=== PATIENT | female | born 1965 ===

== ENCOUNTER 2020-06-16 10:42 | Outpatient (REF) | payer OTHER, SELFPAY ==
--- NOTE | 2020-06-16 | MM_ITS ---
EXAMINATION: MM SCREENING DIGITAL BREAST TOMOSYNTHESIS, BILATERAL CLINICAL INFORMATION: Screening. Asymptomatic. Family history breast cancer, aunt. No prior breast surgery. The lifetime risk of breast cancer based on the Tyrer-Cuzick Model is 6%. COMPARISON: Outside mammography: 05/08/2019, 05/04/2018, 05/03/2017 ([place]) TECHNIQUE: Digital breast tomosynthesis is performed in both the craniocaudal and mediolateral oblique views along with computer-aided detection (CAD). Synthesized 2D images are generated from the tomosynthesis. FINDINGS: The breasts are heterogeneously dense, which may obscure small masses (ACR BI-RADS breast composition Category c). Breast tissue composition borders on average fibroglandular. There is no interval mass or architectural abnormality or developing density. Scattered punctate calcifications and vascular calcifications are again seen. The axilla and skin contours are unremarkable. No significant changes from prior outside exam. MM/MM tomosynthesis screening BI IMPRESSION: No significant changes from prior outside study. ASSESSMENT: BI-RADS 2: Benign RECOMMENDATION: Routine annual mammography screening. This patient's information was entered into a reminder system with a target due date for their next mammogram.
== END 2020-06-16 10:43 | disposition home or self-care (01) ==
LOC: HO.MAMMO 10:42
PROVIDERS: PCP Family Medicine; Visit Provider Family Medicine
DX: Z12.31 Encounter for screening mammogram for malignant neoplasm of breast (principal)
CPT/HCPCS: 77063; 77067

== ENCOUNTER → 2020-06-30 13:08 | Outpatient (BNVA) | payer OTHER, SELFPAY | PROVIDERS: PCP Family Medicine; Referring Provider Family Medicine; Visit Provider Nurse Practitioner | DX: Z76.89 Persons encountering health services in other specified circumstances (principal) ==

== ENCOUNTER 2020-07-08 | Outpatient (REF) | payer OTHER, SELFPAY ==
[2020-07-09 12:34] LABS: Creatinine Urine 192.48 mg/dL; Microalbum/Creatinine Ratio Ur 6.7 ug/mg cr
== END 2020-07-08 00:01 | disposition home or self-care (01) ==
LOC: HO.LNP
PROVIDERS: Visit Provider Family Medicine
DX: I10 Essential (primary) hypertension (principal); E11.9 Type 2 diabetes mellitus without complications; Z23 Encounter for immunization
CPT/HCPCS: 82043

== ENCOUNTER 2020-08-14 10:08 | Outpatient (REF) | payer OTHER, SELFPAY ==
[2020-08-14 10:45] LABS: MANUAL DIFF FLAG NO
[2020-08-14 10:49] LABS: Basophils Percent Auto 0.6 % (0-2); Eosinophils Percent Auto 0.4 % (0-4); Hemoglobin 12.3 g/dl (12.0-16.0); Imm Gran Abs Auto 0.02 X10*3/uL (0.00-0.03); Imm Gran Pct Auto 0.3 % (0.0-0.4); Lymphocytes Absolute Auto 2.6 X10*3/uL (1.2-4.9); Lymphocytes Percent Auto 37.1 % (20-40); Mean Corpuscular HGB Conc 33.2 g/dl (31.0-35.0); Mean Corpuscular Hemoglobin 31.1 pg (27.0-33.0); Mean Corpuscular Volume 93.7 fL (80-98); Mean Platelet Volume 11.1 fL (9.4-12.3); Monocytes Absolute Auto 0.5 X10*3/uL (0.1-1.2); Monocytes Percent Auto 7.7 % (2-11); Neutrophils Absolute Auto 3.8 X10*3/uL (2.0-8.3); Neutrophils Percent Auto 53.9 % (45-73); Platelet Count 316 X10*3/uL (160-400); Red Blood Count 3.95 X10*6/uL (4.20-5.50); Red Cell Distribution Width 12.2 % (11.0-16.0)
[2020-08-14 11:16] LABS: Alanine Aminotransferase 42 U/L (0-31); Albumin Level 4.2 g/dL (3.5-5.0); Alkaline Phosphatase 114 U/L (39-117); Anion Gap 16 (12-20); Aspartate Amino Transferase 31 U/L (5-31); Bilirubin Total 0.3 mg/dL (0.0-1.0); Blood Urea Nitrogen 17 mg/dL (9-16); Calcium 8.9 mg/dL (8.4-10.2); Carbon Dioxide 24 mmol/L (22-29); Chloride 103 mmol/L (96-108); Estimated Glomerular Filt Rate > 60; Glucose Random 209 mg/dL (60-115); Potassium 4.6 mmol/l (3.3-5.1); Sodium 138 mmol/L (135-145); Total Protein 7.8 g/dL (6.5-8.0)
[2020-08-15 11:47] LABS: Alpha Fetoprotein 1.6 ng/mL
== END 2020-08-14 10:09 | disposition home or self-care (01) ==
LOC: HO.LAB 10:08
PROVIDERS: PCP Family Medicine; Visit Provider Nurse Practitioner
DX: K75.81 Nonalcoholic steatohepatitis (NASH) (principal); R10.13 Epigastric pain
CPT/HCPCS: 36415; 80053; 82105; 85025

== ENCOUNTER 2020-09-10 10:48 | Outpatient (REF) | payer OTHER, SELFPAY ==
--- NOTE | ~2020-09-10 | US_ITS ---
EXAMINATION: US ABDOMEN LIMITED CLINICAL INFORMATION: MENENDEZ. COMPARISON: Ultrasound abdomen 07/17/2019 and 12/05/2018. TECHNIQUE: Real-time imaging of the right upper quadrant abdominal viscera. FINDINGS: PANCREAS: Normal. LIVER: Liver echotexture is increased probably representing fatty infiltration. The liver is normal in size. The liver contour is normal. No focal hepatic lesion. There is no intrahepatic biliary duct dilatation seen. GALLBLADDER: The gallbladder is contracted. The patient is nonfasting. No gallstones are seen. COMMON BILE DUCT: Normal in caliber measuring 0.4 cm in diameter. RIGHT KIDNEY: Normal. No hydronephrosis. No renal calculi or focal parenchymal lesions. The kidney measures 11.4 cm in maximum dimension. FREE FLUID: None. US/US abdomen limited IMPRESSION: Echogenic liver probably representing fatty infiltration.
== END 2020-09-10 10:49 | disposition home or self-care (01) ==
LOC: HO.HMGCX 10:48
PROVIDERS: Visit Provider Nurse Practitioner
DX: K75.81 Nonalcoholic steatohepatitis (NASH) (principal)
CPT/HCPCS: 76705

== ENCOUNTER → 2020-09-17 14:12 | Outpatient (BNVA) | payer OTHER, SELFPAY | PROVIDERS: PCP Internal Medicine; Visit Provider Nurse Practitioner ==

== ENCOUNTER → 2020-09-19 13:27 | Outpatient (BNVA) | payer OTHER, SELFPAY | PROVIDERS: PCP Family Medicine; Visit Provider Nurse Practitioner Gerontology | DX: E11.65 Type 2 diabetes mellitus with hyperglycemia (principal) | CPT/HCPCS: 82947; 99212 ==

== ENCOUNTER 2020-11-20 10:05 | Emergency (ER) | payer OTHER, SELFPAY ==
[2020-11-20 11:18] VITALS: BP 143/98; PULSE 91; RESP 18; TEMP 36.9; O2SAT 98; BMI 26.2
--- NOTE | 2020-11-20 11:46 | ED_ITS ---
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 Patient states 5 day history right lower back pain lumbar spine radiating down right leg. Pain increases with ROM and ambulation. Pain is 8/10 and achy. Patient state she has long history of back pain and also a prior history of kidney stones. Patient also has history diabetes and is also on gabapentin for chronic pain. <Enrique Esquivel - Last Filed: 11/20/20 14:40> Related Data Home medications: Previous Rx's Medication Instructions Recorded alcohol swabs 100 pad TOPICAL TID #100 cap 05/07/20 omeprazole 20 mg capsule,delayed 20 mg PO BID 30 Days #60 cap 06/30/20 release metformin 500 mg tablet,extended 500 mg PO BID #180 tab 10/14/20 release 24 hr blood-glucose meter #1 ea 10/15/20 topiramate 25 mg tablet 25 mg PO BID #180 tab 10/21/20 nabumetone 500 mg tablet 500 mg PO BID PRN #60 tab 12/04/20 blood sugar diagnostic 100 strip MISCELLANEOUS TID #100 12/05/20 strip cetirizine 10 mg tablet 10 mg PO DAILY #30 tab 12/05/20 clotrimazole 1 % topical cream 1 appl TOPICAL QAM AND QHS 10 Days 12/05/20 #30 g gabapentin 100 mg capsule 100 mg PO TID #90 cap 12/05/20 lancets 28 gauge #100 ea 12/05/20 sitagliptin 100 mg tablet 100 mg PO DAILY #90 tab 12/05/20 <Enrique Martínez Last Filed: 11/20/20 14:40> Allergies/adverse reactions: Allergies Allergy/AdvReac Type Severity Reaction Status Date / Time No Known Allergies Allergy Verified 12/04/20 13:16 <Enrique Martínez Last Filed: 11/20/20 14:40> Review of Systems Review of Systems: Constitutional : No Weight loss, No Fever, No Chills, No Night Sweats, No Fatigue, No Malaise ENT/Mouth : No Hearing loss, No Ear Pain, No Nasal Congestion, No Sinus Pain, No Hoarseness, No sore throat, No Rhinorrhea, No Swallowing Difficulty Eyes: No Eye Pain, No Swelling, No Redness, No Foreign Body, No Discharge, No Vision Changes Cardiovascular : No Chest Pain, No SOB, No Dyspnea on Exertion, No Orthopnea, No Edema, No Palpitations Respiratory : No Cough, No Sputum, No Wheezing, No Smoke Exposure, No Dyspnea Gastrointestinal : No Nausea, No Vomiting, No Diarrhea, No Constipation, No abdominal Pain, No Hematochezia, No Melena Genitourinary : no irregular bleeding, No Dysuria, No Urinary Frequency, No Hematuria, No Urinary Incontinence, No Urgency, No Flank Pain, No Urinary Flow Changes, No Hesitancy Musculoskeletal : Positive right-sided lumbar back pain radiating down the right leg. Neuro : No Weakness, No Numbness, No Paresthesias, No Loss of Consciousness, No Dizziness, No Headache Psych : No Anxiety/Panic, No Depression, No SI/HI/AH/VH, No Social Issues, Heme/Lymph: No Bruising, No Bleeding,No Lymphadenopathy Endocrine : No Polyuria, No Polydipsia, No Temperature Intolerance <Enrique Esquivel - Last Filed: 11/20/20 14:40> [facility] Past Medical History Attestation statement: The following information was validated with the patient. <Enrique Esquivel - Last Filed: 11/20/20 14:40> Medical History: Medical History (Updated 12/04/20 @ 13:32 by Jocelyne Bravo MD) Diabetes Diabetes mellitus due to underlying condition, uncontrolled, with hyperglycemia, without long-term current use of insulin HTN (hypertension) Menopause MENENDEZ (nonalcoholic steatohepatitis) Sepsis due to urinary tract infection Type 2 diabetes mellitus with hyperglycemia <Enrique Esquivel - Last Filed: 11/20/20 14:40> Surgical History: Surgical History History of carpal tunnel surgery (~05/2020) History of esophagogastroduodenoscopy Hx of colonoscopy <Enrique Esquivel - Last Filed: 11/20/20 14:40> Family History Family History: Family History Father Stomach cancer Mother No problems noted. Brother No problems noted. Maternal Grandmother Diabetes Brother Diabetes Sister Diabetes <Enrique Esquivel - Last Filed: 11/20/20 14:40> Social History Social History: Social History Household Members: Significant Other and Family Alcohol intake: current Alcohol intake frequency: does not drink Smoking Status: Never smoker <Enrique Esquivel - Last Filed: 11/20/20 14:40> Physical Exam Vital Signs: Vital Signs: Last Vital Signs Temp 98.9 F 11/20/20 14:35 Pulse 85 11/20/20 14:35 Resp 14 11/20/20 14:35 BP 112/69 11/20/20 14:35 Pulse Ox 98 11/20/20 14:35 Body Mass Index 26.2 vital signs have been reviewed as normal and appeared to be correct. Blood pressure normal. Heart rate normal. Respiration rate normal. Temperature normal. Oxygen saturation normal. <Enrique Esquivel - Last Filed: 11/20/20 14:40> Vital Signs: Last Vital Signs Temp 98.9 F 11/20/20 14:35 Pulse 85 11/20/20 14:35 Resp 14 11/20/20 14:35 BP 112/69 11/20/20 14:35 Pulse Ox 98 11/20/20 14:35 Body Mass Index 26.2 <Vlad Gutierrez MD - Last Filed: 12/06/20 01:22> Appearance: Alert. Oriented X3. No acute distress. Head: Normal external exam. Normocephalic. Atraumatic. No Haddad signs noted. No raccoon eyes noted Eyes: PERRLA. EOMI. Conjunctiva and sclera normal. Eyelids normal. ENT: EAC normal. TM's Normal. Pharynx normal. Uvula midline. Moist mucous membranes. No trismus noted. No drooling noted. No muffled voice noted. Neck: Normal inspection. Neck supple. FROM. No adenopathy. Thyroid Normal. No meningeal signs. No neck mass noted. CVS: Normal heart rate and rhythm. Heart sound normal. No murmurs noted. Pulses normal throughout. Respiratory: No respiratory distress. Painless inspiration. Breath sounds normal. No wheezes/rales/rhonchi noted. Chest nontender. No accessory muscle usage noted or decreased air movement noted. Abdomen: Soft and nontender. Bowel sounds normal in all 4 quadrants. No distention noted. No organomegaly noted. No visible injury noted. No pulsatile mass palpated Back: Positive paraspinal muscle tenderness of the lumbar spine on the right side no midline tenderness Skin: Skin warm and dry. Normal skin color. Normal skin turgor. No rashes/lesions/lacerations noted. Extremities: Positive straight leg raise on the right no dependent edema noted right calf nontender. Positive pulses sensation intact Neuro: Oriented X 3. No motor deficit. No sensory deficit. Reflexes normal. <Enrique Esquivel - Last Filed: 11/20/20 14:40> Course Course Course Narrative: Case discussed with Dr. Gutierrez plan to get a UA at this time. Pain likely secondary to musculoskeletal pain with a positive straight leg raise 1:27 p.m. minimal relief with a 5 mg Valium given will give patient 5 mg Percocet at this time. <Enrique Esquivel - Last Filed: 11/20/20 14:40> I have discussed the case and management with the BILLIE <Vlad Gutierrez MD - Last Filed: 12/06/20 01:22> Medical Decision Making MDM Narrative Medical decision making narrative: Symptoms seem consistent with a right leg sciatica with a positive straight leg raise will check UA for blood. <Enrique Esquivel - Last Filed: 11/20/20 14:40> Differential Diagnosis Differential Diagnosis: Lumbar strain, right leg sciatica, renal calculi, UTI <Enrique Esquivel - Last Filed: 11/20/20 14:40> Lab Data Labs: Lab Results 11/20/20 Range/Units 12:20 Urine Color YELLOW Urine Appearance CLEAR Urine pH 7.0 (5.0-8.0) Ur Specific [place] 1.020 (1.005-1.025) Urine Protein NEG (NEG-TRACE) MG/DL Urine Glucose (UA) 100 H (NEG) MG/DL Urine Ketones NEG (NEG) MG/DL Urine Blood TRACE (NEG) Urine Nitrite NEG (NEG) Ur Leukocyte Esterase NEG (NEG) Urine RBC 1-4 (0) /HPF Urine WBC 0 (0-4) /HPF Ur Squamous Epith Cells TRACE /LPF Urine Bacteria NONE /LPF <Enrique Esquivel - Last Filed: 11/20/20 14:40> Lab Results 11/20/20 Range/Units 12:20 Urine Color YELLOW Urine Appearance CLEAR Urine pH 7.0 (5.0-8.0) Ur Specific [place] 1.020 (1.005-1.025) Urine Protein NEG (NEG-TRACE) MG/DL Urine Glucose (UA) 100 H (NEG) MG/DL Urine Ketones NEG (NEG) MG/DL Urine Blood TRACE (NEG) Urine Nitrite NEG (NEG) Ur Leukocyte Esterase NEG (NEG) Urine RBC 1-4 (0) /HPF Urine WBC 0 (0-4) /HPF Ur Squamous Epith Cells TRACE /LPF Urine Bacteria NONE /LPF <Vlad Gutierrez MD - Last Filed: 12/06/20 01:22> Discharge Plan Discharge Clinical Impression: Sciatic leg pain <Enrique Esquivel - Last Filed: 11/20/20 14:40> Patient Disposition: Home, Self-Care <Enrique Martínez Last Filed: 11/20/20 14:40> Instructions: Sciatica (ED), Lower Back Exercises (ED) <Enrique Martínez Last Filed: 11/20/20 14:40> Prescriptions: No Action alcohol swabs [Alcohol Prep Pads] Pads, Medicated 100 pad topical TID Qty: 100 RF: 0 metformin 500 mg tablet extended release 24 hr 500 mg PO BID Qty: 180 RF: 2 (DME) blood-glucose meter [FreeStyle Lite Meter] Kit See Rx Instructions .ROUTE .MEDSUPPLY Qty: 1 RF: 0 topiramate 25 mg tablet 25 mg PO BID Qty: 180 RF: 1 sitagliptin [Januvia] 100 mg tablet 100 mg PO DAILY Qty: 90 RF: 0 (DME) lancets 28 gauge misc See Rx Instructions lancet topical TID Qty: 100 RF: 5 FreeStyle Lite Strips Strip 100 strip miscellaneous TID Qty: 100 RF: 5 clotrimazole 1 % cream 1 appl topical QAM AND QHS 10 Days Qty: 30 RF: 0 gabapentin 100 mg capsule 100 mg PO TID Qty: 90 RF: 0 cetirizine 10 mg tablet 10 mg PO DAILY Qty: 30 RF: 3 nabumetone 500 mg tablet 500 mg PO BID PRN (Reason: pain (scale score 4-6)) Qty: 60 RF: 0 omeprazole 20 mg capsule,delayed release(DR/EC) 20 mg PO BID 30 Days Qty: 60 RF: 3 <Enrique Esquivel - Last Filed: 11/20/20 14:40> Referrals: Jocelyne Bravo MD [Primary Care Provider] - 2 days <Enrique Esquivel - Last Filed: 11/20/20 14:40> Interventions: ED Discharge Assessment Last Done: 11/20/20 14:37 <Enrique Esquivel - Last Filed: 11/20/20 14:40> Discharge Date/Time: 11/20/20 14:37 <Enrique Esquivel - Last Filed: 11/20/20 14:40> Print Language: Korean <Enrique Esquivel - Last Filed: 11/20/20 14:40>
[2020-11-20 12:30] LABS: Glucose Urine UA 100 MG/DL (NEG); Leukocyte Esterase Urine NEG (NEG); Nitrite Urine NEG (NEG); Urine Blood TRACE (NEG); Urine Ketones NEG (NEG); Urine Protein NEG (NEG-TRACE)
[2020-11-20 12:31] LABS: Appearance Urine CLEAR; Color Urine YELLOW
[2020-11-20 12:49] LABS: Squamous Epithelial Cell Urine TRACE /LPF; WBC Urine 0 /HPF (0-4)
[2020-11-20] MEDS: diazePAM 5 MG TABLET PO (12:54)
[2020-11-20] MEDS: oxyCODONE HCl Immed Release 5 MG TABLET PO (14:00)
[2020-11-20 14:35] VITALS: BP 112/69; PULSE 85; RESP 14; TEMP 37.2; O2SAT 98
== END 2020-11-20 14:37 | disposition home or self-care (01) ==
PROVIDERS: Physician Assistant; Emergency Provider Emergency Medicine; PCP Internal Medicine
DX: M54.41 Lumbago with sciatica, right side (principal); M25.551 Pain in right hip; Z79.899 Other long term (current) drug therapy
CPT/HCPCS: 81001; 99284

== ENCOUNTER → 2020-12-19 14:32 | Outpatient (BNVA) | payer OTHER, SELFPAY | PROVIDERS: PCP Internal Medicine; Visit Provider Nurse Practitioner Gerontology | DX: E11.65 Type 2 diabetes mellitus with hyperglycemia (principal); R20.0 Anesthesia of skin; R35.0 Frequency of micturition; R35.1 Nocturia; R63.1 Polydipsia; Z79.4 Long term (current) use of insulin; Z79.899 Other long term (current) drug therapy | CPT/HCPCS: 82947; 99212 ==

== ENCOUNTER → 2021-01-01 16:04 | Outpatient (BNVA) | payer OTHER, SELFPAY | PROVIDERS: PCP Internal Medicine; Visit Provider Anesthesiology | DX: M51.36 Other intervertebral disc degeneration, lumbar region (principal); M54.16 Radiculopathy, lumbar region | CPT/HCPCS: 99202 ==

== ENCOUNTER 2021-02-09 17:55 | Outpatient (REF) | payer OTHER, SELFPAY ==
--- NOTE | ~2021-02-09 | MR_ITS ---
EXAMINATION: MR LUMBAR SPINE WITHOUT CONTRAST CLINICAL INFORMATION: 55-year-old with radiculopathy, lumbar region. Patient states low back pain and right leg pain and numbness. COMPARISON: None TECHNIQUE: MRI of the lumbar spine was obtained using routine sequences without contrast. FINDINGS: Coronal Alignment: Mild upper lumbar levocurvature noted. Sagittal Alignment: Normal. Lumbosacral Junction: Normal. Vertebral Bodies: Normal height. Disc Space Heights: Moderate disc space height loss at L5-S1 is noted with associated disc desiccation. Remaining lumbar intervertebral disc space heights are well maintained, with moderate disc desiccation at L4-L5 and L3-L4. Bone Marrow: No significant marrow-replacing process or bone marrow edema. Conus Medullaris: Terminates at T12-L1.. Morphology and signal is normal. Intradural Nerve Roots: Within normal limits. L5-S1: Anterolateral spondylosis asymmetric to the left and diffuse disc bulging is noted slightly asymmetric to the right, with a small right subarticular extruded disc herniation with slight cephalad migration, with mild flattening of the dural sac and minimal narrowing of the right subarticular zone. Mild facet arthrosis is noted bilaterally with [id number] right-sided and moderate left-sided neural foraminal stenosis without definite neural impingement. L4-L5: Mild diffuse disc bulging is noted with a small central annular fissure and slight flattening of the ventral dural sac with minor anterolateral spondylosis. There is [id number] bilateral facet arthropathy with mild ligament of flavum thickening, without significant spinal canal stenosis. No significant neural foraminal stenosis. L3-L4: Mild diffuse disc bulging is noted with a right lateral foraminal annular fissure and slight flattening of the dural sac with minor spondylosis. There is zdrk-sc-[id number] facet arthrosis without significant canal stenosis. There is mild right-sided neural foraminal narrowing without neural impingement. L2-L3: Small right-sided foraminal/extra foraminal disc protrusion noted without neural impingement. Minor spondylosis. No significant facet arthropathy, canal or neuroforaminal stenosis. L1-L2: No disc bulge or herniation and no significant facet arthropathy, canal or neuroforaminal stenosis. Paraspinal/Retroperitoneal: The paravertebral soft tissues appear grossly unremarkable. MR/MR lumbar spine wo con IMPRESSION: 1. Discogenic degenerative changes primarily at L5-S1 with spondylosis, disc bulging and mild facet arthrosis at this level with a superimposed small right subarticular extruded disc herniation with slight cephalad migration with mild narrowing of the right subarticular zone and ehxh-ne-ezkoabwo foraminal narrowing, left more than right. 2. Mild disc bulging and ipxs-hg-gcwfbnag facet arthropathy at L4-5 without significant spinal canal or neuroforaminal narrowing. 3. Disc bulging and right lateral annular fissuring at L3-4 with facet arthropathy and mild right-sided neural foraminal narrowing without neural impingement.
== END 2021-02-09 17:56 | disposition home or self-care (01) ==
LOC: HO.MRI 17:55
PROVIDERS: PCP Internal Medicine; Visit Provider Anesthesiology
DX: M54.16 Radiculopathy, lumbar region (principal); M51.36 Other intervertebral disc degeneration, lumbar region
CPT/HCPCS: 72148

== ENCOUNTER 2021-02-12 09:00 | Outpatient (RCR) | payer OTHER, SELFPAY ==
--- NOTE | 2020-12-17 11:36 | MHC.PT.EP ---
[facility] [place] Office [place] Office [place] Office [address] Cami Wen [address] [phone] F: [phone] F: [phone] F: [phone] F: [phone] Physical Therapy Plan of Care Date of Evaluation: Date of Surgery: Diagnosis: LUMBAR REGION RADICULOPATHY Assessment: 55 YO FEMALE REF TO PT W RIGHT LBP/ RADICULOPATHY EXACERBATED 11/15/20 - SHE WENT TO THE ER DUE TO SXS,DX W SCIATICA, Pt HAS A H/O LBP. OBJECTIVE FINDINGS: DECR HIP AND HS FLEXIB, DECR POSTURAL AWARENESS AND POOR BODY MECH,(-) SENSORIMOTOR DEFICITS , (+) PELVIC ASYM, LIMITED TRUNK EXT, AND GENERAL PROX LEs/ CORE WEAKNESS. 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 Frequency and Duration: The patient will be seen 2x WEEK x 5 WKS Short Term Goals: Pt'S LBP DECR TO 09/03 AND Rt LE RADIC SXS REDUCED BY 75% IN 2 WKS Pt INDEP W SELF POSTURAL CORRECTION IN 2 WKPt DEMON WFL HIP/ HS FLEXIB AND WFL PELVIC SYMM IN 3 WKS Agricultural Education Instructor Goals: Pt INDEP W HEP AND SELF-SX MGMT TECHN IN 5 WKS Pt RESUME REG ADLs/ ACTIVITIES EVIDENT W IMPROVED OSWESTRY BY AT LEAST 5 POINTS ( 31/45 AT EVAL) IN 5 WKS Treatment Plan: Modalities to reduce pain, spasms and effusion. Manual therapy to restore motion and function. Therapeutic exercise to improve strength and flexibility. Neuromuscular re-education for posture and balance. Therapeutic activities to return to functional activities of daily living. Electronically signed by: Vikki Syed,PT Please sign and return to therapist. Thank you for your referral.
--- NOTE | 2021-02-12 14:42 | MHC.PT.DC ---
[facility] [place] Office [place] Office [place] Office [address] Cami Wen [address] [phone] F: [phone] F: [phone] F: [phone] F: [phone] Physical Therapy Discharge Report Diagnosis: LUMBAR REGION RADICULOPATHY Date of Surgery: Date of Evaluation: 12/17/20 Date of Discharge: 02/12/21 Treatments to Date: 8 Cancellations to Date: 2 No Shows to Date: 2 Discharge Status: Patient Elected to Stop Recommend MD Follow-up Visit Non-compliance Discharge Summary: Pt I with HEP. Pt states she feels some sx relief after PT, however, she notes intermittent radicular sxs into her toes - recommend MD f/u if sxs persist despite HEP and self-postural correction. Pt had diffic attending sched PT appts, she has a thorough HEP for progression. Electronically signed by: Vikki Syed,PT Please sign and return to therapist. Thank you for your referral.
== END 2021-02-12 14:44 | disposition home or self-care (01) ==
LOC: HO.PTCHIC 09:00
PROVIDERS: PCP Internal Medicine; Visit Provider Hospitalist
DX: M54.16 Radiculopathy, lumbar region (principal)
CPT/HCPCS: 97110; 97140; 97161

== ENCOUNTER 2021-03-09 10:03 | Outpatient (REF) | payer OTHER, SELFPAY ==
[2021-03-09 13:46] LABS: Creatinine Urine 251.33 mg/dL; Microalbum/Creatinine Ratio Ur 7.9 ug/mg cr
[2021-03-09 13:49] LABS: Alanine Aminotransferase 25 U/L (0-31); Albumin Level 4.2 g/dL (3.5-5.0); Alkaline Phosphatase 89 U/L (39-117); Anion Gap 15 (12-20); Aspartate Amino Transferase 23 U/L (5-31); Bilirubin Total 0.3 mg/dL (0.0-1.0); Blood Urea Nitrogen 13 mg/dL (9-16); Calcium 9.3 mg/dL (8.4-10.2); Carbon Dioxide 22 mmol/L (22-29); Chloride 109 mmol/L (96-108); Cholesterol 227 mg/dL; Estimated Glomerular Filt Rate > 60; Glucose Fasting 158 mg/dL (60-99); HDL Cholesterol 43 mg/dL; LDL Cholesterol Calculated 139 mg/dl; Potassium 4.1 mmol/L (3.3-5.1); Sodium 142 mmol/L (135-145); Total Protein 7.4 g/dL (6.5-8.0); Triglycerides 229 mg/dL
[2021-03-09 14:10] LABS: Vitamin D 25-OH Total 21.8 ng/mL (>30)
[2021-03-11 02:52] LABS: LDL Cholesterol Direct 153 mg/dL (<100)
== END 2021-03-09 10:04 | disposition home or self-care (01) ==
LOC: HO.LAB 10:03
PROVIDERS: Nurse Practitioner Gerontology; PCP Internal Medicine; Visit Provider Internal Medicine
DX: E11.65 Type 2 diabetes mellitus with hyperglycemia (principal); Z78.0 Asymptomatic menopausal state
CPT/HCPCS: 36415; 80053; 80061; 82043; 82306; 83721

== ENCOUNTER → 2021-03-10 13:01 | Outpatient (BNVA) | payer OTHER, SELFPAY | PROVIDERS: PCP Internal Medicine; Visit Provider Nurse Practitioner ==

== ENCOUNTER 2021-04-09 09:55 | Outpatient (REF) | payer OTHER, SELFPAY ==
--- NOTE | ~2021-04-09 | US_ITS ---
EXAMINATION: US ABDOMEN LIMITED CLINICAL INFORMATION: Nonalcoholic steatohepatitis. COMPARISON: Limited abdominal ultrasound 09/10/2020. Ultrasound abdomen 07/17/2019. TECHNIQUE: Real-time imaging of the right upper quadrant abdominal viscera. FINDINGS: PANCREAS: Normal. LIVER: Liver echotexture is increased probably representing fatty infiltration. This is similar to previous exam. The liver is normal in size. The liver contour is normal. No focal hepatic lesion. There is no intrahepatic biliary duct dilatation seen. GALLBLADDER: Normal. The gallbladder is physiologically distended without evidence of stones, sludge, polyps, wall thickening or pericholecystic fluid. COMMON BILE DUCT: Normal in caliber measuring 0.3 cm in diameter. RIGHT KIDNEY: Normal. No hydronephrosis. No renal calculi or focal parenchymal lesions. The kidney measures 12.0 cm in maximum dimension. FREE FLUID: None. US/US abdomen limited IMPRESSION: Echogenic liver probably representing fatty infiltration.
[2021-04-09 11:15] LABS: MANUAL DIFF FLAG NO
[2021-04-09 11:41] LABS: Basophils Percent Auto 0.3 % (0-2); Eosinophils Percent Auto 0.6 % (0-4); Hematocrit 35.7 % (37-47); Hemoglobin 11.4 g/dl (12.0-16.0); Imm Gran Abs Auto 0.03 X10*3/uL (0.00-0.03); Imm Gran Pct Auto 0.4 % (0.0-0.4); Lymphocytes Absolute Auto 2.5 X10*3/uL (1.2-4.9); Lymphocytes Percent Auto 36.4 % (20-40); Mean Corpuscular HGB Conc 31.9 g/dl (31.0-35.0); Mean Corpuscular Hemoglobin 30.5 pg (27.0-33.0); Mean Corpuscular Volume 95.5 fL (80-98); Mean Platelet Volume 10.9 fL (9.4-12.3); Monocytes Absolute Auto 0.6 X10*3/uL (0.1-1.2); Monocytes Percent Auto 8.2 % (2-11); Neutrophils Absolute Auto 3.7 X10*3/uL (2.0-8.3); Neutrophils Percent Auto 54.1 % (45-73); Platelet Count 259 X10*3/uL (160-400); Red Blood Count 3.74 X10*6/uL (4.20-5.50); Red Cell Distribution Width 12.9 % (11.0-16.0); White Blood Count 6.9 X10*3/uL (4.8-10.8)
[2021-04-09 11:46] LABS: Amylase 82 U/L (28-100); Appearance Urine CLEAR; Blood Urea Nitrogen 14 mg/dL (9-16); Color Urine YELLOW; Estimated Glomerular Filt Rate > 60; Glucose Urine UA NEG (NEG); Lactate Dehydrogenase 175 U/L (122-220); Leukocyte Esterase Urine NEG (NEG); Lipase 34 U/L (8-78); Nitrite Urine NEG (NEG); PH 5.5 (5.0-8.0); Specific Gravity - Urine >= 1.030 (1.005-1.025); UACC Culture Trigger NO; Urine Blood TRACE (NEG); Urine Ketones NEG (NEG); Urine Protein NEG (NEG-TRACE)
[2021-04-09 12:00] LABS: Mucus Urine 2+ /LPF; RBC Urine 0-2 /HPF (0); Squamous Epithelial Cell Urine TRACE /LPF; WBC Urine 0-2 /HPF (0-4)
[2021-04-09 12:13] LABS: Ferritin 244 ng/mL (10-250)
[2021-04-13 13:51] LABS: Alpha Fetoprotein 1.6 ng/mL
== END 2021-04-09 09:56 | disposition home or self-care (01) ==
LOC: HO.HMGCX 09:55
PROVIDERS: PCP Internal Medicine; Visit Provider Nurse Practitioner
DX: K75.81 Nonalcoholic steatohepatitis (NASH) (principal); R10.10 Upper abdominal pain, unspecified; R11.0 Nausea
CPT/HCPCS: 36415; 76705; 81001; 82105; 82150; 82565; 82728; 83615; 83690; 84520; 85025

== ENCOUNTER → 2021-04-28 08:26 | Outpatient (BNVA) | payer OTHER, SELFPAY | PROVIDERS: PCP Internal Medicine; Visit Provider Nurse Practitioner Gerontology | DX: E11.65 Type 2 diabetes mellitus with hyperglycemia (principal); E11.40 Type 2 diabetes mellitus with diabetic neuropathy, unspecified; E78.5 Hyperlipidemia, unspecified | CPT/HCPCS: 82947; 83036; 99212 ==

== ENCOUNTER 2021-07-01 13:17 | Outpatient (REF) | payer OTHER, SELFPAY ==
[2021-07-01 14:27] LABS: Appearance Urine CLEAR; Color Urine YELLOW; Glucose Urine UA NEG (NEG); Leukocyte Esterase Urine NEG (NEG); Nitrite Urine NEG (NEG); Specific Gravity - Urine 1.015 (1.005-1.025); Urine Blood NEG (NEG); Urine Ketones NEG (NEG); Urine Protein NEG (NEG-TRACE)
[2021-07-01 14:31] LABS: Alanine Aminotransferase 14 U/L (0-31); Albumin Level 4.3 g/dL (3.5-5.0); Alkaline Phosphatase 94 U/L (39-117); Anion Gap 12 (12-20); Aspartate Amino Transferase 20 U/L (5-31); Bilirubin Total 0.5 mg/dL (0.0-1.0); Blood Urea Nitrogen 18 mg/dL (9-16); Carbon Dioxide 26 mmol/L (22-29); Chloride 108 mmol/L (96-108); Cholesterol 152 mg/dL; Estimated Glomerular Filt Rate > 60; Glucose Random 93 mg/dL (60-115); HDL Cholesterol 47 mg/dL; LDL Cholesterol Calculated 84 mg/dl; Potassium 4.1 mmol/L (3.3-5.1); Sodium 142 mmol/L (135-145); Total Protein 7.6 g/dL (6.5-8.0); Triglycerides 108 mg/dL
== END 2021-07-01 13:18 | disposition home or self-care (01) ==
LOC: HO.LAB 13:17
PROVIDERS: Nurse Practitioner; PCP Internal Medicine; Visit Provider Nurse Practitioner Gerontology
DX: E11.65 Type 2 diabetes mellitus with hyperglycemia (principal); R11.0 Nausea; R10.10 Upper abdominal pain, unspecified
CPT/HCPCS: 36415; 80053; 80061; 81003

== ENCOUNTER 2021-07-31 09:02 | Outpatient (REF) | payer OTHER, SELFPAY ==
--- NOTE | ~2021-07-31 | CT_ITS ---
EXAMINATION: CT ABDOMEN WITH CONTRAST CLINICAL INFORMATION: Upper abdominal pain COMPARISON: Previous abdominal ultrasound most recent March 2021 TECHNIQUE: Contiguous axial thin section helical images of the abdomen were performed following the administration of oral contrast and 85 mL of Omnipaque 350 intravenous contrast. The data set was reformatted in the coronal and sagittal planes and reviewed on an independent workstation. This CT examination was performed using dose optimization techniques as appropriate, variously including the following: *Automated exposure control *Adjustment of mA and/or kV according to patient size (this includes techniques or standardized protocols for targeted exams where dose is matched to indication/reason for exam; i.e. extremities or head) *Use of iterative reconstruction technique DLP: 139 mGy-cm FINDINGS: LUNG BASES: Unremarkable LIVER, GALLBLADDER, AND BILIARY TREE: The liver is low in attenuation suggestive of fatty infiltration. The liver is otherwise unremarkable. The gallbladder is unremarkable. There is no biliary duct dilatation. PANCREAS: Unremarkable SPLEEN: Unremarkable ADRENAL GLANDS AND KIDNEYS: Unremarkable BOWEL LOOPS: Unremarkable. The appendix is unremarkable. LYMPH NODES: Normal. VASCULAR: Unremarkable. BONES: There are degenerative changes of the spine. CT/CT abdomen w con IMPRESSION: Fatty liver otherwise unremarkable exam. Fleischner guidelines were followed.
[2021-07-31] MEDS: iohexoL 350 MG/ML 100 ML INFUS..BTL IV (11:27)
[2021-07-31] MEDS: Barium Sulfate Oral (Berry) 450 ML ORAL.SUSP PO (11:28)
== END 2021-07-31 09:03 | disposition home or self-care (01) ==
LOC: HO.CT 09:02
PROVIDERS: PCP Internal Medicine; Visit Provider Nurse Practitioner
DX: R10.10 Upper abdominal pain, unspecified (principal); R11.0 Nausea; K75.81 Nonalcoholic steatohepatitis (NASH)
CPT/HCPCS: 74160; Q9967

== ENCOUNTER 2021-08-12 09:58 | Outpatient (REF) | payer OTHER, SELFPAY ==
[2021-08-12 15:50] LABS: CT PCR NOT DETECTED (Not Detect.); NG PCR NOT DETECTED (Not Detect.)
[2021-08-13 12:13] LABS: BV Int Neg Control Negative (Negative); BV Int Pos Control Positive (Positive)
[2021-08-14 13:37] LABS: HPV mRNA E6/E7 rflx Not Detected (Not Detected)
== END 2021-08-12 09:59 | disposition home or self-care (01) ==
LOC: HO.LAB 09:58
PROVIDERS: PCP Internal Medicine; Visit Provider Advanced Practice Midwife
DX: Z01.411 Encounter for gynecological examination (general) (routine) with abnormal findings (principal); Z11.51 Encounter for screening for human papillomavirus (HPV); R10.2 Pelvic and perineal pain; R35.0 Frequency of micturition; Z20.2 Contact with and (suspected) exposure to infections with a predominantly sexual mode of transmission; Z86.018 Personal history of other benign neoplasm
CPT/HCPCS: 81003; 87480; 87491; 87510; 87591; 87624; 87660; 88142

== ENCOUNTER 2021-08-21 07:45 | Outpatient (REF) | payer OTHER, SELFPAY ==
--- NOTE | ~2021-08-21 | MM_ITS ---
EXAMINATION: MM DIAGNOSTIC DIGITAL BREAST TOMOSYNTHESIS, BILATERAL US BREAST TARGETED, RIGHT CLINICAL INFORMATION: Right breast lump felt by physician. The lifetime risk of breast cancer based on the Tyrer-Cuzick Model is 6.1%. COMPARISON: Mammography: 06/16/2020 and studies dating back to 05/03/2017 TECHNIQUE: Digital breast tomosynthesis is performed in both the craniocaudal and mediolateral oblique views along with computer-aided detection (CAD). Synthesized 2-D images are generated from the tomosynthesis. Targeted right breast ultrasound. FINDINGS: There are scattered areas of fibroglandular density (ACR BI-RADS breast composition Category b). There are no significant masses, abnormal calcifications, or other abnormalities. There is multiplicity and bilaterality of calcifications. Targeted right breast ultrasound was performed. No abnormal cystic or solid mass identified. No region of abnormal distal sound shadowing. No edematous change within the parenchyma. Results are discussed with the patient at time of visit. MM/MM tomosynthesis diagnostic BI IMPRESSION: There are no significant changes from prior study. No mammographic or ultrasound abnormality of the right breast identified. ASSESSMENT: BI-RADS 1: Negative. RECOMMENDATION: Routine annual mammography screening. This patient's information was entered into a reminder system with a target due date for their next mammogram.
--- NOTE | ~2021-08-21 | US_ITS ---
EXAMINATION: US DIAGNOSTIC ULTRASOUND BREAST, RIGHT CLINICAL INFORMATION: Palpable mass felt by patient's doctor 10 to 11:00 position.. COMPARISON: Mammography dating back to May 03, 2017. TECHNIQUE: Ultrasound of the breast is performed with real-time whiting scale imaging and color Doppler. FINDINGS: There is no focal suspicious finding. There is no solid mass, architectural abnormality, duct ectasia, or edema in the soft tissue planes. Results are discussed with the patient at time of visit. US/US breast RT limited IMPRESSION: No ultrasound abnormality in region of palpable abnormality right breast. ASSESSMENT: BI-RADS 1: Negative RECOMMENDATION: Routine annual mammography screening. This patient's information was entered into a reminder system with a target due date for their next mammogram.
== END 2021-08-21 07:46 | disposition home or self-care (01) ==
LOC: HO.MAMMO 07:45
PROVIDERS: PCP Internal Medicine; Visit Provider Advanced Practice Midwife
DX: N63.15 Unspecified lump in the right breast, overlapping quadrants (principal)
CPT/HCPCS: 76642; 77062; 77066

== ENCOUNTER → 2021-08-26 11:15 | Outpatient (BNVA) | payer OTHER, SELFPAY | PROVIDERS: PCP Internal Medicine; Visit Provider Nurse Practitioner Gerontology | DX: E11.40 Type 2 diabetes mellitus with diabetic neuropathy, unspecified (principal); E78.5 Hyperlipidemia, unspecified; Z79.84 Long term (current) use of oral hypoglycemic drugs | CPT/HCPCS: 82947; 83036; 99212 ==

== ENCOUNTER 2021-09-02 12:43 | Outpatient (REF) | payer OTHER, SELFPAY ==
--- NOTE | ~2021-09-02 | US_ITS ---
EXAMINATION: US PELVIS CLINICAL INFORMATION: Pelvic and perineal pain COMPARISON: None TECHNIQUE: Ultrasound of the pelvis is performed using both transabdominal and transvaginal transducers along with Doppler. Transvaginal imaging is performed due to inadequate visualization transabdominally. FINDINGS: Uterus: The uterus is retroverted, retroflexed and measures 5.3 cm in length, 2.1 mL in AP and 4.0 CM in transverse dimension. The double wall endometrial thickness is 0.2 cm. The uterus is smooth in contour and has heterogeneous echotexture. No visible fibroid. Adnexa: Both ovaries are visualized. There is normal color flow to the adnexa. There is no ovarian torsion. There is no pelvic ascites or fluid collection. Right ovary measures 10.1 x 0.7 x 0.6 cm and volume 0.22 mL. Previously it measured 1.8 x 0.9 x 1.2 cm. Left ovary measures 1.6 x 0 0.6, 0.6 cm and volume 0.3 mL There is no free fluid in the cul-de-sac. US/US pelvic and transvaginal IMPRESSION: Retroverted and retroflexed uterus with a heterogeneous echotexture. No focal lesions. The ovaries are unremarkable.
== END 2021-09-02 12:44 | disposition home or self-care (01) ==
LOC: HO.US 12:43
PROVIDERS: Visit Provider Advanced Practice Midwife
DX: R10.2 Pelvic and perineal pain (principal)
CPT/HCPCS: 76830; 76856

== ENCOUNTER → 2021-09-16 11:32 | Outpatient (BNVA) | payer OTHER, SELFPAY | PROVIDERS: PCP Internal Medicine; Visit Provider Advanced Practice Midwife ==

== ENCOUNTER → 2021-10-30 12:53 | Outpatient (BNVA) | payer OTHER, SELFPAY | PROVIDERS: PCP Internal Medicine; Referring Provider Internal Medicine; Visit Provider Nurse Practitioner | DX: R11.2 Nausea with vomiting, unspecified (principal); A08.4 Viral intestinal infection, unspecified | CPT/HCPCS: 99212 ==

== ENCOUNTER 2021-12-15 11:22 | Outpatient (REF) | payer OTHER, SELFPAY ==
--- NOTE | ~2021-12-15 | US_ITS ---
EXAMINATION: US ABDOMEN COMPLETE CLINICAL INFORMATION: Right upper quadrant pain.. COMPARISON: None TECHNIQUE: Real-time imaging of the abdominal viscera. FINDINGS: PANCREAS: Normal. ABDOMINAL AORTA: The proximal, mid, and distal segments are normal in caliber. INFERIOR VENA CAVA: Visualized portions are normal. LIVER: The liver is normal in size. The liver contour is normal. Parenchymal echogenicity is increased. No focal hepatic lesion. There is no intrahepatic biliary duct dilatation seen. GALLBLADDER: Normal. The gallbladder is physiologically distended without evidence of stones, sludge, polyps, wall thickening or pericholecystic fluid. COMMON BILE DUCT: Normal in caliber measuring 0.40 cm in diameter. RIGHT KIDNEY: No hydronephrosis. No renal calculi or focal parenchymal lesions. The kidney measures 12.5 cm in maximum dimension. There is echogenic stone lower pole measuring 0.3 x 0.2 x 0.3 cm. LEFT KIDNEY: Punctate foci seen within the kidney cortex no echogenic shadowing seen. No hydronephrosis. No renal calculi or focal parenchymal lesions. The kidney measures 10.8 cm in maximum dimension. SPLEEN: Normal. The spleen measures 10.4 cm in maximum dimension. FREE FLUID: None. US/US abdomen complete IMPRESSION: Mild hepatic steatosis. No focal lesion. Nonobstructive echogenic stone lower pole right kidney
== END 2021-12-15 11:23 | disposition home or self-care (01) ==
LOC: HO.HMGCX 11:22
PROVIDERS: Visit Provider Internal Medicine
DX: R10.11 Right upper quadrant pain (principal)
CPT/HCPCS: 76700

== ENCOUNTER → 2022-03-10 10:40 | Outpatient (BNVA) | payer OTHER, SELFPAY | PROVIDERS: PCP Internal Medicine; Visit Provider Nurse Practitioner | DX: A08.4 Viral intestinal infection, unspecified (principal); K58.2 Mixed irritable bowel syndrome | CPT/HCPCS: 99212 ==

== ENCOUNTER 2022-05-06 10:47 | Day surgery (SDC) | payer OTHER, SELFPAY ==
--- NOTE | 2022-05-05 08:45 | HO.ANESPROP2 ---
Documented by User: Amparo Alonzo NP 05/05/22 08:46 HPI - Anesthesia Eval Consult details Narrative: 56yo F for Upper Endoscopy PMFSH Active Problems Active Problems: All Active Problems (Updated 01/29/22 @ 14:54 by Jocelyne Bravo MD) Right upper quadrant abdominal pain (Acute) Viral gastroenteritis (Acute) Nausea and vomiting (Acute) Breast mass, right (Acute) History of uterine fibroid (Acute) Irritable bowel syndrome with mixed bowel habits (Acute) Type 2 diabetes mellitus with diabetic neuropathy, unspecified (Acute) Hyperlipidemia LDL goal <100 (Acute) Cellulitis of eyelid (Acute) Nausea (Acute) Upper abdominal pain (Acute) Radiculopathy, lumbar region (Acute) Disc degeneration, lumbar (Acute) Menopause (Acute) Diabetes mellitus due to underlying condition, uncontrolled, with hyperglycemia, without long-term current use of insulin (Acute) Lumbar radiculopathy, acute (Acute) MENENEDZ (nonalcoholic steatohepatitis) (Acute) Numbness of left foot (Acute) Diabetes type 2, controlled (Acute) Sacroiliac joint pain (Acute) Dysuria (Acute) Epigastric pain (Acute) GERD (gastroesophageal reflux disease) (Acute) Past Medical History Medical History Diabetes Diabetes mellitus due to underlying condition, uncontrolled, with hyperglycemia, without long-term current use of insulin Disc degeneration, lumbar History of uterine fibroid HTN (hypertension) Hyperlipidemia LDL goal <100 Irritable bowel syndrome with mixed bowel habits Menopause MENENDEZ (nonalcoholic steatohepatitis) Radiculopathy, lumbar region Right upper quadrant abdominal pain Sepsis due to urinary tract infection Type 2 diabetes mellitus with diabetic neuropathy, unspecified Type 2 diabetes mellitus with hyperglycemia Family History Family History Father Stomach cancer Mother No problems noted. Brother No problems noted. Maternal Grandmother Diabetes Brother Diabetes Sister Diabetes Mental health disorder Son Substance use disorder Son Substance use disorder Son Substance use disorder Daughter Substance use disorder Surgical History Surgical History History of carpal tunnel surgery (~05/2020) History of esophagogastroduodenoscopy Hx of colonoscopy Hx of tubal ligation Social History Social History Household Members: Significant Other and Family Housing: Apartment Alcohol intake: current Alcohol intake frequency: does not drink Patient Tobacco Use Status: Never used Tobacco e-Cigarette/Vaping Use: Never Used Are you DNR?: No Advance Directives: No Advance Directives Information Provided: Yes Recently lost weight without trying: No Nutrition Risks: No Nutritional Risk Patient : No Current occupational status: unemployed Cognitive needs: No Hearing needs: No Vision needs: No Meds Allergies Allergy/AdvReac Type Severity Reaction Status Date / Time prednisone Allergy Vomiting Uncoded 03/10/22 10:57 Home Medications Medication Instructions Recorded Confirmed Last Taken Type trazodone 50 mg tablet 50 mg PO BEDTIME 06/17/21 11/30/21 Unknown History buspirone 7.5 mg tablet 7.5 mg PO TID 11/05/21 11/30/21 Unknown History duloxetine 30 mg capsule,delayed 30 mg PO BID 11/05/21 11/30/21 Unknown History release Exam Exam Date and Time: May 05, 2022 0845 Assessment and Plan Assessment Anesthesia Assessment: Chart Reviewed Documented by User: Malathi Zarate MD 05/06/22 12:30 [facility] Past Medical History Medical History Diabetes Diabetes mellitus due to underlying condition, uncontrolled, with hyperglycemia, without long-term current use of insulin Disc degeneration, lumbar History of uterine fibroid HTN (hypertension) Hyperlipidemia LDL goal <100 Irritable bowel syndrome with mixed bowel habits Menopause MENENDEZ (nonalcoholic steatohepatitis) Radiculopathy, lumbar region Right upper quadrant abdominal pain Sepsis due to urinary tract infection Type 2 diabetes mellitus with diabetic neuropathy, unspecified Type 2 diabetes mellitus with hyperglycemia Functional capacity: independent ambulation Patient : No Family History Family History Father Stomach cancer Mother No problems noted. Brother No problems noted. Maternal Grandmother Diabetes Brother Diabetes Sister Diabetes Mental health disorder Son Substance use disorder Son Substance use disorder Son Substance use disorder Daughter Substance use disorder Family history of problems with anesthesia: No Surgical History Surgical History History of carpal tunnel surgery (~05/2020) History of esophagogastroduodenoscopy Hx of colonoscopy Hx of tubal ligation History of Problems with Anesthesia: No Social History Social History Household Members: Significant Other and Family Housing: Apartment Alcohol intake: current Alcohol intake frequency: does not drink Patient Tobacco Use Status: Never used Tobacco e-Cigarette/Vaping Use: Never Used Are you DNR?: No Advance Directives: No Advance Directives Information Provided: Yes Recently lost weight without trying: No Nutrition Risks: No Nutritional Risk Patient : No Current occupational status: unemployed Cognitive needs: No Hearing needs: No Vision needs: No Meds Allergies Allergy/AdvReac Type Severity Reaction Status Date / Time prednisone Allergy Vomiting Uncoded 03/10/22 10:57 Home Medications Medication Instructions Recorded Confirmed Last Taken Type trazodone 50 mg tablet 50 mg PO BEDTIME 06/17/21 11/30/21 Unknown History buspirone 7.5 mg tablet 7.5 mg PO TID 11/05/21 11/30/21 Unknown History duloxetine 30 mg capsule,delayed 30 mg PO BID 11/05/21 11/30/21 Unknown History release Exam Airway Mallampati Class: II TM Dist: >3cm Heart: RRR Lungs: CTA Assessment and Plan Final Anesthetic Review Family History of Problems with Anesthesia: No History of Problems with Anesthesia: No ASA Class: II Final Preanesthetic Review: No Changes in Pt Med Stat, Meds/Allgs Chart Reviewed, Consent Obtained/Reviewed and Anes Risks/Benef Reviewed Patient Risk: Low Procedure Risk: Low Anesthetic Plan Anesthetic Plan: MAC: Disposition: Standard PACU
[2022-05-06 07:25] VITALS: BMI 23.9
[2022-05-06 10:55] VITALS: BP 134/78; PULSE 89; RESP 20; TEMP 36.1; O2SAT 99
--- NOTE | 2022-05-06 11:12 | MHC.SHP ---
Pre-Procedural Eval Section A Date of Service: 05/06/22 Section B Chief Complaint: Epigastric pain Details of Present Illness: 56y.o F with persistent abd pain, N,V. Here for diagnostic EGD Fam hx of gastric ca in father. Relevant Family History (Specify if Yes): Yes Medical History: Significant History (Diabetes, HTN, HLD, MENENDEZ ) History of Previous Operations: Relevant previous surgery/procedure and date(s) (History of carpal tunnel surgery (~05/2020) History of esophagogastroduodenoscopy Hx of colonoscopy Hx of tubal ligation) Allergies: Allergies Allergy/AdvReac Type Severity Reaction Status Date / Time prednisone Allergy Vomiting Uncoded 03/10/22 10:57 Review of Systems Review of Systems Comment: 10 point ROS negative except as noted above Exam Exam Comment: Gen appear: No acute distress, well nourished HEENT: no icterus, Chest: No overt resp distress CVS: S1/S2, regular Abd: soft, nontender, nondistended Psych: Stable affect, answering questions appropriately Neuro: A/Ox3 noted to move all extremities spontaneously Ext: no peripheral edema Plan Diagnosis/Plan: Unchanged I have reviewed the history and physical and performed a pertinent physical examination on my patient. No changes have occurred unless specified.
[2022-05-06] MEDS: Lactated Ringers 1,000 ML 100 ML IVCONT (11:19)
[2022-05-06 11:50] LABS: Glucose, Whole Blood 101 mg/dL (60-115)
--- NOTE | 2022-05-06 11:52 | P.OP_ITS ---
Operative Note Operative Note Date of Service: 05/06/22 Narrative: Procedure: Esophagogastroduodenoscopy Endoscopist: Jess Robison MD Indication: Abdominal pain, N,V Anesthesia Provider: Dr Harrison Anesthesia Type: MAC ?? EGD Procedure:?? The procedure, indications, preparation and potential complications were reviewed with the patient, who indicated understanding and gave written informed consent to proceed. A physical exam was performed. The endoscope was introduced through the mouth, and advanced to the second part of duodenum. The mucosa was carefully examined on slow withdrawal of the endoscope. The patient tolerated the procedure well. There were no immediate complications.? ? EGD Findings:? * Esophagus:? Normal mucosa noted in the entire esophagus. The Z line was at 33 cm. There was a 3 cm hiatal hernia. * Stomach:? Multiple small clean based ulcers were noted in antrum. Cold forceps biopsies were obtained. A small nodule was noted on the incisura. Cold forceps biopsies were taken. Random gastric biopsies were taken with cold forceps. * Duodenum:? A single linear erosion was noted in the second part of the duodenum. Cold forceps biopsies were taken from duodenal bulb and second portion of the duodenum to rule out celiac sprue. ? EGD Impressions:? * Normal esophagus * Antral gastritis (biopsy) * Gastric nodule (biopsy) * Hiatal hernia * Duodenal erosion in D2 (biopsy) ?? Recommendations:?? * Follow biopsy results. Our office will call or send a letter with results within 7-10 days. * Start/continue PPI therapy. * If H pylori +, patient will be prescribed eradication therapy followed by test of cure. * Avoid NSAIDs. Above has been reviewed with the patient. Relevant educational hand outs were provided at discharge. ?
[2022-05-06 12:25] VITALS: BP 100/53; PULSE 108; RESP 16; TEMP 37.2; O2SAT 94
--- NOTE | 2022-05-06 12:31 | HO.POSTANES ---
Post Anesthesia Evaluation Post Anesthesia Evaluation Vital Signs: Vital Signs Temp Pulse Resp BP Pulse Ox O2 Del Method 05/06/22 10:55 96.9 F 89 20 134/78 99 Room Air Anesthesia: Monitored Mental Status: Awake Pain Control: Satisfactory Nausea/Vomiting: None Hydration: Adequate Anesthesia-Related Issues: No Anes. Related Issues
[2022-05-06 12:40] VITALS: BP 114/78; PULSE 92; RESP 18; TEMP 36.3; O2SAT 97
--- NOTE | 2022-05-06 12:56 | HE.ANESPSPN ---
Anesthesia Pain Service Progress Note Assessment: Patient seen and evaluated during pain rounds. Pain control reported as [ ].
--- NOTE | 2022-05-06 12:56 | HO.POSTANES ---
Post Anesthesia Evaluation Post Anesthesia Evaluation Vital Signs: Vital Signs Temp Pulse Resp BP Pulse Ox O2 Del Method 05/06/22 12:40 97.4 F 92 18 114/78 97 Room Air 05/06/22 12:25 99.0 F 108 H 16 100/53 L 94 Room Air 05/06/22 10:55 96.9 F 89 20 134/78 99 Room Air Anesthesia: Monitored Mental Status: Awake Pain Control: Satisfactory Nausea/Vomiting: None Hydration: Adequate Anesthesia-Related Issues: No Anes. Related Issues
== END 2022-05-06 13:49 | disposition home or self-care (01) ==
PROVIDERS: PCP Internal Medicine; Visit Provider Internal Medicine
PROC: 0DJ08ZZ Inspection of Upper Intestinal Tract, Via Natural or Artificial Opening Endoscopic (ICD-10-PCS; CPT 43235; principal; 2022-05-06 12:00)
DX: K25.9 Gastric ulcer, unspecified as acute or chronic, without hemorrhage or perforation (principal); K29.50 Unspecified chronic gastritis without bleeding; K26.9 Duodenal ulcer, unspecified as acute or chronic, without hemorrhage or perforation; K44.9 Diaphragmatic hernia without obstruction or gangrene; K58.2 Mixed irritable bowel syndrome; K75.81 Nonalcoholic steatohepatitis (NASH); E78.5 Hyperlipidemia, unspecified; I10 Essential (primary) hypertension; E11.65 Type 2 diabetes mellitus with hyperglycemia; E11.40 Type 2 diabetes mellitus with diabetic neuropathy, unspecified; Z79.84 Long term (current) use of oral hypoglycemic drugs; Z79.899 Other long term (current) drug therapy; Z88.8 Allergy status to other drugs, medicaments and biological substances; Z98.51 Tubal ligation status
CPT/HCPCS: 43239; 82947; 88305; 88342

== ENCOUNTER 2022-07-20 11:11 | Outpatient (REF) | payer OTHER, SELFPAY ==
[2022-07-20 14:14] LABS: Estimated Average Glucose 143 mg/dL; Hemoglobin A1c % 6.6 %
[2022-07-20 15:48] LABS: Vitamin D 25-OH Total 24.6 ng/mL (>30)
[2022-07-20 16:00] LABS: Vitamin B12 209 pg/mL (200-900)
== END 2022-07-20 11:12 | disposition home or self-care (01) ==
LOC: HO.HMGCLDS 11:11
PROVIDERS: PCP Internal Medicine; Visit Provider Internal Medicine
DX: E11.40 Type 2 diabetes mellitus with diabetic neuropathy, unspecified (principal); G47.62 Sleep related leg cramps; N95.9 Unspecified menopausal and perimenopausal disorder
CPT/HCPCS: 36415; 82306; 82607; 82746; 83036

== ENCOUNTER 2022-08-30 13:14 | Emergency (ER) | payer OTHER, SELFPAY ==
--- NOTE | ~2022-08-30 | CT_ITS ---
EXAMINATION: NONCONTRAST HEAD CT NONCONTRAST CERVICAL SPINE CT INDICATION INFORMATION: Trauma COMPARISON: None TECHNIQUE: Separate noncontrast CT examinations of the head and cervical spine were performed. Coronal and sagittal images were created for each examination at the technologist workstation. This CT examination was performed using dose optimization techniques as appropriate, variously including the following: *Automated exposure control *Adjustment of mA and/or kV according to patient size (this includes techniques or standardized protocols for targeted exams where dose is matched to indication/reason for exam; i.e. extremities or head) *Use of iterative reconstruction technique DLP: 909 mGy-cm FINDINGS: HEAD: No intra or extra-axial fluid collection, hemorrhage, or mass. No ventriculomegaly. No midline shift or herniation. Basal cisterns are patent. Henderson-white matter differentiation is maintained. No territorial encephalomalacia. No significant volume loss. There is no abnormal attenuation within the brain parenchyma. Bilateral basal ganglia calcifications noted incidentally. No calvarial fracture or soft tissue abnormality. Mild mucosal thickening in the bilateral maxillary antra with small air-fluid level in the right. Paranasal sinuses and the mastoid air cells are otherwise normally aerated. CERVICAL SPINE: Alignment: Straightening of the normal cervical lordosis. No subluxation. Vertebra: No acute fracture. No prevertebral soft tissue swelling. Degenerative disc disease: No significant. Preserved intervertebral disc heights. Other findings: No cervical lymphadenopathy. Visualized major salivary glands and thyroid gland are unremarkable. Visualized lung apices are clear. CT/CT head/brain wo IV con IMPRESSION: 1. No intracranial hemorrhage or calvarial fracture. 2. No traumatic subluxation or acute cervical spine fracture.
--- NOTE | ~2022-08-30 | CT_ITS ---
EXAMINATION: NONCONTRAST HEAD CT NONCONTRAST CERVICAL SPINE CT INDICATION INFORMATION: Trauma COMPARISON: None TECHNIQUE: Separate noncontrast CT examinations of the head and cervical spine were performed. Coronal and sagittal images were created for each examination at the technologist workstation. This CT examination was performed using dose optimization techniques as appropriate, variously including the following: *Automated exposure control *Adjustment of mA and/or kV according to patient size (this includes techniques or standardized protocols for targeted exams where dose is matched to indication/reason for exam; i.e. extremities or head) *Use of iterative reconstruction technique DLP: 909 mGy-cm FINDINGS: HEAD: No intra or extra-axial fluid collection, hemorrhage, or mass. No ventriculomegaly. No midline shift or herniation. Basal cisterns are patent. Henderson-white matter differentiation is maintained. No territorial encephalomalacia. No significant volume loss. There is no abnormal attenuation within the brain parenchyma. Bilateral basal ganglia calcifications noted incidentally. No calvarial fracture or soft tissue abnormality. Mild mucosal thickening in the bilateral maxillary antra with small air-fluid level in the right. Paranasal sinuses and the mastoid air cells are otherwise normally aerated. CERVICAL SPINE: Alignment: Straightening of the normal cervical lordosis. No subluxation. Vertebra: No acute fracture. No prevertebral soft tissue swelling. Degenerative disc disease: No significant. Preserved intervertebral disc heights. Other findings: No cervical lymphadenopathy. Visualized major salivary glands and thyroid gland are unremarkable. Visualized lung apices are clear. CT/CT cervical spine wo IV con IMPRESSION: 1. No intracranial hemorrhage or calvarial fracture. 2. No traumatic subluxation or acute cervical spine fracture.
--- NOTE | ~2022-08-30 | CT_ITS ---
EXAMINATION: CT ANGIOGRAM OF THE CHEST WITH AND WITHOUT CONTRAST (CT PULMONARY ANGIOGRAM FOR PE) CLINICAL INFORMATION: Reason for Exam syncope, elevated d dimer COMPARISON: None TECHNIQUE: Prior to contrast administration, noncontrast localization images were obtained. Subsequently, multidetector volumetric imaging was performed from the thoracic inlet to below the diaphragms following the administration of 65 mL Omnipaque 350 intravenous contrast. No contrast reaction reported Sagittal, coronal, and MIP oblique sagittal reformatted images were obtained on the CT workstation, uploaded to PACS, and reviewed. This CT examination was performed using dose optimization techniques as appropriate, variously including the following: *Automated exposure control *Adjustment of mA and/or kV according to patient size (this includes techniques or standardized protocols for targeted exams where dose is matched to indication/reason for exam; i.e. extremities or head) *Use of iterative reconstruction technique Total exam dose-length product 1233 mGy-cm FINDINGS: QUALITY OF STUDY/CONTRAST BOLUS: Satisfactory. PULMONARY ARTERIES: No central or segmental pulmonary emboli. THORACIC AORTA: No aneurysm or dissection. LUNG: No focal consolidation, nodules or masses. PLEURA: No pleural effusion or pneumothorax. MEDIASTINUM: Normal heart size. No pericardial effusion. No hilar or mediastinal lymphadenopathy. No evidence of septal bowing or right heart strain. CORONARY ARTERY CALCIFICATION: None visualized on this study. CHEST WALL/AXILLA: No axillary or internal mammary lymphadenopathy. OSSEOUS STRUCTURES: No acute or suspicious osseous abnormality. UPPER ABDOMEN: Unremarkable. No reflux of contrast into the hepatic veins to suggest elevated right heart pressures. CT/CT angio chest PE protocol IMPRESSION: Unremarkable CT pulmonary arteriogram. VTE: negative
--- NOTE | 2022-08-30 13:35 | ECG_ITS ---
Test Reason : SYNCOPE Blood Pressure : / mmHG Vent. Rate : 082 BPM Atrial Rate : 082 BPM P-R Int : 186 ms QRS Dur : 080 ms QT Int : 378 ms P-R-T Axes : 051 010 042 degrees QTc Int : 441 ms Normal sinus rhythm Normal ECG No previous ECGs available Referred By: Barney Jean Electronically Signed By:ALESSIA YING MD
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
[2022-08-30 13:39] VITALS: BP 146/80; PULSE 92; RESP 16; TEMP 35.5; O2SAT 100; BMI 22.6
--- NOTE | 2022-08-30 14:30 | PC.NURSE ---
labs drawn, ekg performed, monitor car operator applied
[2022-08-30 14:33] LABS: MANUAL DIFF FLAG NO
[2022-08-30 14:38] LABS: Basophils Percent Auto 0.3 % (0-2); Eosinophils Percent Auto 0.3 % (0-4); Hematocrit 32.7 % (37.0-47.0); Hemoglobin 10.8 g/dl (12.0-16.0); Imm Gran Abs Auto 0.04 X10*3/uL (0.00-0.03); Imm Gran Pct Auto 0.5 % (0.0-0.4); Lymphocytes Absolute Auto 2.8 X10*3/uL (1.2-4.9); Lymphocytes Percent Auto 36.5 % (20-40); Mean Corpuscular Hemoglobin 31.3 pg (27.0-33.0); Mean Corpuscular Volume 94.8 fL (80.0-98.0); Mean Platelet Volume 10.4 fL (9.4-12.3); Monocytes Absolute Auto 0.6 X10*3/uL (0.1-1.2); Monocytes Percent Auto 7.9 % (2-11); Neutrophils Absolute Auto 4.1 x10*3/uL (2.0-8.3); Neutrophils Percent Auto 54.5 % (45-73); Platelet Count 306 X10*3/uL (160-400); Red Blood Count 3.45 X10*6/uL (4.20-5.50); Red Cell Distribution Width 12.4 % (11.0-16.0); White Blood Count 7.6 X10*3/uL (4.8-10.8)
[2022-08-30 14:59] LABS: Alanine Aminotransferase 15 U/L (0-31); Alkaline Phosphatase 94 U/L (39-117); Anion Gap 11 (12-20); Aspartate Amino Transferase 17 U/L (5-31); Bilirubin Total 0.2 mg/dL (0.0-1.0); Blood Urea Nitrogen 22 mg/dL (9-16); Carbon Dioxide 24 mmol/L (22-29); Chloride 111 mmol/L (96-108); Creatinine Clr Calc Pharmacy 64.9; Estimated Glomerular Filt Rate > 60; Glucose Random 226 mg/dL (60-115); Potassium 4.2 mmol/L (3.3-5.1); Sodium 142 mmol/L (135-145); Total Protein 6.9 g/dL (6.5-8.0)
[2022-08-30] MEDS: Ketorolac Tromethamine 30 MG/ML VIAL IM (14:59)
[2022-08-30 15:02] LABS: D Dimer High Sensitivity 394 NG/ML
--- NOTE | 2022-08-30 15:02 | PC.NURSE ---
patient a&ox3, monitoring manager nsr, pt medicated for pain, family at bedside, will continue to monitor
[2022-08-30 15:14] LABS: Troponin-I High Sensitivity < 3.5 ng/L (<3.5-17.0)
[2022-08-30] MEDS: iohexoL 350 MG/ML 100 ML INFUS..BTL IV (15:44)
[2022-08-30 15:55] VITALS: BP 132/71; PULSE 76; RESP 15; TEMP 36.6; O2SAT 100
[2022-08-30 16:59] VITALS: BP 134/71; PULSE 82; RESP 18; O2SAT 99
== END 2022-08-30 17:16 | disposition home or self-care (01) ==
PROVIDERS: Emergency Provider Emergency Medicine; PCP Internal Medicine
DX: R55 Syncope and collapse (principal); S20.219A Contusion of unspecified front wall of thorax, initial encounter; V47.5XXA Car driver injured in collision with fixed or stationary object in traffic accident, initial encounter; R53.83 Other fatigue; R51.9 Headache, unspecified; M54.2 Cervicalgia; Y93.89 Activity, other specified; Y92.414 Local residential or business street as the place of occurrence of the external cause; Y99.9 Unspecified external cause status; Z79.899 Other long term (current) drug therapy; Z79.84 Long term (current) use of oral hypoglycemic drugs; Z79.02 Long term (current) use of antithrombotics/antiplatelets
CPT/HCPCS: 36415; 70450; 71275; 72125; 80053; 84484; 85025; 85379; 93005; 96372; 99285; J1885; Q9967

== ENCOUNTER → 2022-09-01 13:51 | Outpatient (BNVA) | payer OTHER, SELFPAY | PROVIDERS: PCP Internal Medicine; Visit Provider Nurse Practitioner | DX: K21.9 Gastro-esophageal reflux disease without esophagitis (principal); K26.9 Duodenal ulcer, unspecified as acute or chronic, without hemorrhage or perforation; R11.2 Nausea with vomiting, unspecified | CPT/HCPCS: 99212 ==

== ENCOUNTER → 2022-09-15 13:47 | Outpatient (BNVA) | payer OTHER, SELFPAY | PROVIDERS: PCP Internal Medicine; Visit Provider Anesthesiology | DX: M54.16 Radiculopathy, lumbar region (principal); M51.36 Other intervertebral disc degeneration, lumbar region | CPT/HCPCS: 99212 ==

== ENCOUNTER 2022-09-18 08:15 | Outpatient (REF) | payer OTHER, SELFPAY ==
[2022-09-18 12:13] LABS: Estimated Average Glucose 157 mg/dL; Hemoglobin A1c % 7.1 %
[2022-09-18 13:09] LABS: Creatinine Urine 140.99 mg/dL; Microalbum/Creatinine Ratio Ur 7.8 ug/mg cr
[2022-09-18 13:21] LABS: Alanine Aminotransferase 17 U/L (0-31); Anion Gap 12 (12-20); Aspartate Amino Transferase 17 U/L (5-31); Blood Urea Nitrogen 17 mg/dL (9-16); Calcium 9.6 mg/dL (8.4-10.2); Carbon Dioxide 25 mmol/L (22-29); Chloride 109 mmol/L (96-108); Cholesterol 179 mg/dL; Estimated Glomerular Filt Rate > 60; Glucose Fasting 127 mg/dL (60-99); HDL Cholesterol 53 mg/dL; Iron 101 mcg/dL (30-160); LDL Cholesterol Calculated 108 mg/dl; Percent Iron Saturation 31 % (15-50); Potassium 4.7 mmol/L (3.3-5.1); Sodium 141 mmol/L (135-145); TSH reflex Free T4 0.57 uIU/mL (0.32-4.0); Total Iron Binding Capacity 322 mcg/dL (228-428); Triglycerides 90 mg/dL; Unsaturated Iron Binding 221 ug/dL; Vitamin D 25-OH Total 22.1 ng/mL (>30)
== END 2022-09-18 08:16 | disposition home or self-care (01) ==
LOC: HO.HMGCLDS 08:15
PROVIDERS: PCP Internal Medicine; Visit Provider Internal Medicine
DX: E11.40 Type 2 diabetes mellitus with diabetic neuropathy, unspecified (principal); K26.9 Duodenal ulcer, unspecified as acute or chronic, without hemorrhage or perforation; E78.5 Hyperlipidemia, unspecified; K21.9 Gastro-esophageal reflux disease without esophagitis; D64.9 Anemia, unspecified; R53.83 Other fatigue
CPT/HCPCS: 36415; 80048; 80061; 82043; 82306; 83036; 83540; 84443; 84450; 84460

== ENCOUNTER 2022-11-16 13:14 | Outpatient (REF) | payer OTHER, SELFPAY ==
[2022-11-16 17:59] LABS: CT PCR NOT DETECTED (Not Detect.); NG PCR NOT DETECTED (Not Detect.)
[2022-11-17 09:58] LABS: BV Int Neg Control Negative (Negative); BV Int Pos Control Positive (Positive)
== END 2022-11-16 13:15 | disposition home or self-care (01) ==
LOC: HO.LAB 13:14
PROVIDERS: PCP Internal Medicine; Visit Provider Advanced Practice Midwife
DX: K58.0 Irritable bowel syndrome with diarrhea (principal); K21.9 Gastro-esophageal reflux disease without esophagitis; K30 Functional dyspepsia; R11.2 Nausea with vomiting, unspecified; N89.8 Other specified noninflammatory disorders of vagina; Z20.2 Contact with and (suspected) exposure to infections with a predominantly sexual mode of transmission
CPT/HCPCS: 0353U; 87480; 87510; 87660; 99212

== ENCOUNTER 2022-11-16 13:55 | Outpatient (REF) | payer OTHER, SELFPAY | END 2022-11-16 13:56 | disposition home or self-care (01) | LOC: HO.LNP 13:55 | PROVIDERS: Visit Provider Advanced Practice Midwife | DX: Z13.89 Encounter for screening for other disorder (principal) ==

== ENCOUNTER 2022-12-30 12:05 | Outpatient (REF) | payer OTHER, SELFPAY ==
--- NOTE | ~2022-12-30 | MM_ITS ---
EXAMINATION: MM SCREENING DIGITAL BREAST TOMOSYNTHESIS, BILATERAL CLINICAL INFORMATION: Screening. Asymptomatic. The lifetime risk of breast cancer based on the Tyrer-Cuzick Model is 8%. COMPARISON: Mammography: 08/21/2021, 06/16/2020; outside exam 05/08/2019 ([facility]) TECHNIQUE: Digital breast tomosynthesis is performed in both the craniocaudal and mediolateral oblique views along with computer-aided detection (CAD). Synthesized 2D images are generated from the tomosynthesis. FINDINGS: The breasts are heterogeneously dense, which may obscure small masses (ACR BI-RADS breast composition Category c). There are no significant masses, abnormal calcifications, or other abnormalities. Parenchymal pattern is similar to prior studies. There is no developing density or architectural abnormality. There is an intramammary node posterior upper outer right breast similar to prior studies. There are scattered bilateral punctate round and vascular calcifications again seen in each breast. The axilla and skin contours are unremarkable. No significant changes from prior studies. MM/MM tomosynthesis screening BI IMPRESSION: No mammographic evidence of malignancy. ASSESSMENT: BI-RADS 2: Benign RECOMMENDATION: Routine annual mammography screening. This patient's information was entered into a reminder system with a target due date for their next mammogram.
== END 2022-12-30 12:06 | disposition home or self-care (01) ==
LOC: HO.MAMMO 12:05
PROVIDERS: PCP Internal Medicine; Visit Provider Internal Medicine
DX: Z12.31 Encounter for screening mammogram for malignant neoplasm of breast (principal)
CPT/HCPCS: 77063; 77067

== ENCOUNTER 2023-01-17 06:00 | Outpatient (REF) | payer OTHER, SELFPAY ==
[2023-01-17 06:10] LABS: MANUAL DIFF FLAG NO
[2023-01-17 07:26] LABS: Basophils Percent Auto 0.4 % (0-2); Eosinophils Absolute Auto 0.1 X10*3/uL (0.0-0.4); Eosinophils Percent Auto 0.7 % (0-4); Hematocrit 34.3 % (37.0-47.0); Hemoglobin 11.3 g/dl (12.0-16.0); Imm Gran Abs Auto 0.02 X10*3/uL (0.00-0.03); Imm Gran Pct Auto 0.3 % (0.0-0.4); Lymphocytes Absolute Auto 3.1 X10*3/uL (1.2-4.9); Lymphocytes Percent Auto 41.9 % (20-40); Mean Corpuscular HGB Conc 32.9 g/dl (31.0-35.0); Mean Corpuscular Volume 94.2 fL (80.0-98.0); Mean Platelet Volume 11.3 fL (9.4-12.3); Monocytes Absolute Auto 0.7 X10*3/uL (0.1-1.2); Monocytes Percent Auto 9.9 % (2-11); Neutrophils Absolute Auto 3.4 x10*3/uL (2.0-8.3); Neutrophils Percent Auto 46.8 % (45-73); Platelet Count 298 X10*3/uL (160-400); Red Blood Count 3.64 X10*6/uL (4.20-5.50); Red Cell Distribution Width 12.6 % (11.0-16.0); White Blood Count 7.4 X10*3/uL (4.8-10.8)
[2023-01-17 08:03] LABS: Estimated Average Glucose 140 mg/dL; Hemoglobin A1c % 6.5 %
[2023-01-17 08:16] LABS: Alanine Aminotransferase 20 U/L (0-31); Anion Gap 13 (12-20); Aspartate Amino Transferase 18 U/L (5-31); Blood Urea Nitrogen 24 mg/dL (9-16); Calcium 9.7 mg/dL (8.4-10.2); Carbon Dioxide 23 mmol/L (22-29); Chloride 110 mmol/L (96-108); Cholesterol 161 mg/dL; Estimated Glomerular Filt Rate > 60; Glucose Fasting 115 mg/dL (60-99); HDL Cholesterol 49 mg/dL; LDL Cholesterol Calculated 94 mg/dl; Potassium 3.8 mmol/L (3.3-5.1); Sodium 142 mmol/L (135-145); Triglycerides 93 mg/dL
[2023-01-17 08:21] LABS: Vitamin D 25-OH Total 52.3 ng/mL (>30)
== END 2023-01-17 06:01 | disposition home or self-care (01) ==
LOC: HO.LAB 06:00
PROVIDERS: PCP Internal Medicine; Visit Provider Internal Medicine
DX: D64.9 Anemia, unspecified (principal); E11.40 Type 2 diabetes mellitus with diabetic neuropathy, unspecified; E55.9 Vitamin D deficiency, unspecified; E78.5 Hyperlipidemia, unspecified
CPT/HCPCS: 36415; 80048; 80061; 82306; 83036; 84450; 84460; 85025

== ENCOUNTER 2023-05-04 08:45 | Outpatient (REF) | payer OTHER, SELFPAY ==
[2023-05-04 10:12] LABS: MANUAL DIFF FLAG NO
[2023-05-04 10:47] LABS: Basophils Percent Auto 0.4 % (0-2); Eosinophils Percent Auto 0.4 % (0-4); Hematocrit 36.6 % (37.0-47.0); Hemoglobin 11.9 g/dl (12.0-16.0); Imm Gran Abs Auto 0.02 X10*3/uL (0.00-0.03); Imm Gran Pct Auto 0.3 % (0.0-0.4); Lymphocytes Percent Auto 40.2 % (20-40); Mean Corpuscular HGB Conc 32.5 g/dl (31.0-35.0); Mean Corpuscular Hemoglobin 30.9 pg (27.0-33.0); Mean Corpuscular Volume 95.1 fL (80.0-98.0); Mean Platelet Volume 11.1 fL (9.4-12.3); Monocytes Absolute Auto 0.6 X10*3/uL (0.1-1.2); Monocytes Percent Auto 7.6 % (2-11); Neutrophils Absolute Auto 3.8 x10*3/uL (2.0-8.3); Neutrophils Percent Auto 51.1 % (45-73); Platelet Count 334 X10*3/uL (160-400); Red Blood Count 3.85 X10*6/uL (4.20-5.50); Red Cell Distribution Width 12.5 % (11.0-16.0); White Blood Count 7.4 X10*3/uL (4.8-10.8)
== END 2023-05-04 08:46 | disposition home or self-care (01) ==
LOC: HO.LAB 08:45
PROVIDERS: PCP Internal Medicine; Visit Provider Nurse Practitioner
DX: K92.1 Melena (principal); K58.0 Irritable bowel syndrome with diarrhea; K26.9 Duodenal ulcer, unspecified as acute or chronic, without hemorrhage or perforation; K21.9 Gastro-esophageal reflux disease without esophagitis; K75.81 Nonalcoholic steatohepatitis (NASH); K30 Functional dyspepsia; D64.9 Anemia, unspecified; L02.91 Cutaneous abscess, unspecified; Z79.899 Other long term (current) drug therapy
CPT/HCPCS: 36415; 82728; 85025; 86140; 99212

== ENCOUNTER 2023-05-04 08:45 | Outpatient (AMB) | payer OTHER, SELFPAY ==
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
[2023-05-04 08:48] VITALS: BP 110/65; PULSE 91; BMI 24.5
== END 2023-05-04 09:38 | disposition home or self-care (01) ==
PROVIDERS: PCP Internal Medicine; Visit Provider Nurse Practitioner
DX: K58.0 Irritable bowel syndrome with diarrhea (principal); K92.1 Melena; K26.9 Duodenal ulcer, unspecified as acute or chronic, without hemorrhage or perforation; K21.9 Gastro-esophageal reflux disease without esophagitis; K75.81 Nonalcoholic steatohepatitis (NASH); K30 Functional dyspepsia; D64.9 Anemia, unspecified; L02.91 Cutaneous abscess, unspecified
CPT/HCPCS: 99214

== ENCOUNTER 2023-05-05 10:04 | Outpatient (REF) | payer OTHER, SELFPAY ==
[2023-05-05 12:17] LABS: CDiff Gene PCR NEGATIVE (Negative)
[2023-05-05 13:17] LABS: Adenovirus F 40/41 Not Detected (Not Detect.); Astrovirus Not Detected (Not Detect.); Campylobacter Not Detected (Not Detect.); Cryptosporidium Not Detected (Not Detect.); Cyclospora cayetanensis Not Detected (Not Detect.); E. coli EAEC Not Detected (Not Detect.); E. coli EPEC Not Detected (Not Detect.); E. coli ETEC Not Detected (Not Detect.); E. coli STEC Not Detected (Not Detect.); Entamoeba histolytica Not Detected (Not Detect.); Giardia lamblia Not Detected (Not Detect.); Norovirus GI/GII Not Detected (Not Detect.); Plesiomonas shigelloides Not Detected (Not Detect.); Rotavirus A Not Detected (Not Detect.); Salmonella Not Detected (Not Detect.); Sapovirus Not Detected (Not Detect.); Shigella sp./EIEC Not Detected (Not Detect.); Vibrio Not Detected (Not Detect.); Vibrio Cholerae Not Detected (Not Detect.); Yersinia enterocolitica Not Detected (Not Detect.)
== END 2023-05-05 10:05 | disposition home or self-care (01) ==
LOC: HO.LNP 10:04
PROVIDERS: Visit Provider Nurse Practitioner
DX: K92.1 Melena (principal); D64.9 Anemia, unspecified
CPT/HCPCS: 87493; 87507

== ENCOUNTER 2023-05-12 09:40 | Outpatient (REF) | payer OTHER, SELFPAY ==
--- NOTE | ~2023-05-12 | US_ITS ---
EXAMINATION: US ABDOMEN COMPLETE CLINICAL INFORMATION: Melanoma, anemia. COMPARISON: Abdominal ultrasound 12/15/2021 TECHNIQUE: Real-time imaging of the abdominal viscera. FINDINGS: PANCREAS: Normal head and body, the tail is obscured by bowel gas. ABDOMINAL AORTA: The proximal, mid, and distal segments are normal in caliber. INFERIOR VENA CAVA: Visualized portions are normal. LIVER: The liver is normal in size. The liver contour is normal. There is diffuse increased liver parenchymal echogenicity, consistent with hepatic steatosis. No focal hepatic lesion. There is no intrahepatic biliary duct dilatation seen. GALLBLADDER: Normal. The gallbladder is physiologically distended without evidence of stones, sludge, polyps, wall thickening or pericholecystic fluid. COMMON BILE DUCT: Normal in caliber measuring 0.3 cm in diameter. RIGHT KIDNEY: Normal. No hydronephrosis. No renal calculi or focal parenchymal lesions. The kidney measures 10.8 cm in maximum dimension. LEFT KIDNEY: Normal. No hydronephrosis. No renal calculi or focal parenchymal lesions. The kidney measures 9.8 cm in maximum dimension. SPLEEN: Normal. The spleen measures 7.6 cm in maximum dimension. FREE FLUID: None. US/US abdomen complete IMPRESSION: Mild hepatic steatosis. No focal lesion.
== END 2023-05-12 09:41 | disposition home or self-care (01) ==
LOC: HO.HMGCX 09:40
PROVIDERS: PCP Internal Medicine; Visit Provider Nurse Practitioner
DX: K92.1 Melena (principal); D64.9 Anemia, unspecified
CPT/HCPCS: 76700

== ENCOUNTER 2023-05-19 15:24 | Outpatient (AMB) | payer OTHER, SELFPAY ==
[2023-05-19 15:59] VITALS: BP 100/62; PULSE 89; O2SAT 99; BMI 24.3
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
== END 2023-05-19 17:29 | disposition home or self-care (01) ==
PROVIDERS: PCP Internal Medicine; Visit Provider Internal Medicine
DX: Z23 Encounter for immunization (principal); E11.40 Type 2 diabetes mellitus with diabetic neuropathy, unspecified
CPT/HCPCS: 83036; 90471; 90686; 99214

== ENCOUNTER 2023-06-23 09:24 | Outpatient (AMB) | payer OTHER, SELFPAY ==
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
[2023-06-23 11:33] VITALS: BP 122/70; PULSE 77; TEMP 36.5; O2SAT 99; BMI 24.3
== END 2023-06-23 12:26 | disposition home or self-care (01) ==
PROVIDERS: PCP Internal Medicine; Visit Provider Physician Assistant
DX: R19.7 Diarrhea, unspecified (principal)
CPT/HCPCS: 81003; 99213

== ENCOUNTER 2023-06-30 08:24 | Emergency (ER) | payer OTHER, SELFPAY ==
--- NOTE | ~2023-06-30 | CT_ITS ---
EXAMINATION: CT ABDOMEN AND PELVIS WITH CONTRAST CLINICAL INFORMATION: Left lower quadrant tenderness. COMPARISON: None available. TECHNIQUE: Multidetector volumetric images were obtained from the superior aspect of the liver through the pubic symphysis following administration 85 mL of Omnipaque 350 intravenous contrast. Sagittal and coronal reformatted images were obtained on the technologist's workstation. Oral contrast: No This CT examination was performed using dose optimization techniques as appropriate, variously including the following: *Automated exposure control *Adjustment of mA and/or kV according to patient size (this includes techniques or standardized protocols for targeted exams where dose is matched to indication/reason for exam; i.e. extremities or head) *Use of iterative reconstruction technique DLP: 354 mGy-cm FINDINGS: LUNG BASES: The lung bases are clear. The heart size is normal. LIVER, GALLBLADDER, AND BILIARY TREE: The liver is normal in size, shape, and attenuation. No focal hepatic lesion or biliary ductal dilatation is present. The gallbladder is unremarkable with no evidence of radiopaque gallstones, gallbladder wall thickening, or obvious pericholecystic inflammatory changes. PANCREAS: Unremarkable. SPLEEN: Unremarkable. ADRENAL GLANDS: Unremarkable. KIDNEYS AND URETERS: The kidneys are normal in size, shape, and attenuation. No hydronephrosis, hydroureter, or calculi seen. No perinephric stranding. BLADDER: Unremarkable. GASTROINTESTINAL TRACT: There is scattered stool and gas seen throughout the colon without significant distention. The small bowel loops are normal caliber. Appendix is normal caliber. There is no free air or free fluid. No inflammatory process seen.. ABDOMINAL WALL: No significant hernia is appreciated. LYMPH NODES: Normal. VASCULAR: Unremarkable. PELVIC VISCERA: The uterus is retroverted. There is no adnexal mass. No acute abnormal pelvic or inguinal lymph nodes. OSSEOUS STRUCTURES: Mild degenerative disc changes L5-S1 disc level with vacuum disc phenomena and spondylosis. No aggressive lytic or sclerotic process seen. CT/CT abdomen pelvis w IV con IMPRESSION: No acute intra-abdominal process seen. Fleischner guidelines were followed.
[2023-06-30 08:38] VITALS: BP 113/77; PULSE 84; RESP 18; TEMP 36.3; O2SAT 99; BMI 22.7
[2023-06-30 08:58] LABS: MANUAL DIFF FLAG NO
[2023-06-30 09:00] LABS: Basophils Percent Auto 0.4 % (0-2); Eosinophils Percent Auto 0.2 % (0-4); Hematocrit 38.8 % (37.0-47.0); Hemoglobin 12.9 g/dl (12.0-16.0); Imm Gran Abs Auto 0.03 X10*3/uL (0.00-0.03); Imm Gran Pct Auto 0.3 % (0.0-0.4); Lymphocytes Absolute Auto 3.5 X10*3/uL (1.2-4.9); Mean Corpuscular HGB Conc 33.2 g/dl (31.0-35.0); Mean Corpuscular Hemoglobin 31.6 pg (27.0-33.0); Mean Corpuscular Volume 95.1 fL (80.0-98.0); Mean Platelet Volume 10.5 fL (9.4-12.3); Monocytes Absolute Auto 0.7 X10*3/uL (0.1-1.2); Monocytes Percent Auto 7.6 % (2-11); Neutrophils Absolute Auto 5.1 x10*3/uL (2.0-8.3); Neutrophils Percent Auto 54.5 % (45-73); Platelet Count 311 X10*3/uL (160-400); Red Blood Count 4.08 X10*6/uL (4.20-5.50); Red Cell Distribution Width 12.6 % (11.0-16.0); White Blood Count 9.3 X10*3/uL (4.8-10.8)
[2023-06-30 09:02] LABS: Appearance Urine Clear; Color Urine Dark Yellow; Glucose Urine UA Negative (Negative); Leukocyte Esterase Urine Negative (Negative); Nitrite Urine Negative (Negative); PH 5.5 (5.0-9.0); Specific Gravity - Urine >= 1.030 (1.005-1.025); Urine Blood Negative (Negative); Urine Ketones Trace mg/dL (Negative); Urine Protein Trace mg/dL (Neg-Trace)
[2023-06-30 09:18] LABS: Alanine Aminotransferase 25 U/L (0-31); Albumin Level 4.3 g/dL (3.5-5.0); Alkaline Phosphatase 98 U/L (39-117); Anion Gap 11 (12-20); Aspartate Amino Transferase 24 U/L (5-31); Bilirubin Direct 0.2 mg/dL (0.0-0.5); Bilirubin Total 0.7 mg/dL (0.0-1.0); Blood Urea Nitrogen 19 mg/dL (9-16); Calcium 9.6 mg/dL (8.4-10.2); Carbon Dioxide 25 mmol/L (22-29); Chloride 111 mmol/L (96-108); Creatinine Clr Calc Pharmacy 58.2; Estimated Glomerular Filt Rate > 60; Glucose Random 120 mg/dL (60-115); Lipase 24 U/L (8-78); Potassium 4.2 mmol/L (3.3-5.1); Sodium 143 mmol/L (135-145); Total Protein 7.8 g/dL (6.5-8.0)
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
[2023-06-30 19:13] VITALS: BP 114/71; PULSE 82; RESP 17; TEMP 37; O2SAT 97
[2023-06-30 19:22] LABS: Magnesium 1.9 mg/dL (1.6-2.6)
[2023-06-30] MEDS: iohexoL 350 MG/ML 100 ML INFUS..BTL 85 ML IV (19:51)
[2023-06-30] MEDS: 0.9 % Sodium Chloride 1,000 ML 999 ML IV (19:52)
[2023-06-30 23:04] VITALS: BP 107/74; PULSE 81; RESP 17; TEMP 36.8; O2SAT 98
== END 2023-06-30 23:30 | disposition home or self-care (01) ==
PROVIDERS: Registered Nurse Emergency; Emergency Provider Student in an Organized Health Care Education/Training Program; PCP Internal Medicine
DX: R19.7 Diarrhea, unspecified (principal); R10.32 Left lower quadrant pain; E11.9 Type 2 diabetes mellitus without complications; E78.5 Hyperlipidemia, unspecified; K75.81 Nonalcoholic steatohepatitis (NASH); Z79.84 Long term (current) use of oral hypoglycemic drugs; Z79.02 Long term (current) use of antithrombotics/antiplatelets; Z79.899 Other long term (current) drug therapy
CPT/HCPCS: 36415; 74177; 80048; 80076; 81003; 83690; 83735; 85025; 99284; Q9967

== ENCOUNTER 2023-09-19 07:30 | Outpatient (REF) | payer OTHER, SELFPAY ==
[2023-09-19 11:46] LABS: Basophils Percent Auto 0.4 % (0-2); Eosinophils Percent Auto 0.3 % (0-4); Hematocrit 35.3 % (37.0-47.0); Hemoglobin 11.7 g/dl (12.0-16.0); Imm Gran Abs Auto 0.02 X10*3/uL (0.00-0.03); Imm Gran Pct Auto 0.3 % (0.0-0.4); Lymphocytes Absolute Auto 2.8 X10*3/uL (1.2-4.9); Lymphocytes Percent Auto 35.5 % (20-40); MANUAL DIFF FLAG NO; Mean Corpuscular HGB Conc 33.1 g/dl (31.0-35.0); Mean Corpuscular Volume 93.6 fL (80.0-98.0); Monocytes Absolute Auto 0.7 X10*3/uL (0.1-1.2); Monocytes Percent Auto 8.4 % (2-11); Neutrophils Absolute Auto 4.4 x10*3/uL (2.0-8.3); Neutrophils Percent Auto 55.1 % (45-73); Platelet Count 314 X10*3/uL (160-400); Red Blood Count 3.77 X10*6/uL (4.20-5.50); Red Cell Distribution Width 12.5 % (11.0-16.0); White Blood Count 7.9 X10*3/uL (4.8-10.8)
[2023-09-19 11:56] LABS: Estimated Average Glucose 140 mg/dL; Hemoglobin A1c % 6.5 % (<6.0)
[2023-09-19 12:20] LABS: Alanine Aminotransferase 11 U/L (0-31); Anion Gap 12 (12-20); Aspartate Amino Transferase 16 U/L (5-31); Blood Urea Nitrogen 21 mg/dL (9-16); Calcium 10.1 mg/dL (8.4-10.2); Carbon Dioxide 24 mmol/L (22-29); Chloride 111 mmol/L (96-108); Cholesterol 153 mg/dL (<200); Estimated Glomerular Filt Rate > 60; Glucose Fasting 118 mg/dL (60-99); HDL Cholesterol 50 mg/dL (>40); Iron 63 mcg/dL (30-160); LDL Cholesterol Calculated 88 mg/dL (<100); Percent Iron Saturation 22 % (15-50); Potassium 4.2 mmol/L (3.3-5.1); Sodium 143 mmol/L (135-145); Total Iron Binding Capacity 281 mcg/dL (228-428); Triglycerides 78 mg/dL (<150); Unsaturated Iron Binding 218 ug/dL
[2023-09-19 12:26] LABS: Vitamin D 25-OH Total 45.8 ng/mL (>30)
[2023-09-19 13:04] LABS: Creatinine Urine 203.56 mg/dL; Microalbum/Creatinine Ratio Ur 6.8 ug/mg cr (<30)
== END 2023-09-19 07:31 | disposition home or self-care (01) ==
LOC: HO.HMGCLDS 07:30
PROVIDERS: PCP Internal Medicine; Visit Provider Internal Medicine
DX: E11.40 Type 2 diabetes mellitus with diabetic neuropathy, unspecified (principal); E78.5 Hyperlipidemia, unspecified; E55.9 Vitamin D deficiency, unspecified; D64.9 Anemia, unspecified; K75.81 Nonalcoholic steatohepatitis (NASH); Z78.0 Asymptomatic menopausal state
CPT/HCPCS: 36415; 80048; 80061; 82043; 82306; 82570; 83036; 83540; 84450; 84460; 85025

== ENCOUNTER 2023-09-22 14:40 | Outpatient (AMB) | payer OTHER, SELFPAY ==
[2023-09-22 14:41] VITALS: BP 128/80; PULSE 99; O2SAT 99; BMI 22.9
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
== END 2023-09-22 15:19 | disposition home or self-care (01) ==
PROVIDERS: PCP Internal Medicine; Visit Provider Internal Medicine
DX: E11.9 Type 2 diabetes mellitus without complications (principal); E78.5 Hyperlipidemia, unspecified
CPT/HCPCS: 99213

== ENCOUNTER 2023-09-27 15:34 | Outpatient (AMB) | payer OTHER, SELFPAY ==
[2023-09-27 15:36] VITALS: BP 129/71; PULSE 94; BMI 23.2
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
== END 2023-09-27 16:21 | disposition home or self-care (01) ==
PROVIDERS: PCP Internal Medicine; Visit Provider Nurse Practitioner
DX: K58.0 Irritable bowel syndrome with diarrhea (principal); K21.9 Gastro-esophageal reflux disease without esophagitis; K75.81 Nonalcoholic steatohepatitis (NASH)
CPT/HCPCS: 99214

== ENCOUNTER → 2023-09-27 15:34 | Outpatient (BNVA) | payer OTHER, SELFPAY | PROVIDERS: PCP Internal Medicine; Visit Provider Nurse Practitioner | DX: K58.0 Irritable bowel syndrome with diarrhea (principal); K21.9 Gastro-esophageal reflux disease without esophagitis; K75.81 Nonalcoholic steatohepatitis (NASH) | CPT/HCPCS: 99212 ==

== ENCOUNTER 2023-11-23 14:29 | Outpatient (AMB) | payer OTHER, SELFPAY ==
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
[2023-11-23 14:34] VITALS: BP 90/60
== END 2023-11-23 15:33 | disposition home or self-care (01) ==
PROVIDERS: Visit Provider Advanced Practice Midwife
DX: Z01.419 Encounter for gynecological examination (general) (routine) without abnormal findings (principal)
CPT/HCPCS: 99396

== ENCOUNTER → 2023-11-23 14:29 | Outpatient (BNVA) | payer OTHER, SELFPAY | PROVIDERS: Visit Provider Advanced Practice Midwife | DX: Z01.419 Encounter for gynecological examination (general) (routine) without abnormal findings (principal) | CPT/HCPCS: 99396 ==

== ENCOUNTER 2023-12-08 15:05 | Outpatient (AMB) | payer OTHER, SELFPAY ==
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
[2023-12-08 16:19] VITALS: BP 110/74; PULSE 85; O2SAT 99; BMI 23.6
== END 2023-12-08 17:01 | disposition home or self-care (01) ==
PROVIDERS: PCP Internal Medicine; Visit Provider Internal Medicine
DX: E11.40 Type 2 diabetes mellitus with diabetic neuropathy, unspecified (principal); E55.9 Vitamin D deficiency, unspecified; D64.9 Anemia, unspecified; E78.5 Hyperlipidemia, unspecified; K75.81 Nonalcoholic steatohepatitis (NASH); M21.612 Bunion of left foot; G47.62 Sleep related leg cramps
CPT/HCPCS: 99214

== ENCOUNTER 2023-12-09 08:13 | Outpatient (REF) | payer OTHER, SELFPAY ==
[2023-12-09 10:26] LABS: MANUAL DIFF FLAG NO
[2023-12-09 10:40] LABS: Basophils Percent Auto 0.6 % (0-2); Eosinophils Percent Auto 0.5 % (0-4); Hematocrit 34.7 % (37.0-47.0); Hemoglobin 11.3 g/dl (12.0-16.0); Imm Gran Abs Auto 0.01 X10*3/uL (0.00-0.03); Imm Gran Pct Auto 0.2 % (0.0-0.4); Lymphocytes Absolute Auto 2.4 X10*3/uL (1.2-4.9); Lymphocytes Percent Auto 38.1 % (20-40); Mean Corpuscular HGB Conc 32.6 g/dl (31.0-35.0); Mean Corpuscular Volume 95.3 fL (80.0-98.0); Mean Platelet Volume 11.1 fL (9.4-12.3); Monocytes Absolute Auto 0.5 X10*3/uL (0.1-1.2); Monocytes Percent Auto 7.6 % (2-11); Neutrophils Absolute Auto 3.3 x10*3/uL (2.0-8.3); Platelet Count 316 X10*3/uL (160-400); Red Blood Count 3.64 X10*6/uL (4.20-5.50); Red Cell Distribution Width 12.5 % (11.0-16.0); White Blood Count 6.2 X10*3/uL (4.8-10.8)
[2023-12-09 10:55] LABS: Estimated Average Glucose 157 mg/dL; Hemoglobin A1C 152.4603 umol/L; Hemoglobin A1c % 7.1 % (<6.0)
[2023-12-09 11:14] LABS: Alanine Aminotransferase 13 U/L (0-31); Anion Gap 14 (12-20); Aspartate Amino Transferase 18 U/L (5-31); Blood Urea Nitrogen 17 mg/dL (9-16); Calcium 9.2 mg/dL (8.4-10.2); Carbon Dioxide 22 mmol/L (22-29); Chloride 110 mmol/L (96-108); Cholesterol 144 mg/dL (<200); Estimated Glomerular Filt Rate > 60; Glucose Fasting 121 mg/dL (60-99); HDL Cholesterol 50 mg/dL (>40); Iron 82 mcg/dL (30-160); LDL Cholesterol Calculated 79 mg/dL (<100); Magnesium 1.6 mg/dL (1.6-2.6); Percent Iron Saturation 27 % (15-50); Potassium 3.7 mmol/L (3.3-5.1); Sodium 142 mmol/L (135-145); Total Iron Binding Capacity 306 mcg/dL (228-428); Triglycerides 79 mg/dL (<150); Unsaturated Iron Binding 224 ug/dL
[2023-12-09 11:31] LABS: Vitamin D 25-OH Total 50.8 ng/mL (>30)
[2023-12-09 11:33] LABS: Creatinine Urine 157.54 mg/dL; Microalbum/Creatinine Ratio Ur 4.4 ug/mg cr (<30)
== END 2023-12-09 08:14 | disposition home or self-care (01) ==
LOC: HO.HMGCLDS 08:13
PROVIDERS: PCP Internal Medicine; Visit Provider Internal Medicine
DX: E78.5 Hyperlipidemia, unspecified (principal); E11.40 Type 2 diabetes mellitus with diabetic neuropathy, unspecified; E55.9 Vitamin D deficiency, unspecified; D64.9 Anemia, unspecified; K75.81 Nonalcoholic steatohepatitis (NASH); E08.65 Diabetes mellitus due to underlying condition with hyperglycemia; Z78.0 Asymptomatic menopausal state
CPT/HCPCS: 36415; 80048; 80061; 82043; 82306; 82570; 83036; 83540; 83735; 84450; 84460; 85025

== ENCOUNTER 2023-12-12 13:53 | Outpatient (AMB) | payer OTHER, SELFPAY ==
[2023-12-12 15:15] VITALS: BP 110/70; PULSE 80; TEMP 36.6; O2SAT 99; BMI 23.6
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
== END 2023-12-12 16:07 | disposition home or self-care (01) ==
PROVIDERS: PCP Internal Medicine; Visit Provider Internal Medicine
DX: J06.9 Acute upper respiratory infection, unspecified (principal)
CPT/HCPCS: 99213

== ENCOUNTER 2023-12-29 13:54 | Outpatient (AMB) | payer OTHER, SELFPAY ==
[2023-12-29 14:52] VITALS: BP 108/72; PULSE 87; TEMP 36.8; O2SAT 97; BMI 23.4
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
== END 2023-12-29 16:08 | disposition home or self-care (01) ==
PROVIDERS: PCP Internal Medicine; Visit Provider Nurse Practitioner Family
DX: R05.9 Cough, unspecified (principal)
CPT/HCPCS: 99213

== ENCOUNTER 2024-02-07 10:10 | Outpatient (AMB) | payer OTHER, SELFPAY ==
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
[2024-02-07 10:26] VITALS: BP 112/74; PULSE 86; O2SAT 96; BMI 23.7
== END 2024-02-07 11:12 | disposition home or self-care (01) ==
PROVIDERS: PCP Internal Medicine; Visit Provider Internal Medicine
DX: Z00.01 Encounter for general adult medical examination with abnormal findings (principal); L02.32 Furuncle of buttock; E11.40 Type 2 diabetes mellitus with diabetic neuropathy, unspecified; D64.9 Anemia, unspecified; K58.0 Irritable bowel syndrome with diarrhea; K21.9 Gastro-esophageal reflux disease without esophagitis; E78.5 Hyperlipidemia, unspecified
CPT/HCPCS: 99214; 99396

== ENCOUNTER 2024-02-15 11:12 | Outpatient (REF) | payer OTHER, SELFPAY ==
--- NOTE | ~2024-02-15 | XR_ITS ---
EXAMINATION: XR ABDOMEN COMPLETE CLINICAL INDICATION: Right-sided abdominal pain for 2 days. COMPARISON: Selected images of the abdomen and pelvic CT scan of 06/30/2023, 07/31/2021, lumbar spine x-rays of 08/04/2016. TECHNIQUE: 2 views of the abdomen. FINDINGS: The bowel gas pattern is normal without evidence of ileus or obstruction. Moderate stool burden in the colon. Visualized lung bases are unremarkable. No radiopaque calculi are noted in the kidneys and course of the ureters in the abdomen. Multiple small round calcifications in the pelvis bilaterally are stable representing phleboliths. There is somewhat ovoid 1.6 cm calcific density in the right pelvis, stable finding compared to previous CT scan of 06/30/2023, most probably representing calcified epiploic appendage. No acute osseous abnormality. Small lucent lesion with peripheral sclerotic rim measuring 1.1 cm in the left femoral neck is a stable finding since previous lumbar spine x-ray of 08/04/2016. XR/XR abdomen min 2V IMPRESSION: No evidence of radiopaque urinary tract calculi. No evidence of abnormal bowel dilatation or bowel obstruction. Moderate stool burden in the colon.
[2024-02-15 12:38] LABS: MANUAL DIFF FLAG NO
[2024-02-15 13:41] LABS: Basophils Percent Auto 0.5 % (0-2); Eosinophils Percent Auto 0.3 % (0-4); Hematocrit 34.9 % (37.0-47.0); Hemoglobin 11.4 g/dl (12.0-16.0); Imm Gran Abs Auto 0.02 X10*3/uL (0.00-0.03); Imm Gran Pct Auto 0.3 % (0.0-0.4); Lymphocytes Absolute Auto 2.9 X10*3/uL (1.2-4.9); Lymphocytes Percent Auto 44.1 % (20-40); Mean Corpuscular HGB Conc 32.7 g/dl (31.0-35.0); Mean Corpuscular Hemoglobin 31.1 pg (27.0-33.0); Mean Corpuscular Volume 95.1 fL (80.0-98.0); Mean Platelet Volume 10.6 fL (9.4-12.3); Monocytes Absolute Auto 0.5 X10*3/uL (0.1-1.2); Monocytes Percent Auto 6.9 % (2-11); Neutrophils Absolute Auto 3.2 x10*3/uL (2.0-8.3); Neutrophils Percent Auto 47.9 % (45-73); Platelet Count 316 X10*3/uL (160-400); Red Blood Count 3.67 X10*6/uL (4.20-5.50); Red Cell Distribution Width 12.4 % (11.0-16.0); White Blood Count 6.7 X10*3/uL (4.8-10.8)
[2024-02-15 14:04] LABS: Appearance Urine Clear; Color Urine Yellow; Glucose Urine UA Negative (Negative); Leukocyte Esterase Urine Negative (Negative); Nitrite Urine Negative (Negative); PH 6.5 (5.0-9.0); Urine Blood Negative (Negative); Urine Ketones Negative (Negative); Urine Protein Negative (Neg-Trace)
[2024-02-15 14:21] LABS: Erythrocyte Sedimentation Rate 23 MM/HR (0-20)
[2024-02-15 14:26] LABS: Alanine Aminotransferase 13 U/L (0-31); Albumin Level 4.3 g/dL (3.5-5.0); Alkaline Phosphatase 86 U/L (39-117); Anion Gap 12 (12-20); Aspartate Amino Transferase 18 U/L (5-31); Bilirubin Total 0.3 mg/dL (0.0-1.0); Blood Urea Nitrogen 15 mg/dL (9-16); Calcium 9.5 mg/dL (8.4-10.2); Carbon Dioxide 24 mmol/L (22-29); Chloride 110 mmol/L (96-108); Estimated Glomerular Filt Rate > 60; Glucose Random 106 mg/dL (60-115); Potassium 3.7 mmol/L (3.3-5.1); Sodium 142 mmol/L (135-145); Total Protein 7.9 g/dL (6.5-8.0)
== END 2024-02-15 11:13 | disposition home or self-care (01) ==
LOC: HO.LAB 11:12
PROVIDERS: PCP Internal Medicine; Visit Provider Nurse Practitioner
DX: R10.11 Right upper quadrant pain (principal); K58.0 Irritable bowel syndrome with diarrhea; K21.9 Gastro-esophageal reflux disease without esophagitis; K75.81 Nonalcoholic steatohepatitis (NASH)
CPT/HCPCS: 36415; 74019; 80053; 81003; 85025; 85652; 86140; 99212

== ENCOUNTER 2024-02-15 11:12 | Outpatient (AMB) | payer OTHER, SELFPAY ==
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
[2024-02-15 11:32] VITALS: BP 123/71; PULSE 76; BMI 23.4
== END 2024-02-15 12:10 | disposition home or self-care (01) ==
PROVIDERS: PCP Internal Medicine; Visit Provider Nurse Practitioner
DX: K58.0 Irritable bowel syndrome with diarrhea (principal); K21.9 Gastro-esophageal reflux disease without esophagitis; K75.81 Nonalcoholic steatohepatitis (NASH); R10.9 Unspecified abdominal pain
CPT/HCPCS: 99213

== ENCOUNTER 2024-02-29 12:13 | Outpatient (AMB) | payer OTHER, SELFPAY ==
[2024-02-29 12:21] VITALS: BP 107/87; PULSE 89; O2SAT 99; BMI 23.4
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
== END 2024-02-29 12:44 | disposition home or self-care (01) ==
PROVIDERS: PCP Internal Medicine; Visit Provider Nurse Practitioner
DX: R10.9 Unspecified abdominal pain (principal); K58.0 Irritable bowel syndrome with diarrhea; K21.9 Gastro-esophageal reflux disease without esophagitis
CPT/HCPCS: 99213

== ENCOUNTER → 2024-02-29 12:13 | Outpatient (BNVA) | payer OTHER, SELFPAY | PROVIDERS: PCP Internal Medicine; Visit Provider Nurse Practitioner | DX: R10.9 Unspecified abdominal pain (principal); K58.0 Irritable bowel syndrome with diarrhea; K21.9 Gastro-esophageal reflux disease without esophagitis | CPT/HCPCS: 99212 ==

== ENCOUNTER 2024-05-24 13:28 | Outpatient (REF) | payer OTHER, SELFPAY ==
--- NOTE | ~2024-05-24 | MM_ITS ---
EXAMINATION: MM SCREENING DIGITAL BREAST TOMOSYNTHESIS, BILATERAL CLINICAL INFORMATION: Screening. Asymptomatic. COMPARISON: Mammography: Comparison is made with available priors TECHNIQUE: Digital breast mammography with tomosynthesis is performed in both the craniocaudal and mediolateral oblique views along with computer-aided detection (CAD). FINDINGS: The breasts are heterogeneously dense, which may obscure small masses (ACR BI-RADS breast composition Category c). There are no significant masses, abnormal calcifications, or other abnormalities. MM/MM tomosynthesis screening BI IMPRESSION: No mammographic evidence of malignancy. ASSESSMENT: BI-RADS BI-RADS 1 - Negative RECOMMENDATION: Routine annual mammography screening. 1 year F/U This examination should not preclude the clinical evaluation of a suspicious palpable abnormality. This patient's information was entered into a reminder system with a target due date for their next mammogram. Electronically signed by: Latosha Davila DO 06/01/2024 11:49 AM ZITA
== END 2024-05-24 13:29 | disposition home or self-care (01) ==
LOC: HO.MAMMO 13:28
PROVIDERS: PCP Internal Medicine; Visit Provider Internal Medicine
DX: Z12.31 Encounter for screening mammogram for malignant neoplasm of breast (principal)
CPT/HCPCS: 77063; 77067

== ENCOUNTER → 2024-05-24 13:45 | Outpatient (BNV) | payer OTHER, SELFPAY | PROVIDERS: PCP Internal Medicine; Visit Provider Internal Medicine | DX: Z12.31 Encounter for screening mammogram for malignant neoplasm of breast (principal) | CPT/HCPCS: 77063; 77067 ==

== ENCOUNTER 2024-06-18 12:18 | Outpatient (AMB) | payer OTHER, SELFPAY ==
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
[2024-06-18 12:42] VITALS: BP 110/70; PULSE 81; O2SAT 98; BMI 24.1
== END 2024-06-18 13:38 | disposition home or self-care (01) ==
PROVIDERS: PCP Internal Medicine; Visit Provider Internal Medicine
DX: E11.40 Type 2 diabetes mellitus with diabetic neuropathy, unspecified (principal); Z87.898 Personal history of other specified conditions

== ENCOUNTER → 2024-06-18 12:18 | Outpatient (BNVA) | payer OTHER, SELFPAY | PROVIDERS: PCP Internal Medicine; Visit Provider Internal Medicine | DX: E11.40 Type 2 diabetes mellitus with diabetic neuropathy, unspecified (principal); Z87.898 Personal history of other specified conditions | CPT/HCPCS: 99212 ==

== ENCOUNTER 2024-06-23 12:04 | Outpatient (REF) | payer OTHER, SELFPAY | END 2024-06-23 12:05 | disposition home or self-care (01) | LOC: HO.LNP 12:04 | PROVIDERS: Visit Provider Physician Assistant Medical | DX: Z13.89 Encounter for screening for other disorder (principal) ==

== ENCOUNTER 2024-06-23 12:04 | Outpatient (AMB) | payer OTHER, SELFPAY ==
[2024-06-23 14:52] VITALS: BP 92/60; PULSE 94; TEMP 36.7; O2SAT 99; BMI 23.6
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
== END 2024-06-23 15:50 | disposition home or self-care (01) ==
PROVIDERS: PCP Internal Medicine; Visit Provider Physician Assistant Medical
DX: K58.0 Irritable bowel syndrome with diarrhea (principal)

== ENCOUNTER → 2024-06-23 12:04 | Outpatient (BNVA) | payer OTHER, SELFPAY | PROVIDERS: PCP Internal Medicine; Visit Provider Physician Assistant Medical | DX: K58.0 Irritable bowel syndrome with diarrhea (principal) | CPT/HCPCS: 81003; 99212 ==

== ENCOUNTER 2024-06-25 14:53 | Outpatient (REF) | payer OTHER, SELFPAY ==
[2024-06-25 18:35] LABS: Appearance Urine Clear; Color Urine Yellow; Glucose Urine UA Negative (Negative); Leukocyte Esterase Urine Negative (Negative); Nitrite Urine Negative (Negative); PH 5.5 (5.0-9.0); Specific Gravity - Urine 1.025 (1.005-1.025); Urine Blood Negative (Negative); Urine Ketones Negative (Negative); Urine Protein Negative (Neg-Trace)
== END 2024-06-25 14:54 | disposition home or self-care (01) ==
LOC: HO.LAB 14:53
PROVIDERS: Visit Provider Physician Assistant Medical
DX: R30.0 Dysuria (principal)
CPT/HCPCS: 81003

== ENCOUNTER 2024-07-11 08:02 | Outpatient (REF) | payer OTHER, SELFPAY ==
[2024-07-11 10:17] LABS: MANUAL DIFF FLAG NO
[2024-07-11 10:30] LABS: Basophils Percent Auto 0.6 % (0-2); Eosinophils Percent Auto 0.3 % (0-4); Hematocrit 35.2 % (37.0-47.0); Hemoglobin 11.6 g/dl (12.0-16.0); Imm Gran Abs Auto 0.02 X10*3/uL (0.00-0.03); Imm Gran Pct Auto 0.3 % (0.0-0.4); Lymphocytes Absolute Auto 2.3 X10*3/uL (1.2-4.9); Lymphocytes Percent Auto 37.1 % (20-40); Mean Corpuscular Hemoglobin 30.9 pg (27.0-33.0); Mean Corpuscular Volume 93.9 fL (80.0-98.0); Mean Platelet Volume 11.2 fL (9.4-12.3); Monocytes Absolute Auto 0.5 X10*3/uL (0.1-1.2); Monocytes Percent Auto 7.8 % (2-11); Neutrophils Absolute Auto 3.4 x10*3/uL (2.0-8.3); Neutrophils Percent Auto 53.9 % (45-73); Platelet Count 277 X10*3/uL (160-400); Red Blood Count 3.75 X10*6/uL (4.20-5.50); Red Cell Distribution Width 12.6 % (11.0-16.0); White Blood Count 6.3 X10*3/uL (4.8-10.8)
[2024-07-11 10:38] LABS: Estimated Average Glucose 160 mg/dL; Hemoglobin A1C 162.9686 umol/L; Hemoglobin A1c % 7.2 % (<6.0); Total Hemoglobin (HGBA1C) 2938.5746 umol/L
[2024-07-11 10:44] LABS: Alanine Aminotransferase 19 U/L (0-31); Anion Gap 10 (12-20); Aspartate Amino Transferase 22 U/L (5-31); Blood Urea Nitrogen 15 mg/dL (9-16); Calcium 9.1 mg/dL (8.4-10.2); Carbon Dioxide 24 mmol/L (22-29); Chloride 111 mmol/L (96-108); Cholesterol 162 mg/dL (<200); Estimated Glomerular Filt Rate > 60; Glucose Fasting 138 mg/dL (60-99); HDL Cholesterol 47 mg/dL (>40); Iron 102 mcg/dL (30-160); LDL Cholesterol Calculated 92 mg/dL (<100); Percent Iron Saturation 34 % (15-50); Sodium 141 mmol/L (135-145); Total Iron Binding Capacity 298 mcg/dL (228-428); Triglycerides 118 mg/dL (<150); Unsaturated Iron Binding 196 ug/dL
== END 2024-07-11 08:03 | disposition home or self-care (01) ==
LOC: HO.HMGCLDS 08:02
PROVIDERS: PCP Internal Medicine; Visit Provider Internal Medicine
DX: D64.9 Anemia, unspecified (principal); E11.40 Type 2 diabetes mellitus with diabetic neuropathy, unspecified; E78.5 Hyperlipidemia, unspecified
CPT/HCPCS: 36415; 80048; 80061; 83036; 83540; 84450; 84460; 85025

== ENCOUNTER 2024-07-16 12:46 | Outpatient (AMB) | payer OTHER, SELFPAY ==
[2024-07-16 13:51] VITALS: BP 110/70; PULSE 86; O2SAT 99; BMI 24.1
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
== END 2024-07-16 14:18 | disposition home or self-care (01) ==
PROVIDERS: PCP Internal Medicine; Visit Provider Internal Medicine
DX: E11.40 Type 2 diabetes mellitus with diabetic neuropathy, unspecified (principal); D64.9 Anemia, unspecified; E78.5 Hyperlipidemia, unspecified; M77.00 Medial epicondylitis, unspecified elbow

== ENCOUNTER → 2024-07-16 12:46 | Outpatient (BNVA) | payer OTHER, SELFPAY | PROVIDERS: PCP Internal Medicine; Visit Provider Internal Medicine | DX: E11.40 Type 2 diabetes mellitus with diabetic neuropathy, unspecified (principal); D64.9 Anemia, unspecified; E78.5 Hyperlipidemia, unspecified; M77.00 Medial epicondylitis, unspecified elbow | CPT/HCPCS: 99212 ==

== ENCOUNTER 2024-10-12 09:13 | Outpatient (REF) | payer OTHER, SELFPAY ==
[2024-10-12 10:10] LABS: MANUAL DIFF FLAG NO
[2024-10-12 10:22] LABS: Basophils Percent Auto 0.4 % (0-2); Eosinophils Percent Auto 0.5 % (0-4); Hematocrit 36.1 % (37.0-47.0); Hemoglobin 11.8 g/dl (12.0-16.0); Imm Gran Abs Auto 0.01 X10*3/uL (0.00-0.03); Imm Gran Pct Auto 0.2 % (0.0-0.4); Lymphocytes Absolute Auto 2.6 X10*3/uL (1.2-4.9); Mean Corpuscular HGB Conc 32.7 g/dl (31.0-35.0); Mean Corpuscular Hemoglobin 31.1 pg (27.0-33.0); Mean Platelet Volume 10.6 fL (9.4-12.3); Monocytes Absolute Auto 0.5 X10*3/uL (0.1-1.2); Monocytes Percent Auto 8.8 % (2-11); Neutrophils Absolute Auto 2.6 x10*3/uL (2.0-8.3); Neutrophils Percent Auto 45.1 % (45-73); Platelet Count 283 X10*3/uL (160-400); Red Cell Distribution Width 12.2 % (11.0-16.0); White Blood Count 5.7 X10*3/uL (4.8-10.8)
[2024-10-12 10:33] LABS: Estimated Average Glucose 148 mg/dL; Hemoglobin A1C 159.1858 umol/L; Hemoglobin A1c % 6.8 % (<6.0); Total Hemoglobin (HGBA1C) 3137.3012 umol/L
[2024-10-12 11:04] LABS: Alanine Aminotransferase 19 U/L (0-31); Anion Gap 11 (12-20); Aspartate Amino Transferase 28 U/L (5-31); Blood Urea Nitrogen 13 mg/dL (9-16); Calcium 9.4 mg/dL (8.4-10.2); Carbon Dioxide 26 mmol/L (22-29); Chloride 109 mmol/L (96-108); Cholesterol 146 mg/dL (<200); Estimated Glomerular Filt Rate > 60; Glucose Fasting 109 mg/dL (60-99); HDL Cholesterol 44 mg/dL (>40); LDL Cholesterol Calculated 79 mg/dL (<100); Sodium 142 mmol/L (135-145); Triglycerides 115 mg/dL (<150)
[2024-10-12 11:20] LABS: Vitamin D 25-OH Total 30.2 ng/mL (>30)
[2024-10-12 11:21] LABS: Creatinine Urine 110.32 mg/dL; Microalbum/Creatinine Ratio Ur 6.3 ug/mg cr (<30)
== END 2024-10-12 09:14 | disposition home or self-care (01) ==
LOC: HO.HMGCLDS 09:13
PROVIDERS: PCP Internal Medicine; Visit Provider Internal Medicine
DX: D64.9 Anemia, unspecified (principal); E11.40 Type 2 diabetes mellitus with diabetic neuropathy, unspecified; E78.5 Hyperlipidemia, unspecified; E55.9 Vitamin D deficiency, unspecified
CPT/HCPCS: 36415; 80048; 80061; 82043; 82306; 82570; 83036; 84450; 84460; 85025

== ENCOUNTER 2024-10-18 15:16 | Outpatient (AMB) | payer OTHER, SELFPAY ==
[2024-10-18 15:26] VITALS: BP 120/72; PULSE 92; RESP 14; TEMP 36.8; O2SAT 100; BMI 23.9
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
--- OUTSIDE RECORDS SUMMARY | 2024-10-18 18:55 | XMS_ITS | Clinical Summary ---
Author Organization [facility] Address [address] [place] [address] Care Team Providers Care Pet Handler Name Role Phone Afua Oakley PA-C Primary Care Provider [phone] Source Comments PLEASE NOTE, if this patient is a minor, it may be UNLAWFUL to discuss sensitive information that is contained in these records (such as FAMILY PLANNING, MENTAL HEALTH or SUBSTANCE ABUSE) with the minor patient's parent or other person without the patient's specific authorization.[facility] Allergies Active Allergy Reactions Criticality Noted Date Comments Sulfa (Sulfonamide Antibiotics) 08/14/[address] Eubanks notes date 05/20/10 Medications ergocalciferol, vitamin D2, (VITAMIN D2) 50,000 unit capsule 0 5 Active nebulizer accessories Active SUMAtriptan (IMITREX) 100 mg tablet Take by mouth once as needed for migraine. May repeat in 2 hours if no relief. Do not take more than 2 tablets in 24 hours. Active naproxen (NAPROSYN) 500 mg tabletIndication s:Trigger middle finger of left hand Take 1 Tab by mouth 2 (two) times daily with a meal. 5 Active blood sugar diagnostic (FREESTYLE LITE STRIPS) stripsIndication s:Diabetes type 2, uncontrolled 1 Strip as needed for high blood sugar. 250.02 type 2 uncontrolled 100 Each 3 5 Active simvastatin (ZOCOR) 40 mg tabletIndication s:Abnormal cholesterol test Take 1 Tab by mouth nightly at bedtime. 30 Tab 3 5 Active albuterol (ACCUNEB) 1.25 mg/3 mL nebulizer solutionIndicati ons:Mild intermittent asthma without complication Take 3 mL by nebulization every 6 (six) hours as needed for wheezing. 1 Vial 6 6 Active fluticasone (FLOVENT HFA) 110 mcg/actuation inhalerIndicatio ns:asthma prevention,asthm a Inhale 1 Puff into the lungs 2 (two) times daily. Indications: Asthma Prevention, ASTHMA 1 Inhaler 3 6 Active albuterol sulfate hfa (PROAIR HFA) 90 mcg/actuation inhalerIndicatio ns:Mild intermittent asthma without complication Inhale 2 Puffs into the lungs every 4 (four) hours as needed for wheezing. 18 g 3 6 Active predniSONE (DELTASONE) 10 mg tabletIndication s:Mild intermittent asthma without complication 0 6 Active clotrimazole (LOTRIMIN) 1 % creamIndications :Tinea pedis of both feet Apply topically 2 (two) times daily. 15 g 0 6 Active gabapentin (NEURONTIN) 300 mg capsuleIndicatio ns:neuropathic pain Take 1 Cap by mouth 3 (three) times daily. Indications: Neuropathic Pain 90 Cap 3 6 Active citalopram (CELEXA) 20 mg tabletIndication s:depression associated with bipolar disorder,rxed by [facility]. looking for new Take 0.5 Tabs by mouth once daily. Indications: DEPRESSION ASSOCIATED WITH BIPOLAR DISORDER, rxed by [facility]. looking for new 15 Tab 3 6 Active lancets (FREESTYLE LANCETS) 28 gauge Dx. E11.9 checks once daily 100 Each 3 6 Active metFORMIN (GLUCOPHAGE) 500 mg tabletIndication s:Controlled type 2 diabetes mellitus without complication, without long-term current use of insulin ([facility]) take 1 tablet by mouth twice a day with A MEAL 10 Tab 0 7 Active Active Problems Problem Noted Date Diagnosed Date Fibroid 10/15/2015 Overview (10/15/2015): Planning pelvic next visit Colon cancer screening/repea t in 10yr, aug-2025/ HAD EGD ALSO, await bx path 09/05/2015 Overview (09/18/2015): 08/26/15 [facility] [phone], Dr. Arnold Plaza MD, had upper GI and colonoscopy prep was adequate. + non bleeding internal hemorrhoids-modnormal repeat in 10 years EGD: normal esophagus, normal stomach, bx taken- normal and neg for pylori, normal duodenum Pap smear for cervical cancer screening/ Next du e 07/202008/14/2015 Overview (09/12/2015): 08/13/15 NIL with ECc HPV negative next pap due Jul 2020 04/21/15 NIL HPV NEG, with ECC NEXT pap due 201903/28/12 NIL, no ECC, hpv neg 05/20/10: NIL with ECC 04/30/09: NIL, with ECC 12/13/07: benign secretory endometrium, no evidence of hyperplasia, or atypia 12/07/07 NIL. With ECC H/O bone density study 08/14/2015 Overview (08/14/2015): [facility] 06/02/15 Normal DUB (dysfunctional uterine bleeding) 08/14/2015 Overview (08/14/2015): Has ablation in 2007, 09/19/14: Pelvic u/s + sm fibroid,ovaries normal, + nabothian cyst 04/05/11: Normal Pelvic u/s 12/14/07: pelvic U/s 1.8 cm right ovarian cyst, thick endometrium, without focal endo metrium. No fibroid, otherwise normal History of EKG 08/14/2015 Overview (08/14/2015): Eduar 02/07/08 NSR Encounter for gynecological examination 08/13/19 16 Overview (08/13/2015): Normal exam, the pt had a ablation done for fibroid, in 2007 Hematuria, microscopic 04/17/2015 Overview (04/17/2015): Renal U/s normal [facility] 04/11/15. Kidneys are normal. No mass/stone/or obstruction noted. Right uretal jet WNL, left not seen Injury of right toe 04/17/2015 Overview (04/17/2015): Eduar 04/04/15 neg for fx Disability examination 12/20/2014 Overview (12/20/2014): rec form form SSI, pt req disability, sent to [facility], [place] person 12/20/14 Trigger middle finger of left hand 11/18/2014 Overview (12/12/2014): Marquis arana 11/25/14: Plan flexor tenosynovectomy Has surg planned 12/13 Breast cancer screening/ 11/12/14 birad -2 2014 Overview (08/14/2015): Eduar birad-s 2 11/12/14 10/18/13 birad 2 10/12/12 birads 2 06/03/10 birad 2 03/20/09: eduar Swapna 1 Diabetes type 2, controlled ([facility]) 08/25/2014 Overview (06/23/2015): Lab Results Component Value Date HGBA1C 7.6* 08/23/2014 Lab Results Component Value Date GLUCOSE 106* 08/23/2014 EAG 171 08/23/2014 has appt with maycol 09/17/14 On Metformin 500 Bid( did not james the 1000mg bid) Checks bs x 1 daily. This was signed 09/29/14 This is new, will start metformin and refer to [facility] for ed 08/25/14 Lab Results Component Value Date HGBA1C 6.7* 12/10/2014 Lab Results Component Value Date PROTEIN 7.3 12/10/2014 AST 30 12/10/2014 ALT 33 12/10/2014 ALKPHOS 108 12/10/2014 BILI 0.4 12/10/2014 Eye doc: [facility] #[id number] Lab Results Component Value Date HGBA1C 6.2 02/25/2015 Perfect! On metformin 500 bid 04/08/15 signed form for home diabetic supplies through [facility] Lab Results Component Value Date HGBA1C 6.5* 06/23/2015 Hepatitis B antibody positiv e: and Hep A antibody positive per serology; IMMUNE 08/24/2014 Abnormal cholesterol test 08/24/2014 Overview (06/26/2015): Lab Results Component Value Date TRIGLYC 103 08/23/2014 CHOL 213* 08/23/2014 HDL 50 08/23/2014 LDL 143* 08/23/2014 Refer to [facility] done. appt 09/17/14 made Mod intensity statin begun 12/11/14: will check FASTING in 12 weeks LFT and lipid ( due Mar 13) Lab Results Component Value Date TRIGLYC 65 02/25/2015 CHOL 139 02/25/2015 HDL 46 02/25/2015 LDL 80 02/25/2015 Lab Results Component Value Date PROTEIN 7.2 02/25/2015 AST 30 02/25/2015 ALT 30 02/25/2015 ALKPHOS 95 02/25/2015 BILI 0.4 02/25/2015 Perfect! On zocor 20 Lab Results Component Value Date LDL 125* 06/23/2015 increaseing to zocor Jun Asthma Overview (10/18/2014): controlled with flovent 110 Peak flow 605!! ( expected 357) (360,605,330): not used flovent rarely, once weekly. Pain Overview (10/18/2014): muscle spasm LBP: refer to PT 09/13/14. Ed on stretching given/heat massage: gabapentin once daily the therapy is improving LBP (low back pain) Overview (10/23/2014): rad to leg sciata also never had PT: film done [facility] long ago. 09/13/14 film ordered, and refer to PT Edu[facility] 09/27/14: Disc space narrowing L5-S1 which has progressed from last exam. No fx or sublux: pt aware of result Pt notes rec [facility] [phone] PT form signed 10/23/14 for cont therapy Depressive disorder, not elsewhere classified Overview (08/23/2014): not in conseling: by willing to try Resolved Problems Problem Noted Date Diagnosed Date Resolved Date H/O bone density study/normal Jun 02, 2015 06/14/2015 06/14/2015 Overview (08/19/2015): bmd done NORMAL 06/02/15 [facility]; done secondary to metabolic bone disease, post menopausal [facility] ? [address] ? [place] [address] ? A Member of [facility] ? Patient: ??SPRING NICKERSON ? : 1965 ? Age: 50 ? Gender: F ? Account: [id number] ? Report: Alva Dexa Axial Skeleton ? Ordered By: SOPHY OATES ?MD ? Date: 06/02/2015 3:29:09 PM ? Status: F ? DEXA (dual-energy x-ray absorptiometry) 54426 ? History: ??Metabolic bone disease. Post menopausal estrogen deficiency. ? Technique: Bone densitometry was performed utilizing dual energy x-ray absorptiometry (DEXA). The lumbar spine is evaluated in the AP projection at L3 and L4. L1 and L2 were omitted because of excessive sclerosis. The proximal femora are evaluated in the AP projection bilaterally. ? There are no prior studies available for direct comparison at this institution. ? Findings: ? AP spine: ? Bone mineral density: 1.189 gm/cm2 ? T-score: -0.1 ? Femoral total (mean, bilateral): ? Bone mineral density: 1.079 gm/cm2 ? T-score: 0.6 ? IMPRESSION: ? Findings suggesting normal bone mineral density. ? 15426 ? A report detailing these results has been enclosed Elevated serum glutamic pyru lilliana transaminase (SGPT) level 08/25/2014 12/11/2014 Overview (09/13/2014): Lab Results Component Value Date PROTEIN 7.6 08/23/2014 AST 44* 08/23/2014 ALT 70* 08/23/2014 ALKPHOS 120 08/23/2014 BILI 0.4 08/23/2014 prob DM related, new dx type 2 a1c 7.6: will assess at 3 months after initiating tx due re check October or november 2014 Trigger finger of both hands 04/17/2015 Overview (11/18/2014): [facility] 11/07/14: third finger swelling no films tx with naprosyn. S/p release right third and thumb via Dr. Arana 03/2014. Immunizations Immunization Administration Dates Next Due PNEUMOCOCCAL CONJUGATE PCV 13 06/26/2015 TDAP 08/23/2014 Family History Medical History Relation Name Comments Alcohol/Drug Abuse Father stomach/ETOH Cancer Father stomach/ETOH Cancer Sister 2 uterus Relation Name Status Comments Brother 1 aids Alive Brother 2 well Alive Brother 3 suicide Father stomach/ETOH Mother well Alive Sister 1 well Alive Sister 2 uterus Alive Social History Tobacco Use Types Packs/Day Years Used Date Smoking Tobacco: Never Smokeless Tobacco: Never Alcohol Use Standard Drinks/Week Comments No 0 (1 standard drink = 0.6 oz pur e alcohol) never Social Connections Answer Date Recorded Social Connections and Isolation 0 03/18/2019 Financial Resource Strain Answer Date R ecorded Financial Resource Strain 0 2018 Stress Answer Date Recorded Stress 0 03/18/2019 Physical Activity Answer Date Recorded Physical Activity 0 03/18/2019 Food Insecurity Answer Date Recorded Food 0 03/18/2019 Transportation Needs Answer Date Record ed Transportation 0 03/18/2019 Housing Stability Answer Date Recorded Housing 0 03/18/2019 Safety and Environment Answer Date Victor Manuel rded Safety 0 03/18/2019 Utilities Answer Date Recorded Utilities 0 03/18/2019 Employment Answer Date Recorded Employment 0 03/18/2019 Comments No Sex and Gender Information Value Date Recorded Sex Assigned at Not on file Legal Sex Female 11:40 AM PST Gender Identity Not on file Sexual Orientation Not on file 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 Not on file Not on file Last Filed Vital Signs Vital Sign Reading Time Taken Comments Blood Pressure 102/78 10/15/2015 1:08 PM EDT Pulse 86 10/15/2015 1:08 PM EDT Temperature 36.8 ??C (98.2 ??F) 10/15/2015 1:08 PM ED T Respiratory Rate 12 10/15/2015 1:08 PM EDT Oxygen Saturation 98% 10/18/2014 11:02 AM EDT Inhaled Oxygen Concentration - - Weight 64.9 kg (143 lb) 10/15/2015 1:08 PM EDT Height 160 cm (5' 3 ) 06/26/2015 9:05 AM EST Body Mass Index 25.33 06/26/2015 9:05 AM EST Plan of Treatment Not on file Insurance [facility] Member Subscriber Plan / Payer (Ef fective 2014-Present) Name:Spring Nickerson Relation to Subscriber:Self Name:Krishan Spring Payer ID:[id number] Group ID:Not on file Type:Medicaid Address: [facility] [id number] [id number] Care Teams Pet Handler Relationship Specialty Start Date End Date Afua Oakley PA-C [address] [place] [address] PCP - General 09/19/18
--- OUTSIDE RECORDS SUMMARY | 2024-10-18 18:55 | XMS_ITS | Encounter Summary ---
Author Organization [facility] Address [address] [place] [address] Care Team Providers Care Human Resources Executive Assistant Name Role Phone Jocelyne Bravo MD Primary Care Provider Encounter Details Date Type Department Care Team (Late st Contact Info) Description 09/10/2024 Telephone Orthopedic Surgery - [place] [address] [phone] Kayden Rivera DPM [address] [address] Social History Tobacco Use Types Packs/Day Years Used Date Smoking Tobacco: Never Smokeless Tobacco: Never Alcohol Use Standard Drinks/Week Comments No 0 (1 standard drink = 0.6 oz pur e alcohol) Comments Unknown Sex and Gender Information Value Date Recorded Sex Assigned at Not on file Legal Sex Female 5:48 PM EST Gender Identity Not on file Sexual Orientation Not on file documented as of this encounter Progress Notes * Cassie Rivera - 09/10/2024 8:49 AM EST Spring called in stating she was returning your call to be booked for surgery. Please advise. Thanks documented in this encounter Plan of Treatment Upcoming Encounters Date Type Department Care Team (Latest Contact Info) Description 11/12/2024 1:45 PM EDT Office Visit Orthopedic Surgery [facility] [address] [phone] Kayden Rivera DPM [address] [address] 12/07/2024 7:30 AM EDT Hospital Encounter [facility] [place] [address] [place] [phone] aKyden Rivera DPM [address] [phone] 12/07/2024 7:30 AM EDT - 12/07/2024 9:[address] [facility] [place] [address] [place] [phone] Kayden Rivera DPM [address] [address] BUNIONECTOMY [[id number] (CPT??)] 12/20/2024 1:00 PM EDT Office Visit Orthopedic Surgery - [place] [address] [phone] Kayden Rivera DPM [address] [address] Scheduled Procedures Name Priority Associated Diagnoses Date/Ti me BUNIONECTOMY Bunion, left 12/07/2024 7:30 AM EDT documented as of this encounter Visit Diagnoses Not on filedocumented in this encounter Care Teams Human Resources Executive Assistant Relationship Specialty Start Date End Date Jocelyne Bravo MD [address] [place] [address] PCP - General 04/30/24 documented as of this encounter
--- OUTSIDE RECORDS SUMMARY | 2024-10-18 18:55 | XMS_ITS | Clinical Summary ---
Author Organization [facility] Address [address] [place] [address] Phone Care Team Providers Care Bottom Stainer Name Role Phone Jocelyne Bravo MD Primary Care Provider Allergies No known active allergies Medications traZODone (DESYREL) 50 mg tablet 08/16/2018 Active ibuprofen (ADVIL,MOTRIN) 800 mg tablet Take 1 tablet (800 mg total) by mouth every 8 (eight) hours if needed. Active clotrimazole-be tamethasone (LOTRISONE) 1-0.05 % cream Apply a small amount to the affected areas of vulva twice daily as needed for itching/irrit ation. May use for up to 14 days. 08/10/2018 Active metFORMIN (GLUCOPHAGE) 500 mg tablet Take 1.5 tablets (750 mg total) by mouth 2 (two) times a day with meals. Active albuterol HFA (PROAIR HFA ; PROVENTIL HFA ; VENTOLIN HFA) 90 mcg/actuation inhaler Inhale 2 puffs by mouth every 4 (four) hours if needed. Active GABAPENTIN ORAL Take by mouth. Active butalb/acetamin ophen/caffeine (FIORICET ORAL) Take by mouth. Active citalopram (CeleXA) 10 mg tablet Take 2 tablets (20 mg total) by mouth 1 (one) time each day. Active Active Problems Problem Noted Date Diagnosed Date Bunion, left 08/13/2024 Right carpal tunnel syndrome 02/04/2023 Trigger little finger of right hand 02/04/2023 Depression 08/10/2018 Diabetes 08/10/2018 Hyperlipidemia 08/10/2018 Encounters Date Type Department Care Team Description 09/10/2024 Telephone Orthopedic Surgery [facility] [address] [phone] Kayden Rivera DPM 09/08/2024 Telephone Orthopedic Surgery [facility] [address] [phone] Dori Gregory 08/13/2024 1:30 PM EST Consult Orthopedic Surgery [facility] [address] [phone] Kayden Rivera DPM Controlled type 2 diabetes with neuropathy (CMS/HCC) (Primary Dx); Pain in left foot; Bunion, left from Last 3 Months Surgical History Surgery Date Site/Laterality Comments TUBAL LIGATION PROCEDURE: HISTORICAL TUBAL LIGATION OTHER SURGICAL HISTORY 2007 PROCEDURE: ---- OTHER ----; COMMENT: uterine ablation COLONOSCOPY PROCEDURE: HISTORICAL COLONOSCOPY Medical History Medical History Date Comments DM (diabetes mellitus) with complications (CMS/HCC) DX:DM (diabetes mellitus) wi th complications (HCC) Hyperlipidemia DX:Hyperlipidemi a Depression DX:Depression Arthritis DX:Arthritis Family History Medical History Relation Name Comments Stomach cancer Father Breast cancer Other Uterine cancer Sister Colon cancer Neg Hx Ovarian cancer Neg Hx Pancreatic cancer Neg Hx Prostate cancer Neg Hx Relation Name Status Comments Father Other Sister Alive Social History Tobacco Use Types Packs/Day Years Used Date Smoking Tobacco: Never Smokeless Tobacco: Never Tobacco Cessation:Counseling Given: Not Answered Alcohol Use Standard Drinks/Week Comments No 0 (1 standard drink = 0.6 oz pur e alcohol) Comments Unknown Sex and Gender Information Value Date Recorded Sex Assigned at Not on file Legal Sex Female 5:48 PM EST Gender Identity Not on file Sexual Orientation Not on file Obstetrics History Last Filed Vital Signs Vital Sign Reading Time Taken Comments Blood Pressure 122/74 02/04/2023 12:57 PM EDT Pulse - - Temperature - - Respiratory Rate - - Oxygen Saturation - - Inhaled Oxygen Concentration - - Weight 62.6 kg (138 lb) 08/13/2024 1:42 PM EST Height 165.1 cm (5' 5 ) 08/13/2024 1:42 PM EST Body Mass Index 22.96 08/13/2024 1:42 PM EST Plan of Treatment Upcoming Encounters Date Type Department Care Team (Latest Contact Info) Description 11/12/2024 1:45 PM EDT Office Visit Orthopedic Surgery - [place] [address] [phone] Kayden Rivera DPM [address] [address] 12/07/2024 7:30 AM EDT Hospital Encounter [facility] [place] [address] [place] [phone] Kayden Rivera DPM [address] [address] 12/07/2024 7:30 AM EDT - 12/07/2024 9:00 AM EDT Surgery [facility] [place] [address] [place] [phone] Kayden Rivera DPM [address] [address] BUNIONECTOMY [[id number] (CPT??)] 12/20/2024 1:00 PM EDT Office Visit Orthopedic Surgery [place] [address] [phone] Kayden Rivera DPM [address] [address] Scheduled Procedures Name Priority Associated Diagnoses Date/Ti me BUNIONECTOMY Bunion, left 12/07/2024 7:30 AM EDT Health Maintenance Due Date Last Done Comments Diabetes: Annual GFR (Glomerular Filtration Rate) 1965 Diabetes: Annual Foot Exam 1975 Diabetes: Annual Retina Eye Exam 1975 Hepatitis B Vaccines (1 of 3 - 19+ 3-dose series) 1984 Pneumococcal Vaccine: 50+ Years (2 of 2 - PPSV23) 08/21/2015 06/26/2015 Pneumococcal Vaccine: Pediatrics (0 to 5 Years) and At-Risk Patients (6 to 64 Years) (2 of 2 - PPSV23) 08/21/2015 06/26/2015 Cervical Cancer Screening: Pap Smear 01/05/2020 01/04/2017, 01/04/2017 Breast Cancer Screening 05/08/2021 05/08/20 19, 05/22/2018, 05/04/2018, Additional history exists Cholesterol Screening (Lipid Panel) 06/26/2022 Colorectal Cancer Screening: Colonoscopy 06/26/2022 Depression Screening 06/26/2022 08/10/2018 Hepatitis C Screening 06/26/2022 Social Influencers of Health Screening 06/26/2022 Diabetes: Annual Urine Albumin-Creatinine Ratio (uACR) 07/10/2022 Diabetes: Blood Sugar Control Test (HGBA1C) 07/10/2022 Influenza Vaccine (#1) 2024 , 05/17/2022, 06/17/2021, Additional history exists COVID-19 Vaccine ( season) 2024 02/08/2024, 12/14/2021, 12/16/2020, Additional history exists Zoster Vaccines (2 of 2) 04/04/2024 02/08/2024 DTaP,Tdap,and Td Vaccines (3 - Td or Tdap) 03/16/2028 03/16/2018, 08/23/2014 RSV Immunization Patients 60+ Years Old (1 - 1-dose 75+ series) 2040 HIV Screening Completed 09/07/2019 HIB Vaccines Aged Out No longer eligi ble based on patient's age to complete this topic HPV Vaccines Aged Out No longer eligi ble based on patient's age to complete this topic Hepatitis A Vaccines Aged Out No long er eligible based on patient's age to complete this topic IPV Vaccines Aged Out No longer eligi ble based on patient's age to complete this topic MMR Vaccines Aged Out No longer eligi ble based on patient's age to complete this topic Meningococcal ACWY Vaccine Aged Out N o longer eligible based on patient's age to complete this topic Meningococcal B Vacine Aged Out No lo nger eligible based on patient's age to complete this topic RSV Immunization Patients Under 20 months Aged Out No longer eligible based on patient's age to complete this topic Varicella Vaccines Aged Out No longer eligible based on patient's age to complete this topic Procedures Procedure Name Priority Date/Time Associated Diagnosis Comments XR FOOT 3+ VIEWS LEFT Routine 08/13/2024 2:05 PM EST Pain HIV SCREENING Routine 09/07/2019 SCR MAMMO BI INCL CAD Routine 05/08/2019 1:52 PM EDT Encounter for screening mammogram for malignant neoplasm of breast DEPRESSION SCREENING Routine 08/10/2018 HPV Routine 01/04/2017 from Last 3 Months or Most Recently Relevant to Health Maintenance Results * XR Foot 3+ Views Left (08/13/2024 2:05 PM EST) Anatomical Region Laterality Modality Lower Extremities, Foot Left Computed Radiography Narrative 08/29/2024 7:55 PM EST Left foot 3 views weightbearing: Radiographs taken and reviewed. No evidence of wilder abnormality noted. No evidence of fracture or dislocation noted. Mild narrowing of first metatarsal phalangeal joint appreciated. Mild arthrosis noted to dorsal midfoot, localized to midtarsal joints. Hammered digits noted to interphalangeal joints. Increase in metatarsal angle between 1st and 2nd ray. Accessory ossicles noted. No evidence of foreign body. No evidence of gas or soft tissue. No evidence of cortical erosion noted. Kayden Rivera DPBautista IMG XR PROCEDURES Final Res ult * HIV Screening (09/07/2019) Pathologist [facility] [place] HIV Screening Abstracted us Historical Provider HEALTH MAINTENANCE Final Result * SCR MAMMO BI INCL CAD (05/08/2019 1:52 PM EDT) Anatomical Region Laterality Modality Radiographic Chiquita ging 05/04/2018 1:02 PM EDT Narrative 05/09/2019 8:47 AM EDT This is a summary report. The complete report is available in the patient's medical record. If you cannot access the medical record, please contact the sending organization for a detailed fax or copy. Exam: Screening mammogram Findings: Digital bilateral full-field screening mammography is performed and interpreted with the aid of computer-aided detection. ??Comparison is made with 05/22/2018 and as far back as 10/18/2013. Breast parenchyma is heterogeneously dense, limiting mammographic sensitivity. ??No worrisome interval change in numerous bilateral calcifications. No new suspicious mass, architectural distortion, or suspicious calcifications. Impression: No mammographic evidence of malignancy. BI-RADS 2-benign 5 year breast cancer risk assessment 0.5 % Lifetime breast cancer risk assessment 4.3 % Breast cancer risk category Low (<15%) Procedure Note Jennifer Echeverria MD - 07/13/2022 This is a summary report. The complete report is available in thepatient's medical record. If you cannot access the medical record, pleasecontact the sending organization for a detailed fax or copy. Exam: Screening mammogram Findings: Digital bilateral full-field screening mammography is performedand interpreted with the aid of computer-aided detection. Comparison ismade with 05/22/2018 and as far back as 10/18/2013. Breast parenchyma is heterogeneously dense, limiting mammographicsensitivity. No worrisome interval change in numerous bilateralcalcifications. No new suspicious mass, architectural distortion, orsuspicious calcifications. Impression: No mammographic evidence of malignancy. BI-RADS 2-benign 5 year breast cancer risk assessment 0.5 % Lifetime breast cancer risk assessment 4.3 % Breast cancer risk category Low (<15%) Lina Antony MD IMG XR PROCEDURES Final Resul t * Depression Screening (08/10/2018) Pathologist Replaced by [facility] Depression Screening Abstracted Nazario Pryor MD HEALTH MAINTENANCE Final Result * Cervical Cancer Screening: HPV (01/04/2017) Pathologist Replaced by [facility] Cervical Cancer Screening: HPV Abstracted, Negative Nazario Pryor MD HEALTH MAINTENANCE Final Result from Last 3 Months or Most Recently Relevant to Health Maintenance Insurance [facility] Advance Directives Documents on File Type Date Recorded 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 Health Care Decision (hx) 08/10/2019 AD CURRAN DIRECTIVE Health Care Decision (hx) 08/10/2019 AD CURRAN DIRECTIVE Health Care Decision (hx) 08/10/2019 AD CURRAN DIRECTIVE Health Care Decision (hx) 08/10/2019 AD CURRAN DIRECTIVE Health Care Decision (hx) 08/10/2019 AD CURRAN DIRECTIVE Health Care Decision (hx) 08/10/2019 AD CURRAN DIRECTIVE Health Care Decision (hx) 08/10/2019 AD CURRAN DIRECTIVE Health Care Decision (hx) 08/10/2019 AD CURRAN DIRECTIVE Health Care Decision (hx) 08/10/2019 AD CURRAN DIRECTIVE Health Care Decision (hx) 08/10/2019 AD CURRAN DIRECTIVE Health Care Decision (hx) 08/10/2019 AD CURRAN DIRECTIVE Health Care Decision (hx) 08/10/2019 AD CURRAN DIRECTIVE Care Teams Bottom Stainer Relationship Specialty Start Date End Date Jocelyne Bravo MD [address] [facility] [place] [address] PCP - General 04/30/24
== END 2024-10-18 16:10 | disposition home or self-care (01) ==
LOC: HO.HMCC 15:17
PROVIDERS: PCP Internal Medicine; Visit Provider Internal Medicine
DX: E11.40 Type 2 diabetes mellitus with diabetic neuropathy, unspecified (principal); E78.5 Hyperlipidemia, unspecified; I10 Essential (primary) hypertension

== ENCOUNTER → 2024-10-18 15:16 | Outpatient (BNVA) | payer OTHER, SELFPAY | PROVIDERS: PCP Internal Medicine; Visit Provider Internal Medicine | DX: E11.40 Type 2 diabetes mellitus with diabetic neuropathy, unspecified (principal); E78.5 Hyperlipidemia, unspecified; I10 Essential (primary) hypertension | CPT/HCPCS: 96127; 99212 ==

== ENCOUNTER 2024-11-28 13:38 | Outpatient (AMB) | payer OTHER, SELFPAY ==
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
[2024-11-28 13:42] VITALS: BP 110/66; BMI 23.7
--- OUTSIDE RECORDS SUMMARY | 2024-11-28 14:56 | XMS_ITS | Clinical Summary ---
Author Organization [facility] Address [address] [place] [address] Care Team Providers Care Gas Distribution Supervisor Name Role Phone Afua Oakley PA-C Primary Care Provider [phone] Source Comments PLEASE NOTE, if this patient [...] nebulizer solutionIndicati ons:Mild intermittent asthma without complication (HHS-HCC) Take 3 mL by nebulization every 6 (six) hours as needed for wheezing. 1 Vial 6 03/10/201 6 Active fluticasone (FLOVENT HFA) 110 mcg/actuation inhalerIndicatio ns:asthma prevention,asthm a Inhale 1 Puff into the lungs 2 (two) times daily. Indications: Asthma Prevention, ASTHMA 1 Inhaler 3 6 Active albuterol sulfate hfa (PROAIR HFA) 90 mcg/actuation inhalerIndicatio ns:Mild intermittent asthma without complication ([facility]) Inhale 2 Puffs into the lungs every 4 (four) hours as needed for wheezing. 18 g 3 6 Active predniSONE (DELTASONE) 10 mg tabletIndication s:Mild intermittent asthma without complication ([facility]) 0 6 Active clotrimazole (LOTRIMIN) 1 % creamIndications :Tinea pedis of both feet Apply topically 2 (two) times daily. 15 g 0 6 Active gabapentin (NEURONTIN) 300 mg capsuleIndicatio ns:neuropathic pain Take 1 Cap by mouth 3 (three) times daily. Indications: Neuropathic Pain 90 Cap 3 6 Active citalopram (CELEXA) 20 mg tabletIndication s:depression associated with bipolar disorder,rxed by [facility]. looking for new Take 0.5 Tabs by mouth once daily. Indications: DEPRESSION ASSOCIATED WITH BIPOLAR DISORDER, rxed by [facility]. looking for new 15 Tab 3 6 Active lancets (FREESTYLE LANCETS) 28 gauge Dx. E11.9 checks once daily 100 Each 3 6 Active metFORMIN (GLUCOPHAGE) 500 mg tabletIndication s:Controlled type 2 diabetes mellitus without complication, without long-term current use of insulin ([facility]) take 1 tablet by mouth twice a day with A MEAL 10 Tab 0 7 Active Active Problems Problem Noted Date Diagnosed Date Fibroid 10/15/2015 Overview (10/15/2015): Planning pelvic next visit Colon cancer screening/repea t in 10yr, aug-2025/ HAD EGD ALSO, await bx path 09/05/2015 Overview (09/18/2015): 08/26/15 [facility] [phone], Dr. Arnold Plaza MD, had upper GI [...] H/O bone density study 08/14/2015 Overview (08/14/2015): [facility] 06/02/15 Normal DUB (dysfunctional uterine bleeding) 08/14/2015 Overview (08/14/2015): Has ablation in 2007, 09/19/14: Pelvic u/s + sm fibroid,ovaries normal, + nabothian cyst 04/05/11: Normal Pelvic u/s 12/14/07: pelvic U/s 1.8 cm right ovarian cyst, thick endometrium, without focal endo metrium. No fibroid, otherwise normal History of EKG 08/14/2015 Overview (08/14/2015): [facility] 02/07/08 NSR Encounter for gynecological examination 08/13/19 16 Overview (08/13/2015): Normal exam, the pt had a ablation done for fibroid, in 2007 Hematuria, microscopic 04/17/2015 Overview (04/17/2015): Renal U/s normal [facility] 04/11/15. Kidneys are normal. No mass/stone/or obstruction noted. Right uretal jet WNL, left not seen Injury of right toe 04/17/2015 Overview (04/17/2015): [facility] 04/04/15 neg for fx Disability examination 12/20/2014 Overview (12/20/2014): rec form form SSI, pt req disability, sent to [facility]ana del[facility]illo, [place] person 12/20/14 Trigger middle finger of left hand 11/18/2014 Overview (12/12/2014): Marquis arana 11/25/14: Plan flexor tenosynovectomy Has surg planned 12/13 Breast cancer screening/ 11/12/14 birad -2 2014 Overview (08/14/2015): [facility] birad-s 2 11/12/14 10/18/13 birad 2 10/12/12 birads 2 06/03/10 birad 2 03/20/09: joannemp Swapna 1 Diabetes type 2, controlled ([facility]) 08/25/2014 Overview (06/23/2015): Lab Results Component Value Date HGBA1C 7.6* 08/23/2014 Lab Results Component Value Date GLUCOSE 106* 08/23/2014 EAG 171 08/23/2014 has appt with tawanda 09/17/14 On Metformin 500 Bid( did not james the 1000mg bid) Checks bs x 1 daily. This was signed 09/29/14 This is new, will start metformin and refer to Tawanda for ed 08/25/14 Lab Results Component Value Date HGBA1C 6.7* 12/10/2014 Lab Results Component Value Date PROTEIN 7.3 12/10/2014 AST 30 12/10/2014 ALT 33 12/10/2014 ALKPHOS 108 12/10/2014 BILI 0.4 12/10/2014 Eye doc: [facility] #[id number] Lab Results Component Value Date HGBA1C 6.2 02/25/2015 Perfect! On metformin 500 bid 04/08/15 signed form for home diabetic supplies through [facility] Lab Results Component Value Date HGBA1C 6.5* [...] 125* 06/23/2015 increaseing to zocor Jun Asthma ([facility]) Overview (10/18/2014): controlled with flovent 110 Peak flow 605!! ( expected 357) (360,605,330): not used flovent rarely, once weekly. Pain Overview (10/18/2014): muscle spasm LBP: refer to PT 09/13/14. Ed on stretching given/heat massage: gabapentin once daily the therapy is improving LBP (low back pain) Overview (10/23/2014): rad to leg sciata also never had PT: film done [facility] long ago. 09/13/14 film ordered, [facility]: Disc space narrowing L5-S1 which has progressed from last exam. No fx or sublux: pt aware of result Pt notes rec [facility] [phone] PT form signed 10/23/14 for cont therapy Depressive disorder, not elsewhere classified Overview (08/23/2014): not in conseling: by willing to try Resolved Problems Problem Noted Date Diagnosed Date Resolved Date H/O bone density study/normal Jun 02, 2015 06/14/2015 06/14/2015 Overview (08/19/2015): bmd done NORMAL 06/02/15 [facility]; done secondary to metabolic bone disease, post menopausal [facility] ? [address] [facility] ? [place] [address] ? A Member of the [employer] [facility] ? Patient: ??SPRING NICKERSON ? : 1965 ? Age: 50 ? Gender: F ? Account: [id number] ? Report: Alva Dexa Axial Skeleton ? Ordered By: SOPHY OATES ?MD ? Date: 06/02/2015 3:29:09 PM ? Status: F ? DEXA (dual-energy x-ray absorptiometry) 09107 ? History: ??Metabolic bone disease. Post menopausal [...] Findings suggesting normal bone mineral density. ? [id number] ? 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 Member Subscriber Plan / Payer (Ef fective 2014-Present) Name:KrishanSpring foote Relation to Subscriber:Self Name:Spring Nickerson Payer ID:[id number] Group ID:Not on file Type:Medicaid Address: [facility] [id number] [place] [address] Care Teams Gas Distribution Supervisor Relationship Specialty Start Date End Date Afua Oakley PA-C [address] [place] [address] PCP - General 09/19/18
--- OUTSIDE RECORDS SUMMARY | 2024-11-28 14:56 | XMS_ITS | Clinical Summary ---
Author Organization 175 [facility] Address [address] [place] [address] Phone Care Team Providers Care Sales Expert Home Theater Name Role Phone Jocelyne Bravo MD Primary Care Provider [phone] Allergies Active Allergy Reactions Criticality Noted Date Comments Prednisone Nausea And Vomiting 11/20/2024 Medications traZODone (DESYREL) 50 mg tablet 08/16/2018 Active ibuprofen (ADVIL,MOTRIN) 800 mg tablet Take 1 tablet (800 mg total) by mouth 2 (two) times a day. Active clotrimazole-be tamethasone (LOTRISONE) 1-0.05 % cream Apply a small amount to the affected areas of vulva twice daily as needed for itching/irrit ation. May use for up to 14 days. 08/10/2018 Active metFORMIN (GLUCOPHAGE) 1,000 mg tablet Take 1 tablet (1,000 mg total) by mouth 2 (two) times [...] of right hand 02/04/2023 Depression 08/10/2018 Diabetes (CMS/HCC V24, [facility] V28) 08/10/2018 Hyperlipidemia 08/10/2018 Encounters Date Type Department Care Team Description 11/27/2024 Telephone Orthopedic Surgery [facility] [address] [phone] Dori Gregory 11/12/2024 1:45 PM EDT Office Visit Orthopedic Surgery [facility] [address] [phone] Kayden Rivera DPM Controlled type 2 diabetes with neuropathy ([facility] V24, [facility] V28) (Primary Dx); Pain in left foot 09/10/2024 Telephone Orthopedic [facility] [address] [phone] Kayden Rivera DPM 09/08/2024 Telephone Orthopedic Surgery [facility] [address] [phone] Dori Gregory from Last 3 Months Surgical History Surgery Date Site/Laterality Comments TUBAL LIGATION PROCEDURE: HISTORICAL TUBAL LIGATION COLONOSCOPY PROCEDURE: HISTORICAL COLONOSCOPY CARPAL TUNNEL RELEASE ENDOMETRIAL ABLATION 07/25/2007 - 07/24/2008 Medical History Medical History Date Comments DM (diabetes mellitus) with complications ([facility] V24, [facility] V28) DX:DM (diabetes mellitus) w ith complications (HCC) Hyperlipidemia DX:Hyperlipidemi a Depression DX:Depression [...] - - Weight 62.6 kg (138 lb) 11/20/2024 12:00 PM EDT Height 160 cm (5' 3 ) 11/20/2024 12:00 PM EDT Body Mass Index 24.45 11/20/2024 12:00 PM EDT Plan of Treatment Upcoming Encounters Date Type Department Care Team (Latest Contact Info) Description 12/07/2024 7:30 AM EDT Hospital Encounter [facility] Main OR [address] [place] [phone] Kayden Rivera DPM [address] [address] 12/07/2024 7:30 AM EDT - 12/07/2024 9:00 AM EDT Surgery [facility] Main OR [address] [place] [phone] Kayden Rivera DPM [address] [address] BUNIONECTOMY [[id number] (CPT??)] 12/20/2024 1:00 PM EDT Office Visit Orthopedic Surgery - [address] [phone] Kayden Rivera DPM [address] [address] 02/11/2025 10:00 AM EDT Office Visit Orthopedic Surgery [place] [address] [phone] Kayden Rivera DPM [address] [address] Scheduled Procedures Name Priority Associated Diagnoses Date/Ti [...] Diabetes: Blood Sugar Control Test (HGBA1C) 07/10/2022 COVID-19 Vaccine ( season) 2024 02/08/2024, 12/14/2021, 12/16/2020, Additional history exists Zoster Vaccines (2 of 2) 04/04/2024 02/08/2024 Influenza Vaccine (Season Ended) 2025 05/19/2023, 05/17/2022, 06/17/2021, Additional history exists DTaP,Tdap,and Td Vaccines (3 - Td or Tdap) 03/16/2028 03/16/2018, 08/23/2014 RSV Immunization Adult Patients (1 - 1-dose 75+ series) 2040 HIV [...] age to complete this topic Meningococcal B Vaccine Aged Out No l onger eligible based on patient's age to complete this topic RSV Immunization Patients Under 20 months Aged Out No longer eligible based on patient's age to complete this topic Varicella Vaccines Aged Out No longer eligible based on patient's age to complete this topic Procedures Procedure Name Priority Date/Time Associated Diagnosis Comments HIV SCREENING Routine 09/07/2019 SCR MAMMO BI INCL CAD Routine 05/08/2019 1:52 PM EDT Encounter for screening mammogram for malignant neoplasm of breast DEPRESSION SCREENING Routine 08/10/2018 HPV Routine 01/04/2017 from Last 3 Months or Most Recently Relevant to Health Maintenance Results * HIV Screening (09/07/2019) Pathologist [facility] [place] HIV Screening Abstracted us Historical Provider MD HEALTH MAINTENANCE Final Result * SCR MAMMO [...] cancer risk category Low (<15%) Procedure Note Juwan, Jennifer, MD - 07/13/2022 This is a summary [...] Resul t * Depression Screening (08/10/2018) Pathologist [facility] Depression Screening Abstracted Historical Provider HEALTH MAINTENANCE Final Result * Cervical Cancer Screening: HPV (01/04/2017) [facility] Cervical Cancer Screening: HPV Abstracted, Negative Historical Provider HEALTH MAINTENANCE Final Result from Last 3 Months or Most Recently Relevant to Health [place] [id number] [facility] Advance Directives Documents on File Type Date Recorded 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
--- OUTSIDE RECORDS SUMMARY | 2024-11-28 14:56 | XMS_ITS | Encounter Summary ---
Author Organization [facility] Address [address] [place] [address] Care Team Providers Care University Professor Name Role Phone Jocelyne Bravo MD Primary Care Provider Encounter Details Date Type Department Care Team (Late st Contact Info) Description 11/27/2024 Telephone Orthopedic Surgery - [place] [address] [phone] Dori Gregory Social History Tobacco Use Types Packs/Day Years [...] as of this encounter Progress Notes * Dori Gregory - 11/27/2024 3:45 PM EDT NO PA needed for [facility] for CPT code 36502 documented in this encounter Plan of Treatment Upcoming Encounters Date Type Department Care Team (Latest Contact Info) Description 12/07/2024 7:30 AM EDT Hospital Encounter [facility] Main OR [address] [place] [phone] Kayden Rivera, CHAD [address] [address] 12/07/2024 7:30 AM EDT - 12/07/2024 9:00 AM EDT Surgery [facility] Main OR [address] [place] [phone] Kayden Rivera DPM [address] [address] BUNIONECTOMY [[id number] (CPT??)] 12/20/2024 1:00 PM EDT Office Visit Orthopedic Surgery [place] [address] [phone] Kayden Rivera DPM [address] [address] 02/11/2025 10:00 AM EDT Office Visit Orthopedic [place] [address] [phone] Kayden Rivera DPM [address] [address] Scheduled Procedures Name Priority Associated Diagnoses Date/Ti me BUNIONECTOMY Bunion, left 12/07/2024 7:30 AM EDT documented as of this encounter Visit Diagnoses Not on filedocumented in this encounter Care Teams University Professor Relationship Specialty Start Date End Date Jocelyne Bravo MD [address] [place] [address] PCP - General 04/30/24 documented as of this encounter
== END 2024-11-28 15:27 | disposition home or self-care (01) ==
LOC: HO.HWS 13:38
PROVIDERS: PCP Internal Medicine; Visit Provider Advanced Practice Midwife
DX: Z01.419 Encounter for gynecological examination (general) (routine) without abnormal findings (principal)
CPT/HCPCS: 99396; 99459

== ENCOUNTER → 2024-11-28 13:38 | Outpatient (BNVA) | payer OTHER, SELFPAY | PROVIDERS: PCP Internal Medicine; Visit Provider Advanced Practice Midwife | DX: Z01.419 Encounter for gynecological examination (general) (routine) without abnormal findings (principal) | CPT/HCPCS: 99396; 99459 ==

== ENCOUNTER 2025-01-16 11:37 | Outpatient (AMB) | payer OTHER, SELFPAY ==
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
[2025-01-16 12:18] VITALS: BP 135/70; PULSE 76; O2SAT 96; BMI 23.7
== END 2025-01-16 12:56 | disposition home or self-care (01) ==
LOC: HO.HGI 11:38
PROVIDERS: PCP Internal Medicine; Visit Provider Nurse Practitioner
DX: Z01.818 Encounter for other preprocedural examination (principal); K21.9 Gastro-esophageal reflux disease without esophagitis; K58.0 Irritable bowel syndrome with diarrhea; K26.9 Duodenal ulcer, unspecified as acute or chronic, without hemorrhage or perforation; J45.909 Unspecified asthma, uncomplicated
CPT/HCPCS: 99214

== ENCOUNTER → 2025-01-16 11:37 | Outpatient (BNVA) | payer OTHER, SELFPAY | PROVIDERS: PCP Internal Medicine; Visit Provider Nurse Practitioner | DX: Z01.818 Encounter for other preprocedural examination (principal); K21.9 Gastro-esophageal reflux disease without esophagitis; K58.0 Irritable bowel syndrome with diarrhea; K26.9 Duodenal ulcer, unspecified as acute or chronic, without hemorrhage or perforation; J45.909 Unspecified asthma, uncomplicated | CPT/HCPCS: 99212 ==

== ENCOUNTER 2025-02-02 08:51 | Outpatient (REF) | payer OTHER, SELFPAY ==
--- OUTSIDE RECORDS SUMMARY | 2025-02-02 08:53 | XMS_ITS | Clinical Summary ---
Author Organization [facility] Address [address] [place] [address] Care Team Providers Care Solution Design And Analysis Manager Name Role Phone Afua Oakley PA-C Primary Care Provider [phone] [phone] Source Comments PLEASE NOTE, if this patient [...] mcg/actuation inhalerIndicatio ns:Mild intermittent asthma without complication ([facility]) Inhale 2 Puffs into the lungs every 4 (four) hours as needed for wheezing. 18 g 3 6 Active predniSONE (DELTASONE) 10 mg tabletIndication s:Mild intermittent asthma without complication ([facility]) 0 6 Active clotrimazole (LOTRIMIN) 1 % creamIndications :Tinea pedis of both feet Apply topically 2 (two) times daily. 15 g 0 6 Active gabapentin (NEURONTIN) 300 mg capsuleIndicatio ns:neuropathic pain Take 1 Cap by mouth 3 (three) times daily. Indications: Neuropathic Pain 90 Cap 3 6 Active citalopram (CELEXA) 20 mg tabletIndication s:depression associated with bipolar disorder,rxed by the medical center. looking for new Take 0.5 Tabs by mouth once daily. Indications: DEPRESSION ASSOCIATED WITH BIPOLAR DISORDER, rxed by the medical center. looking for new 15 Tab 3 6 Active lancets (FREESTYLE LANCETS) 28 gauge Dx. E11.9 checks once daily 100 Each 3 6 Active metFORMIN (GLUCOPHAGE) 500 mg tabletIndication s:Controlled type 2 diabetes mellitus without complication, without long-term current use of insulin ([facility]) take 1 tablet by mouth twice a day with A MEAL 10 Tab 0 7 Active Active Problems Problem Noted Date Diagnosed Date Fibroid 10/15/2015 Overview (10/15/2015): Planning pelvic next visit Colon cancer screening/repea t in 10yr, aug-2025/ HAD EGD ALSO, await bx path 09/05/2015 Overview (09/18/2015): 08/26/15 [facility] [phone], Dr. Arnold Plaza MD, had upper GI [...] H/O bone density study 08/14/2015 Overview (08/14/2015): [facility] 06/02/15 Normal DUB (dysfunctional uterine bleeding) 08/14/2015 Overview (08/14/2015): Has ablation in 2007, 09/19/14: Pelvic u/s + sm fibroid,ovaries normal, + nabothian cyst 04/05/11: Normal Pelvic u/s 12/14/07: pelvic U/s 1.8 cm right ovarian cyst, thick endometrium, without focal endo metrium. No fibroid, otherwise normal History of EKG 08/14/2015 Overview (08/14/2015): [facility] 02/07/08 NSR Encounter for gynecological examination 08/13/19 16 Overview (08/13/2015): Normal exam, the pt had a ablation done for fibroid, in 2007 Hematuria, microscopic 04/17/2015 Overview (04/17/2015): Renal U/s normal [facility] 04/11/15. Kidneys are normal. No mass/stone/or obstruction noted. Right uretal jet WNL, left not seen Injury of right toe 04/17/2015 Overview (04/17/2015): [facility] 04/04/15 neg for fx Disability examination 12/20/2014 Overview (12/20/2014): rec form form SSI, pt req disability, sent to [facility] person 12/20/14 Trigger middle finger of left hand 11/18/2014 Overview (12/12/2014): [facility] 11/25/14: Plan flexor tenosynovectomy Has surg planned 12/13 Breast cancer screening/ 11/12/14 birad -2 2014 Overview (08/14/2015): [facility] birad-s 2 11/12/14 10/18/13 birad 2 10/12/12 birads 2 06/03/10 birad 2 03/20/09: eduar Barcenas 1 Diabetes type 2, controlled (CMS & HHS-HCC) 07/2014 Overview (06/23/2015): Lab Results Component Value Date [...] 0.4 12/10/2014 Eye doc: [facility] #[id number] Lab Results Component Value Date HGBA1C 6.2 02/25/2015 Perfect! On metformin 500 bid 04/08/15 signed form for home diabetic supplies through [facility] Lab Results Component Value Date HGBA1C [...] 125* 06/23/2015 increaseing to zocor Jun Asthma ([facility]) Overview (10/18/2014): controlled with flovent 110 Peak flow 605!! ( expected 357) (360,605,330): not used flovent rarely, once weekly. Pain Overview (10/18/2014): muscle spasm LBP: refer to PT 09/13/14. Ed on stretching given/heat massage: gabapentin once daily the therapy is improving LBP (low back pain) Overview (10/23/2014): rad to leg sciata also never had PT: [facility]. 09/13/14 film ordered, and refer to PT [facility] 09/27/14: Disc space narrowing L5-S1 which has progressed from last exam. No fx or sublux: pt aware of result Pt notes rec [facility] [phone] PT form signed 10/23/14 for cont therapy Depressive disorder, not elsewhere classified Overview (08/23/2014): not in conseling: by willing to try Resolved Problems Problem Noted Date Diagnosed Date Resolved Date H/O bone density study/normal Jun 02, 2015 06/14/201506/1406/14/2015 Overview (08/19/2015): bmd done NORMAL 06/02/15 [facility]; done secondary to metabolic bone disease, post menopausal [address] [address] A Member of [facility] Patient: SPRING NICKERSON : 1965 Age: 50 Gender: F Account: [id number] Report: [facility] Dexa Axial Skeleton Ordered By: SOPHY OATES MD Date: 06/02/2015 3:29:09 PM Status: F DEXA (dual-energy x-ray absorptiometry) 87688 History: Metabolic bone disease. Post menopausal estrogen deficiency. Technique: Bone densitometry was performed utilizing dual energy x-ray absorptiometry (DEXA). The lumbar spine is evaluated in the AP projection at L3 and L4. L1 and L2 were omitted because of excessive sclerosis. The proximal femora are evaluated in the AP projection bilaterally. There are no prior studies available for direct comparison at this institution. Findings: AP spine: Bone mineral density: 1.189 gm/cm2 T-score: -0.1 Femoral total (mean, bilateral): Bone mineral density: 1.079 gm/cm2 T-score: 0.6 IMPRESSION: Findings suggesting normal bone mineral density. 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 on file Not on file Not on file Last Filed Vital Signs Vital Sign Reading Time Taken Comments Blood Pressure 102/78 10/15/2015 1:08 PM EDT Pulse 86 10/15/2015 1:08 PM EDT Temperature 36.8 C (98.2 F) 10/15/2015 1:08 PM EDT Respiratory Rate 12 10/15/2015 1:08 PM EDT Oxygen Saturation 98% 10/18/2014 11:02 AM EDT Inhaled Oxygen Concentration - - Weight 64.9 kg (143 lb) 10/15/2015 1:08 PM EDT Height 160 cm (5' 3 ) 06/26/2015 9:05 AM EST Body Mass Index 25.33 06/26/2015 9:05 AM EST Plan of Treatment Not on file Insurance [facility] Member Subscriber Plan / Payer (Ef fective 2014-Present) Name:Krishan, Spring Relation to Subscriber:Self Name:Spring Nickerson Payer ID:[id number] Group ID:Not on file Type:Medicaid Address: [facility] [id number] [place] [address] Care Teams Solution Design And Analysis Manager Relationship Specialty Start Date End Date Afua Oakley PA-C [facility] [place] [address] PCP - General 09/19/18
--- OUTSIDE RECORDS SUMMARY | 2025-02-02 08:53 | XMS_ITS | Clinical Summary ---
Author Organization [address] [facility] Address [address] [place] [address] Phone Care Team Providers Care Senior Media Buyer Name Role Phone Jocelyne Bravo MD Primary Care Provider [phone] Allergies Active Allergy Reactions Criticality Noted Date Comments Prednisone Nausea And Vomiting 11/20/2024 Medications traZODone (DESYREL) 50 mg tablet at bedtime as needed. 9 Active ibuprofen (ADVIL,MOTRIN) 800 mg tablet Take 1 tablet (800 mg total) by mouth 2 (two) times a day. Active clotrimazole-be tamethasone (LOTRISONE) 1-0.05 % cream Apply a small amount to the affected areas of vulva twice daily as needed for itching/irrit ation. May use for up to 14 days. 9 Active metFORMIN (GLUCOPHAGE) 1,000 mg tablet Take 1 tablet (1,000 mg total) by mouth 2 (two) times a day with meals. Active albuterol HFA (PROAIR HFA ; PROVENTIL HFA ; VENTOLIN HFA) 90 mcg/actuation inhaler Inhale 2 puffs by mouth every 4 (four) hours if needed. Active GABAPENTIN ORAL Take 300 mg by mouth 3 (three) times a day. Active butalb/acetamin ophen/caffeine (FIORICET ORAL) Take by mouth. Active citalopram (CeleXA) 10 mg tablet Take 2 tablets (20 mg total) by mouth 1 (one) time each day. Active acetaminophen (Tylenol 8 Hour) 650 mg 8 hr tablet Take 1 tablet (650 mg total) by mouth every 8 (eight) hours if needed for mild pain. Do not crush, chew, or split. 90 tablet 5 01/06/20 25 ibuprofen (ADVIL,MOTRIN) 800 mg tablet Take 1 tablet (800 mg total) by mouth 3 (three) times a day. 90 each 5 01/06/20 25 Active Problems Problem Noted Date Diagnosed Date Gastroesophageal reflux disease without esophagi tis 12/07/2024 Asthma 12/07/2024 Arthritis 12/06/2024 Right carpal tunnel syndrome 02/04/2023 Trigger little finger of right hand 02/04/2023 Depression 08/10/2018 Diabetes ([facility] V24, [facility] V28) 08/10/2018 Hyperlipidemia 08/10/2018 Resolved Problems Problem Noted Date Diagnosed Date Resolved Date Bunion, left 08/13/2024 12/07/2024 Encounters Date Type Department Care Team Description 01/17/2025 1:15 PM EDT Office Visit Orthopedic Surgery [address] [phone] Kayden Rivera DPM Post-operative state (Primary Dx) 12/20/2024 1:00 PM EDT Office Visit Orthopedic [address] [phone] Kayden Rivera DPBautista Post-operative state (Primary Dx) 12/07/2024 7:32 AM EDT Anesthesia Event [facility] [place] [address] [place] [phone] Bianca Howard MD 12/07/2024 7:30 AM EDT - 12/07/2024 9:00 AM EDT Surgery [facility] [place] [address] [place] [phone] Kayden Rivera DPBautista LEFT BUNIONECTOMY [94470 (CPT )] 12/07/2024 6:30 AM EDT - 12/07/2024 9:20 AM EDT Hospital Encounter [facility] [place] [address] [place] [phone] Kayden Rivera DPM Bunion, left (Primary Dx) Discharge Disposition: Home or Self Care 11/27/2024 Telephone Orthopedic Surgery [facility] [address] [phone] BriDori Ferrara 11/12/2024 1:45 PM EDT Office Visit Orthopedic Surgery [facility] [address] [phone] Kayden Rivera DPM Controlled type 2 diabetes with neuropathy (CMS/HCC V24, [facility] V[facility]) (Primary Dx); Pain in left foot from Last 3 Months Surgical History Surgery Date Site/Laterality Comments TUBAL LIGATION PROCEDURE: HISTORICAL TUBAL LIGATION COLONOSCOPY PROCEDURE: HISTORICAL COLONOSCOPY CARPAL TUNNEL RELEASE Bilateral ENDOMETRIAL ABLATION 07/25/2007 - 07/24/2008 Medical History Medical History Date Comments DM (diabetes mellitus) with complications (CMS/HCC V24, [facility] V28) DX:DM (diabetes mellitus) w ith complications (HCC) Hyperlipidemia DX:Hyperlipidemi a Depression DX:Depression Arthritis DX:Arthritis Asthma GERD (gastroesophageal reflux disease) Anemia Joint pain Fractures Family History Medical History Relation Name Comments Stomach cancer Father Breast cancer Other Uterine cancer Sister Colon cancer Neg Hx Ovarian cancer Neg Hx Pancreatic cancer Neg Hx Prostate cancer Neg Hx Relation Name Status Comments Father Other Sister Alive Social History Tobacco Use Types Packs/Day Years Used Date Smoking Tobacco: Former Cigarettes Smokeless Tobacco: Never Tobacco Cessation:Counseling Given: Not Answered Alcohol Use Standard Drinks/Week Comments No 0 (1 standard drink = 0.6 oz pur e alcohol) Interpersonal Safety Answer Date Record ed Physical Abuse 12/07/2024 Verbal Abuse 12/07/2024 Comments No Sex and Gender Information Value Date Recorded Sex Assigned at Not on file Legal Sex Female 5:48 PM EST Gender Identity Not on file Sexual Orientation Not on file Obstetrics History Last Filed Vital Signs Vital Sign Reading Time Taken Comments Blood Pressure 108/81 12/07/2024 8:54 AM EDT Pulse 74 12/07/2024 8:54 AM EDT Temperature 36.1 C (97 F) 12/07/2024 8:32 AM EDT Respiratory Rate 16 12/07/2024 8:54 AM EDT Oxygen Saturation 100% 12/07/2024 8:54 AM EDT Inhaled Oxygen Concentration - - Weight 62.6 kg (138 lb) 01/17/2025 12:55 PM EDT Height 160 cm (5' 2.99 ) 01/17/2025 12:55 PM EDT Body Mass Index 24.45 01/17/2025 12:55 PM EDT Plan of Treatment Upcoming Encounters Date Type Department Care Team (Late st Contact Info) Description 02/11/2025 10:00 AM EDT Office Visit Orthopedic Surgery - [place] [address] [phone] Kayden Rivera, CHAD [address] [address] Health Maintenance Due Date Last Done Comments [...] (2 of 2) 04/04/2024 02/08/2024 Influenza Vaccine (#1) 2025 3, 05/17/2022, 06/17/2021, Additional history exists DTaP,Tdap,and Td [...] on patient's age to complete this topic Medical Devices Implanted Type Area Accounting Tutor Device Identifier Shelf Expiration Date Model / Serial / Lot Kit Reamer Minibunion - Sn/A - [id number] Implanted:Qty: 1 on 12/07/2024 by Kayden Rivera DPM at [facility] Internal and External Fixation Left: First Toe [employer] DEPU[employer] [id number] 01/10/2028 3100-000 1 / N/A / [id number] Kit Instrument Minibunion - Sn/A - [id number] Implanted:Qty: 1 on 12/07/2024 by Kayden Rivera DPM at [facility] Internal and External Fixation Left: First Toe [employer] DE[employer] [id number] 04/03/2028 3100-000 0 / N/A / [id number] Nail Minibunion Offset Short 3.5mm - Sn/A - [id number] Implanted:Qty: 1 on 12/07/2024 by Kayden Rivera DPM at [facility] Internal and External Fixation Left: First Toe [employer] [id number] 05/01/2028 3100-003 0 / N/A / [id number] Screw Non Lock Minibunion 2.7x14mm - Sn/A - [id number] Implanted:Qty: 1 on 12/07/2024 by Kayden Rivera DPM at [facility] Internal and External Fixation Left: First Toe [employer] [id number] 03/03/2025 3100-271 4NL / N/A / [id number] Screw Locking Minibunion 3x20mm - Sn/A - [id number] Implanted:Qty: 1 on 12/07/2024 by Kayden Rivera DPM at [facility] Internal and External Fixation Left: First Toe [employer] [id number] 12/28/2027 3100-302 0LK / N/A / [id number] Procedures Procedure Name Priority Date/Time Associated Diagnosis Comments XR FOOT 3+ VIEWS LEFT Routine 01/17/2025 1:00 PM EDT Post-operative state XR FOOT 3+ VIEWS LEFT Routine 12/20/2024 12:57 PM EDT Post-operative state XR FOOT 2 VIEWS LEFT Routine 12/07/2024 9:23 AM EDT OR CORRECTION HALLUX VALGUS WITH DISTAL METATARSAL OSTEOTOMY ANY METHOD 12/07/2024 7:31 AM EDT Bunion, left Case Notes MINI C-ARM, CONMED,CROSSROADS MINI BUNION POCT GLUCOSE BLOOD Routine 12/07/2024 6: 52 AM EDT HIV SCREENING Routine 09/07/2019 SCR MAMMO BI INCL CAD Routine 05/08/2019 1:52 PM EDT Encounter for screening mammogram for malignant neoplasm of breast DEPRESSION SCREENING Routine 08/10/2018 HPV Routine 01/04/2017 from Last 3 Months or Most Recently Relevant to Health Maintenance Results * XR Foot 3+ Views Left (01/17/2025 1:00 PM EDT) Only the most recent of2 resultswithin the time period is included. Anatomical Region Laterality Modality Lower Extremities, Foot Left Computed Radiography Narrative 01/17/2025 7:30 PM EDT Left foot 3 views nonweightbearing: Correction is maintained in good rectus alignment. Normal postoperative healing. Kayden Rivera DPBautista IMG XR PROCEDURES Final Res ult * XR Foot 2 Views Left (12/07/2024 9:23 AM EDT) Anatomical Region Laterality Modality Lower Extremities, Foot Left Radiogra phic Imaging 12/07/2024 9:24 AM EDT Impressions 12/07/2024 9:26 AM EDT Evidence of osteotomy and translation with instrumentation and fixation of the first metatarsal -------- FINAL REPORT -------- Dictated By: Rehan Buenrostro Dictated Date: 12/07/2024 09:24 ET Assigned Physician: Rehan Buenrostro Reviewed and Electronically Signed By: Rehan Buenrostro Signed Date: 12/07/2024 09:26 ET Workstation ID: [id number] Transcribed By: Self Edit Transcribed Date: 12/07/2024 09:24 ET Narrative 12/07/2024 9:26 AM EDT EXAMINATION: LEFT FOOT CLINICAL INFORMATION: Postop COMPARISON: None. TECHNIQUE: Portable frontal and lateral views of the left foot FINDINGS: There has been osteotomy and instrumentation of the first metatarsal. There are screws transfixing a plate along the medial aspect of the first metatarsal. There has been translation of the distal first metatarsal laterally. The proximal screw projects medial to the medial cortex. Procedure Note Rehan Buenrostro MD - 12/07/2024 EXAMINATION: LEFT FOOT CLINICAL INFORMATION: Postop COMPARISON: None. TECHNIQUE: Portable frontal and lateral views of the left foot FINDINGS: There has been osteotomy and instrumentation of the first metatarsal.There are screws transfixing a plate along the medial aspect of the firstmetatarsal. There has been translation of the distal first metatarsal laterally. Theproximal screw projects medial to the medial cortex. IMPRESSION: Evidence of osteotomy and translation with instrumentation and fixation ofthe first metatarsal -------- FINAL REPORT -------- Dictated By: Rehan Buenrostro Dictated Date: 12/07/2024 09:24 ET Assigned Physician: Rehan Buenrostro Reviewed and Electronically Signed By: Rehan Buenrostro Signed Date: 12/07/2024 09:26 ET Workstation ID: [id number] Transcribed By: Self Edit Transcribed Date: 12/07/2024 09:24 ET Kayden Rivera DPM IMG XR PROCEDURES Final Res ult * (ABNORMAL) POCT Glucose, blood (12/07/2024 6:52 AM EDT) Glucose POCT 132(H) 70 - 100 mg/dL 12/07/2024 6:52 AM EDT [facility] Blood Capillary blood specimen / Unknown 12/07/2024 6:52 AM EDT 12/07/2024 6:53 AM EDT Kayden Rivera DPM LAB POINT OF CARE T EST DOCKED DEVICE UNSOLICITED RESULTS Final Result [facility] [address] [place] [address], * HIV Screening (09/07/2019) HIV Screening Abstracted Historical Provider HEALTH MAINTENANCE Final [...] with the aid of computer-aided detection. Comparison is made with 05/22/2018 and as far back as 10/18/2013. Breast parenchyma is heterogeneously dense, limiting mammographic sensitivity. No worrisome interval change in numerous bilateral calcifications. [...] Resul t * Depression Screening (08/10/2018) Pathologist [facility] Depression Screening Abstracted Nazario Provider HEALTH MAINTENANCE Final Result * Cervical Cancer Screening: HPV (01/04/2017) Pathologist [facility] Cervical Cancer Screening: HPV Abstracted, Negative Nazario Pryor MD HEALTH MAINTENANCE Final Result from Last 3 Months or Most Recently Relevant to Health Maintenance Insurance [facility] Advance Directives Documents on File Type Date Recorded Patient Screener Perfumer Expl anation Health Care Decision (hx) 08/10/2019 [...] Care Decision (hx) 08/10/2019 AD CURRAN DIRECTIVE * Full Code - Default (Latest Code Status on File) Date Activated Date Inactivated Comments 12/07/2024 7:02 AM 12/07/2024 11:31 AM This is ord er is used when code status has not been discussed with the patient, or code status is otherwise unknown/unconfirmed To update the patient's code status, place a code status order. Do not modify or discontinue any currently active code status orders. Care Teams Senior Media Buyer Relationship Specialty Start Date End Date Jocelyne Bravo MD [address] [facility] [place] [address] PCP - General 04/30/24
[2025-02-02 11:50] LABS: Hemoglobin A1C 143.8060 umol/L; Total Hemoglobin (HGBA1C) 3011.3283 umol/L
[2025-02-02 11:59] LABS: Alanine Aminotransferase 21 U/L (0-31); Anion Gap 13 (12-20); Aspartate Amino Transferase 23 U/L (5-31); Blood Urea Nitrogen 20 mg/dL (9-16); Calcium 9.3 mg/dL (8.4-10.2); Carbon Dioxide 22 mmol/L (22-29); Chloride 111 mmol/L (96-108); Cholesterol 174 mg/dL (<200); Estimated Glomerular Filt Rate > 60; HDL Cholesterol 45 mg/dL (>40); Potassium 4.0 mmol/L (3.3-5.1); Sodium 142 mmol/L (135-145); Triglycerides 144 mg/dL (<150)
[2025-02-02 12:00] LABS: Microalbum/Creatinine Ratio Ur 8.0 ug/mg cr (<30)
--- OUTSIDE RECORDS SUMMARY | 2025-03-22 20:00 | XMS_ITS | Clinical Summary ---
Author Organization Unknown Care Team Providers Care Deoiling Machine Operator Name Role Phone ADIEL BAÑUELOS, OTTO FAJARDO Unavailable Unavaileli PEDERSON RN, SUN Unavailable Unavailable Payers Payer Name Policy Type Policy Number Effective Date Expira tion Date [facility] ([facility] [id number] MEDICAID [facility] [id number] Problems Condition Name Condition Details Condition Category Status Onset Date Resolution Date Last Treatment Date Treating Clinician Comments TYPE 2 DIABETES MELLITUS WITH DIABETIC NEUROPATHY, UNSP Active 01-17 00:00: 00 Allergies, Adverse Reactions, Alerts Allergy Name Allergy Type Status Severity Reaction(s) Onset Date Inactive Date Treating Clinician Comments NKA Propensity to adverse reactions Active 2025-01 08:45:3 2 Immunizations Ordered Immunization Name Filled Immunization Name Date Status Comments Refusal Reason REFUSED FLU, PPV 2025-01-23 00:00:00 Vital Signs Vital Name Observation Time Observation Value Commen ts Temperature 2025-02-01 12:16:00.000 98.6 [degF] Temperature 2025-01-30 16:19:00.000 98.6 [degF] Temperature 2025-01-29 21:46:00.000 98.6 [degF] Temperature 2025-01-23 09:05:00.000 98.6 [degF] BMI (%) 2025-01-23 09:05:00.000 23 kg/m2 Height 2025-01-23 09:05:00.000 63 [in_us] Pulse 2025-02-01 12:16:00.000 82 /min Pulse 2025-01-30 16:19:00.000 72 /min Pulse 2025-01-29 21:46:00.000 82 /min Pulse 2025-01-23 09:05:00.000 82 /min Respirations 2025-02-01 12:16:00.000 20 /min Respirations 2025-01-30 16:20:00.000 20 /min Respirations 2025-01-29 21:46:00.000 20 /min Respirations 2025-01-23 09:05:00.000 20 /min Weight (lbs) 2025-01-23 09:05:00.000 135 [lb_av] Systolic Blood Pressure 2025-02-01 12:16:00.000 116 mm [Hg] Systolic Blood Pressure 2025-01-30 16:19:00.000 128 mm [Hg] Systolic Blood Pressure 2025-01-29 21:46:00.000 142 mm [Hg] Systolic Blood Pressure 2025-01-23 09:05:00.000 128 mm [Hg] Diastolic Blood Pressure 2025-02-01 12:16:00.000 72 mm [Hg] Diastolic Blood Pressure 2025-01-30 16:19:00.000 78 mm [Hg] Diastolic Blood Pressure 2025-01-29 21:46:00.000 82 mm [Hg] Diastolic Blood Pressure 2025-01-23 09:05:00.000 82 mm [Hg] Plan of Treatment Planned Activity Planned Date Details Comments Future Scheduled Test SKILLED NU RSE TO EVALUATE PATIENT, IDENTIFY PRIMARY AND CO-MORBID CONDITIONS CODED PER CODING GUIDELINES, AND DEVELOP PATIENT SPECIFIC PLAN OF CARE THAT INCLUDES PATIENT GOAL FOR HOME HEALTH. [code = SKILLED NURSE TO EVALUATE PATIENT, IDENTIFY PRIMARY AND CO-MORBID CONDITIONS CODED PER CODING GUIDELINES, AND DEVELOP PATIENT SPECIFIC PLAN OF CARE THAT INCLUDES PATIENT GOAL FOR HOME HEALTH.] Future Scheduled Test SKILLED NU RSE TO PERFORM HOME SAFETY AND FALL ASSESSMENT AND PROVIDE INSTRUCTION TO IMPLEMENT HOME SAFETY AND FALL PREVENTION STRATEGIES. [code = SKILLED NURSE TO PERFORM HOME SAFETY AND FALL ASSESSMENT AND PROVIDE INSTRUCTION TO IMPLEMENT HOME SAFETY AND FALL PREVENTION STRATEGIES.] Future Scheduled Test SKILLED NU RSE FOR OBSERVATION AND ASSESSMENT OF PATIENTS PAIN LEVEL AND EFFECTIVENESS OF PAIN MANAGEMENT REGIMEN. SKILLED NURSE TO INSTRUCT PATIENT/CAREGIVER REGARDING PHARMACOLOGIC AND NON-PHARMACOLOGIC PAIN CONTROL MEASURES. SKILLED NURSE TO REPORT TO PHYSICIAN IF PAIN IS UNCONTROLLED WITH CURRENT PAIN MANAGEMENT REGIMEN. [code = SKILLED NURSE FOR OBSERVATION AND ASSESSMENT OF PATIENTS PAIN LEVEL AND EFFECTIVENESS OF PAIN MANAGEMENT REGIMEN. SKILLED NURSE TO INSTRUCT PATIENT/CAREGIVER REGARDING PHARMACOLOGIC AND NON-PHARMACOLOGIC PAIN CONTROL MEASURES. SKILLED NURSE TO REPORT TO PHYSICIAN IF PAIN IS UNCONTROLLED WITH CURRENT PAIN MANAGEMENT REGIMEN.] Future Scheduled Test SKILLED NU RSE TO REVIEW PATIENT MEDICATIONS. INSTRUCT PATIENT/CAREGIVER ON MONITORING OF EFFECTIVENESS, ADVERSE DRUG REACTIONS, SIDE EFFECTS OF ALL MEDICATIONS (PRESCRIPTION/-OTC), AND HOW AND WHEN TO REPORT PROBLEMS. [code = SKILLED NURSE TO REVIEW PATIENT MEDICATIONS. INSTRUCT PATIENT/CAREGIVER ON MONITORING OF EFFECTIVENESS, ADVERSE DRUG REACTIONS, SIDE EFFECTS OF ALL MEDICATIONS (PRESCRIPTION/-OTC), AND HOW AND WHEN TO REPORT PROBLEMS.] Future Scheduled Test SKILLED NU RSE TO PRE-POUR MEDICATION PER MEDICATION LIST [code = SKILLED NURSE TO PRE-POUR MEDICATION PER MEDICATION LIST ] Future Scheduled Test SKILLED NU RSE TO INSTRUCT PATIENT/CAREGIVER ON ANXIETY MANAGEMENT UTILIZING THE MINDFUL CARE SPECIALTY PROGRAM. [code = SKILLED NURSE TO INSTRUCT PATIENT/CAREGIVER ON ANXIETY MANAGEMENT UTILIZING THE MINDFUL CARE SPECIALTY PROGRAM.] Future Scheduled Test SKILLED NU RSE TO ASSESS PATIENTS PSYCHOSOCIAL STATUS TO IDENTIFY POTENTIAL ISSUES THAT MAY COMPLICATE THE PROVISION OF THE PLAN OF CARE INCLUDING THE PATIENTS ABILITY TO ACCESS COMMUNITY RESOURCES AND PSYCHOSOCIAL SUPPORT SERVICES. [code = SKILLED NURSE TO ASSESS PATIENTS PSYCHOSOCIAL STATUS TO IDENTIFY POTENTIAL ISSUES THAT MAY COMPLICATE THE PROVISION OF THE PLAN OF CARE INCLUDING THE PATIENTS ABILITY TO ACCESS COMMUNITY RESOURCES AND PSYCHOSOCIAL SUPPORT SERVICES.] Future Scheduled Test SKILLED NU RSE WILL MAINTAIN SITUATIONAL AWARENESS FOR SAFETY AND WILL NOTIFY CLINICAL ETHYLBENZENE CRACKING SUPERVISOR AND PHYSICIAN/PROVIDER WITH ANY CHANGE IN CONDITION. [code = SKILLED NURSE WILL MAINTAIN SITUATIONAL AWARENESS FOR SAFETY AND WILL NOTIFY CLINICAL ETHYLBENZENE CRACKING SUPERVISOR AND PHYSICIAN/PROVIDER WITH ANY CHANGE IN CONDITION.] Future Scheduled Test SKILLED NU RSE FOR O/A OF ALTERED MOOD [code = SKILLED NURSE FOR O/A OF ALTERED MOOD] Future Scheduled Test SKILLED NU RSE FOR O/A OF CLIENT'S SLEEP PATTERNS. MAY TEACH INTERVENTIONS R/T ACQUIRING IMPROVED REST [code = SKILLED NURSE FOR O/A OF CLIENT'S SLEEP PATTERNS. MAY TEACH INTERVENTIONS R/T ACQUIRING IMPROVED REST] Future Scheduled Test SKILLED NU RSE FOR O/A OF CLIENT'S CURRENT DEGREE OF HOPELESSNESS AND PROVIDE THERAPEUTIC INTERVENTIONS AND TEACHING DESIGNED TO ENHANCE THE CLIENT'S WELL BEING. [code = SKILLED NURSE FOR O/A OF CLIENT'S CURRENT DEGREE OF HOPELESSNESS AND PROVIDE THERAPEUTIC INTERVENTIONS AND TEACHING DESIGNED TO ENHANCE THE CLIENT'S WELL BEING.] Future Scheduled Test SKILLED NU RSE FOR O/A AND TEACHING OF ENDOCRINE SYSTEM TO IDENTIFY CHANGES ASSOCIATED WITH EXACERBATION FOR EARLY INTERVENTION OF COMPLICATIONS. [code = SKILLED NURSE FOR O/A AND TEACHING OF ENDOCRINE SYSTEM TO IDENTIFY CHANGES ASSOCIATED WITH EXACERBATION FOR EARLY INTERVENTION OF COMPLICATIONS.] Future Scheduled Test SKILLED NU RSE FOR O/A AND TEACHING OF DIABETIC MANAGEMENT INCLUDING BLOOD SUGAR MONITORING/USE OF GLUCOMETER, DIABETIC DIET, LOWER EXTREMITY SKIN INSPECTION, PROPER SKIN/FOOT CARE, AND SIGNS AND SYMPTOMS HYPO/HYPERGLYCEMIA TO REPORT. [code = SKILLED NURSE FOR O/A AND TEACHING OF DIABETIC MANAGEMENT INCLUDING BLOOD SUGAR MONITORING/USE OF GLUCOMETER, DIABETIC DIET, LOWER EXTREMITY SKIN INSPECTION, PROPER SKIN/FOOT CARE, AND SIGNS AND SYMPTOMS HYPO/HYPERGLYCEMIA TO REPORT.] Future Scheduled Test SKILLED NU RSE FOR O/A OF MUSCULOSKELETAL STATUS AND TEACHING ON MEASURES TO MANAGE MUSCULOSKELETALPAIN TO MAINTAIN SAFETY WITH ACTIVITY [code = SKILLED NURSE FOR O/A OF MUSCULOSKELETAL STATUS AND TEACHING ON MEASURES TO MANAGE MUSCULOSKELETALPAIN TO MAINTAIN SAFETY WITH ACTIVITY] Goal Patient Goal - I WANT TO GET BETTER NOT FEAR FALLING AGAIN. Goal Provider Goal - A PLAN OF CARE WILL BE ESTABLISHED THAT MEETS PATIENT'S [facility] NEEDS AND INCLUDES PATIENT GOAL FOR HOME HEALTH. Goal Provider Goal - PATIENT/CAREGIVER WILL VERBALIZE/DEMONSTRATE EFFECTIVE HOME SAFETY AND FALL PREVENTION STRATEGIES THROUGHOUT CERTIFICATION PERIOD. Goal Provider Goal - PATIENT/CAREGIVER WILL DEMONSTRATE UNDERSTANDING OF PHARMACOLOGIC AND NONPHARMACOLOGIC PAIN CONTROL MEASURES AND PATIENT WILL HAVE IMPROVEMENT IN PAIN INTERFERING WITH ACTIVITY EVIDENCED BY PAIN AT A LEVEL THAT IS ACCEPTABLE TO THE PATIENT AND PAIN LEVEL WITHIN ESTABLISHED PARAMETERS BY END OF CERTIFICATION PERIOD. Goal Provider Goal - PATIENT/CAREGIVER WILL VERBALIZE UNDERSTANDING OF EDUCATION PROVIDED ON MEDICATIONS BY THE END OF THE CERTIFICATION PERIOD. Goal Provider Goal - PATIENT WILL COMPLY WITH MEDICATION WHEN SKILLED NURSE PRE-POURS MEDICATION THROUGHOUT CERTIFICATION PERIOD. Goal Provider Goal - PATIENT WILL VERBALIZE DECREASED ANXIETY LEVEL THROUGHOUT CERTIFICATION PERIOD A RESULT OF PARTICIPATION IN THE MINDFUL CARE SPECIALTY PROGRAM. Goal Provider Goal - PSYCHOSOCIAL NEEDS WILL BE IDENTIFIED AND PLAN IMPLEMENTED TO MINIMIZE RISK THROUGHOUT CERTIFICATION PERIOD. Goal Provider Goal - PATIENT WILL REMAIN SAFE IN THE COMMUNITY AND WILL BE FREE OF DANGER TO SELF AND OTHERS THROUGHOUT THE CERTIFICATION PERIOD. Goal Provider Goal - PATIENT WILL BE ABLE TO PERFORM DAILY FUNCTIONS AND HAVE OPTIMAL IMPROVEMENT IN MOOD STABILITY THROUGHOUT CERTIFICATION PERIOD. Goal Provider Goal - PATIENT WILL REPORT AT LEAST 6-8 HOURS A NIGHT, RESTFUL SLEEP PATTERNS ACHIEVED USING THERAPEUTIC INTERVENTIONS BEFORE THE END OF THE CERTIFICATION PERIOD. Goal Provider Goal - PATIENT WILL VERBALIZE OWN ASSOCIATION OF FEELINGS OF HOPELESSNESS, AND 3 THERAPEUTIC TECHNIQUES TO DECREASE THESE FEELINGS BY THE END OF THIS CERTIFICATION. Goal Provider Goal - PATIENT/CAREGIVER WILL VERBALIZE SIGNS AND SYMPTOMS OF EXACERBATION OF HYPO HYPERGLYCEMIA REPORT TO NURSE/PHYSICIAN THROUGHOUT THE CERTIFICATION PERIOD. Goal Provider Goal - PATIENT/CAREGIVER WILL VERBALIZE/DEMONSTRATE KNOWLEDGE OF DIABETIC MANAGEMENT. CHANGES IN DIABETIC STATUS WILL BE IDENTIFIED AND REPORTED TO PHYSICIAN FOR PROMPT INTERVENTION THROUGHOUT THE CERTIFICATION PERIOD. Goal Provider Goal - PATIENT/CAREGIVER WILL VERBALIZE/DEMONSTRATE ABILITY TO MANAGE PAIN TO MUSCULOSKELETAL SYSTEM WHILE MAINTAINING SAFETY THROUGHOUT THE EPISODE. Progress Notes Progress Notes <paragraph>[Visit Date: 2024 by SUN PEDERSON RN]:</paragraph><paragraph>SN VISIT (02/01/2025)PATIENT PRESENTS ALERT ORIENTED X3 SPHERES. MOOD FACIALLY DEPRESSED ANXIOUS POOR ATTENTION SPAN,SN SUICIDE ASSESSMENT CONTRACTS FOR SAFETY DENIED HAVING ANY SUICIDAL OR HOMICIDAL PLANS DURING VISIT. SN REMINDED PATIENT REGARDING HER APPOINTMENT WITH PCP ON 02/12/2025..SN OBSERVED AND ASSESSED LEFT FOOT LATERAL PEDAL SITE OF HEALED SURGICAL INCISION, NO SIGNS AND SYMPTOMS OF INFECTION. PATIENT REPORTED LEFT GREAT TOE NUMBNESS DECREASED.SN TEACHING IMPORTANCE OF SECURING SAFETY WHILE PERFORMING ADLS.</paragraph> <paragraph>[Visit Date: 2024 by SUN PEDERSON RN]:</paragraph><paragraph>SN VISIT (01/30/2025)PATIENT PRESENTS ALERT ORIENTED X3 SPHERES. MOOD FACIALLY DEPRESSED ANXIOUS POOR ATTENTION SPAN,SN SUICIDE ASSESSMENT CONTRACTS FOR SAFETY DENIED HAVING ANY SUICIDAL OR HOMICIDAL PLANS DURING VISIT. PATIENT WAS NOT HOME EARLIER TODAY, SN SAW PATIENT AFTER SECOND ATTEMPT.SN OBSERVED AND ASSESSED LEFT FOOT LATERAL PEDAL THE SITE OF HEALED SURGICAL INCISION, NO SIGNS AND SYMPTOMS OF INFECTION. PATIENT REPORTED LEFT GREAT TOE NUMBNESS DECREASED FROM LAST VISIT. SN CALLED PCP, PATIENT WILL BE SEEN 02/12/2025, SN REQUESTED A TOILET SEAT, HAVING DIFFICULTIES BEARING WEIGHT LOW LEVEL TOILET. PCP AGREES TO SN MEDICATION MANAGEMENT BYT ASKED ORTHOPEDIC SURGEON TO ORDER PT AND OT. SERVICES. SN TEACHING NONPHARMACOLGICAL PAIN RELIEF MEASURES.</paragraph> <paragraph>[Visit Date: 2024 by SUN PEDERSON RN]:</paragraph><paragraph>PATIENT PRESENTS ALERT ORIENTED X3 SPHERES. MOOD FACIALLY DEPRESSED ANXIOUS POOR ATTENTION SPAN, DID PROVIDE SOME EYE CONTACT, DENIED HAVING ANY SUICIDAL OR HOMICIDAL PLANS OR INTENTIONS DURING VISIT. PATIENT CONCERNS ABOUT NEED FOR PHYSICAL THERAPY, ASSURED A REFERRAL SENT TO HAVE PHYSICAL THERAPY TREATMENT. PATIENT LEFT FOOT LEFT LATERAL PEDAL SITE NEGATIVE SYMPTOMS OF INFECTION. PATIENT REPORTED IMPROVED SENSATION TO LEFT GREAT TOE, LAST WEEK HAD NUMBNESS. SN TEACHING SAFETY, FALL PREVENTION. PATIENT LACKS KNOWLEDGE OF IDENTIFIED DIAGNOSIS DISEASE PROCESS TREATMENT AND MANAGEMENT.</paragraph> Encounters Start Date/Time End Date/Time Encounter Type Admission Type Attending [facility] Department Encounter ID Discharge Date Discharge Status Discharge Condition Discharge Reason Percent Goals Met 2025-01-23 00:00:00 2025-03-23 00:00:00 Outpatient NEW ADMISSION SUN PEDERSON [facility] [id number] .00
== END 2025-02-02 08:52 | disposition home or self-care (01) ==
LOC: HO.HMGCLDS 08:51
PROVIDERS: PCP Internal Medicine; Visit Provider Internal Medicine
DX: I10 Essential (primary) hypertension (principal); E11.40 Type 2 diabetes mellitus with diabetic neuropathy, unspecified; E78.5 Hyperlipidemia, unspecified; K26.9 Duodenal ulcer, unspecified as acute or chronic, without hemorrhage or perforation
CPT/HCPCS: 36415; 80048; 80061; 82043; 82570; 83036; 84450; 84460

== ENCOUNTER 2025-02-12 08:53 | Outpatient (AMB) | payer OTHER, SELFPAY ==
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
--- OUTSIDE RECORDS SUMMARY | 2025-02-12 09:18 | XMS_ITS | Clinical Summary ---
Author Organization [facility] Address [address] [place] [address] Care Team Providers Care Contour Sander Name Role Phone Afua Oakley PA-C Primary Care Provider [phone] Source Comments PLEASE NOTE, if this patient [...] mcg/actuation inhalerIndicatio ns:Mild intermittent asthma without complication ([facility]) Inhale 2 Puffs into the lungs every 4 (four) hours as needed for wheezing. 18 g 3 6 Active predniSONE (DELTASONE) 10 mg tabletIndication s:Mild intermittent asthma without complication ([facility]) 0 6 Active clotrimazole (LOTRIMIN) 1 % creamIndications :Tinea pedis of both feet Apply topically 2 (two) times daily. 15 g 0 6 Active gabapentin (NEURONTIN) 300 mg capsuleIndicatio ns:neuropathic pain Take 1 Cap by mouth 3 (three) times daily. Indications: Neuropathic Pain 90 Cap 3 6 Active citalopram (CELEXA) 20 mg tabletIndication s:depression associated with bipolar disorder,rxed by [facility]. looking for new Take 0.5 Tabs by mouth once daily. Indications: DEPRESSION ASSOCIATED WITH BIPOLAR DISORDER, rxed by [facility]. looking for new 15 Tab 3 6 Active lancets (FREESTYLE LANCETS) 28 gauge Dx. E11.9 checks once daily 100 Each 3 6 Active metFORMIN (GLUCOPHAGE) 500 mg tabletIndication s:Controlled type 2 diabetes mellitus without complication, without long-term current use of insulin ([facility]) take 1 tablet by mouth twice a day with A MEAL 10 Tab 0 7 Active Active Problems Problem Noted Date Diagnosed Date Fibroid 10/15/2015 Overview (10/15/2015): Planning pelvic next visit Colon cancer screening/repea t in 10yr, aug-2025/ HAD EGD ALSO, await bx path 09/05/2015 Overview (09/18/2015): 08/26/15 [facility] [phone], Dr. Arnold Plaza MD, had upper GI [...] H/O bone density study 08/14/2015 Overview (08/14/2015): [facility] 06/02/15 Normal DUB (dysfunctional uterine bleeding) 08/14/2015 Overview (08/14/2015): Has ablation in 2007, 09/19/14: Pelvic u/s + sm fibroid,ovaries normal, + nabothian cyst 04/05/11: Normal Pelvic u/s 12/14/07: pelvic U/s 1.8 cm right ovarian cyst, thick endometrium, without focal endo metrium. No fibroid, otherwise normal History of EKG 08/14/2015 Overview (08/14/2015): [facility] 02/07/08 NSR Encounter for gynecological examination 08/13/19 16 Overview (08/13/2015): Normal exam, the pt had a ablation done for fibroid, in 2007 Hematuria, microscopic 04/17/2015 Overview (04/17/2015): Renal U/s normal [facility] 04/11/15. Kidneys are normal. No mass/stone/or obstruction noted. Right uretal jet WNL, left not seen Injury of right toe 04/17/2015 Overview (04/17/2015): [facility] 04/04/15 neg for fx Disability examination 12/20/2014 Overview (12/20/2014): rec form form SSI, pt req disability, sent to [facility] person 12/20/14 Trigger middle finger of left [...] 0.4 12/10/2014 Eye doc: [facility] #[id number] Lab Results Component Value Date HGBA1C 6.2 02/25/2015 Perfect! On metformin 500 bid 04/08/15 signed form for home diabetic supplies through [facility] Lab Results Component Value Date [...] 125* 06/23/2015 increaseing to zocor Jun Asthma ([facility]) Overview (10/18/2014): controlled with flovent 110 Peak [...] pt aware of result Pt notes rec [facility] [phone] PT form signed 10/23/14 for cont therapy Depressive disorder, not elsewhere classified Overview (08/23/2014): not in conseling: by willing to try Resolved Problems Problem Noted Date Diagnosed Date Resolved Date H/O bone density study/normal Jun 02, 2015 06/14/201506/1406/14/2015 Overview (08/19/2015): bmd done NORMAL 06/02/15 [facility]; done secondary to metabolic bone disease, post menopausal [address] [address] A Member of [facility] Patient: SPRING NICKERSON : 1965 Age: 50 Gender: F Account: [id number] Report: [facility] Dexa Axial Skeleton Ordered By: SOPHY OATES MD Date: 06/02/2015 3:29:09 PM Status: F DEXA (dual-energy x-ray absorptiometry) 32315 History: Metabolic bone disease. Post menopausal estrogen [...] IMPRESSION: Findings suggesting normal bone mineral density. 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
--- OUTSIDE RECORDS SUMMARY | 2025-02-12 09:18 | XMS_ITS | Clinical Summary ---
Author Organization [address] [facility] Address [address] [place] [address] Phone Care Team Providers Care Gaming Cashier Name Role Phone Jocelyne Bravo MD Primary Care Provider [phone] Allergies Active Allergy Reactions Criticality Noted Date Comments Prednisone Nausea And Vomiting 11/20/2024 Sulfa (Sulfonamide Antibiotics) 08/14/[address] Eubanks notes date 05/20/10 Medications traZODone (DESYREL) 50 mg tablet at bedtime as needed. 08/16/2018 Active ibuprofen (ADVIL,MOTRIN) 800 mg tablet [...] mouth 1 (one) time each day. Active cephalexin (KEFLEX) 500 mg capsule Take 1 capsule (500 mg total) by mouth every 12 (twelve) hours for 7 days. 14 each 02/11/2025 02/19/20 Active ibuprofen (ADVIL,MOTRIN) 800 mg tablet Take 1 tablet (800 mg total) by mouth 3 (three) times a day. 90 each 02/11/2025 03/13/20 25 Active Active Problems Problem Noted Date Diagnosed Date Gastroesophageal reflux disease without esophagi tis 12/07/2024 Asthma 12/07/2024 Arthritis 12/06/2024 Right carpal tunnel syndrome 02/04/2023 Trigger little finger of right hand 02/04/2023 Depression 08/10/2018 Diabetes ([facility] V24, [facility] V28) 08/10/2018 Hyperlipidemia 08/10/2018 Resolved Problems Problem Noted Date Diagnosed Date Resolved Date Bunion, left 08/13/2024 12/07/2024 Encounters Date Type Department Care Team Description 02/11/2025 10:00 AM EDT Office Visit Orthopedic Surgery [place] [address] [phone] Kayden Rivera, DPM Ingrown toenail of right foot (Primary Dx); Cellulitis of right foot; Left foot pain 01/17/2025 1:15 PM EDT Office Visit Orthopedic [address] [phone] Kayden Rivera DPM Post-operative state (Primary Dx) 12/20/2024 1:00 PM EDT Office Visit Orthopedic [place] [address] [phone] Kayden Rivera DPM Post-operative state (Primary Dx) 12/07/2024 7:32 AM EDT Anesthesia Event [facility] [place] [address] [place] [phone] Bianca Howard MD 12/07/2024 7:30 AM EDT - 12/07/2024 9:00 AM EDT Surgery [facility] [place] [address] [place] [phone] Nicole Kayden A, DPM LEFT BUNIONECTOMY [23353 (CPT )] 12/07/2024 6:30 AM EDT - 12/07/2024 9:20 AM EDT Hospital Encounter [facility] [place] [address] [place] [phone] Nicole Kayden A, DPM Bunion, left (Primary Dx) Discharge Disposition: Home or Self Care 11/27/2024 Telephone Orthopedic Surgery - [place] [address] [facility] [address] [place] [phone] Dori Gregory from Last 3 Months Surgical History Surgery Date Site/Laterality Comments TUBAL LIGATION PROCEDURE: HISTORICAL TUBAL LIGATION COLONOSCOPY PROCEDURE: HISTORICAL COLONOSCOPY CARPAL TUNNEL RELEASE Bilateral ENDOMETRIAL ABLATION 07/25/2007 - 07/24/2008 Medical History Medical History Date Comments DM (diabetes mellitus) with complications (CMS/HCC V24, CMS/HCC V28) DX:DM (diabetes mellitus) w ith complications [...] - - Weight 62.6 kg (138 lb) 02/11/2025 9:52 AM EDT Height 160 cm (5' 2.99 ) 02/11/2025 9:52 AM EDT Body Mass Index 24.45 02/11/2025 9:52 AM EDT Plan of Treatment Upcoming Encounters Date Type Department Care Team (Late st Contact Info) Description 03/21/2025 1:00 PM EDT Office Visit Orthopedic Surgery - [place] [address] [phone] Kayden Rivera, CHAD [address] [phone] Health Maintenance Due Date Last Done Comments [...] Panel) 06/26/2022 Colorectal Cancer Screening: Colonoscopy 06/26/2022 Hepatitis C Screening 06/26/2022 Social Influencers of Health Screening 06/26/2022 Diabetes: Annual Urine Albumin-Creatinine Ratio (uACR) 07/10/2022 Diabetes: Blood Sugar Control Test (HGBA1C) 07/10/2022 COVID-19 Vaccine ( season) 2024 02/08/2024, 12/14/2021, 12/16/2020, Additional history exists Zoster Vaccines (2 of 2) 04/04/2024 02/08/2024 Depression Screening 07/25/2024 08/10/2018 Influenza Vaccine (#1) 2025 3, 05/17/2022, 06/17/2021, [...] this topic Medical Devices Implanted Type Area Clinical Study Manager Device Identifier Shelf Expiration Date Model / Serial / Lot Kit Reamer Minibunion - Sn/A - [id number] Implanted:Qty: 1 on 12/07/2024 by Kayden Rivera DPM at [facility] Internal and External Fixation Left: First Toe [employer] [id number] 01/10/2028 3100-000 1 / N/A / [id number] Kit Instrument Minibunion - Sn/A - [id number] Implanted:Qty: 1 on 12/07/2024 by Kayden Rivera DPM at [facility] Internal and External Fixation Left: First Toe [employer] SYNTHES [id number] 04/03/2028 3100-000 0 / N/A / [id number] Nail Minibunion Offset Short 3.5mm - Sn/A - [id number] Implanted:Qty: 1 on 12/07/2024 by Kayden Rivera DPM at [facility] Internal and External Fixation Left: First Toe [employer] [id number] 05/01/2028 3100-003 0 / N/A / [id number] Screw Non Lock Minibunion 2.7x14mm - Sn/A - [id number] Implanted:Qty: 1 on 12/07/2024 by Kayden Rivera DPM at [facility] Internal and External Fixation Left: First Toe [employer] [id number] 03/03/2025 3100-271 4NL / N/A / [id number] Screw Locking Minibunion 3x20mm - Sn/A - [id number] Implanted:Qty: 1 on 12/07/2024 by Kayden Rivera DPM at [facility] Internal and External Fixation Left: First Toe [employer] [id number] 12/28/2027 3100-302 0LK / N/A / [id number] Procedures Procedure Name Priority Date/Time Associated Diagnosis Comments XR FOOT 3+ VIEWS LEFT Routine 01/17/2025 1:00 PM EDT Post-operative state XR FOOT 3+ VIEWS LEFT Routine 12/20/2024 12:57 PM EDT Post-operative state XR FOOT 2 VIEWS LEFT Routine 12/07/2024 9:23 AM EDT NE CORRECTION HALLUX VALGUS WITH DISTAL METATARSAL OSTEOTOMY [...] Signed Date: 12/07/2024 09:26 ET Workstation ID: [id number] Transcribed By: Self Edit Transcribed Date: 12/07/2024 [...] Signed Date: 12/07/2024 09:26 ET Workstation ID: [id number] Transcribed By: Self Edit Transcribed Date: 12/07/2024 09:24 ET Kayden Rivera DPM IMG XR PROCEDURES Final Res ult * (ABNORMAL) POCT Glucose, blood (12/07/2024 6:52 AM EDT) Glucose POCT 132(H) 70 - 100 mg/dL 12/07/2024 6:52 AM EDT [facility] Blood Capillary blood specimen / Unknown 12/07/2024 6:52 AM EDT 12/07/2024 6:53 AM EDT Kayden Rivera DPM LAB POINT OF CARE T EST DOCKED DEVICE UNSOLICITED RESULTS Final Result [facility] [address] [place] [address], * HIV Screening (09/07/2019) HIV Screening Abstracted [...] Resul t * Depression Screening (08/10/2018) Pathologist [facility] Depression Screening Abstracted Nazario Provider HEALTH MAINTENANCE Final Result * Cervical Cancer Screening: HPV (01/04/2017) Pathologist [facility] Cervical Cancer Screening: HPV Abstracted, Negative Nazario Pryor MD HEALTH MAINTENANCE Final Result from Last 3 Months or Most Recently Relevant to Health Maintenance Insurance [facility] [facility] Advance Directives Documents on File Type Date Recorded Patient Color Mixer Expl anation Health Care Decision (hx) 08/10/2019 [...] currently active code status orders. Care Teams Gaming Cashier Relationship Specialty Start Date End Date Jocelyne Bravo MD [address] [facility] [place] [address] PCP - General 04/30/24
[2025-02-12 09:40] VITALS: BP 128/82; PULSE 88; RESP 16; TEMP 36.8; O2SAT 98; BMI 23.0
== END 2025-02-12 10:22 | disposition home or self-care (01) ==
LOC: HO.HMCC 08:54
PROVIDERS: PCP Internal Medicine; Visit Provider Internal Medicine
DX: E11.40 Type 2 diabetes mellitus with diabetic neuropathy, unspecified (principal); E78.5 Hyperlipidemia, unspecified; I10 Essential (primary) hypertension; J45.20 Mild intermittent asthma, uncomplicated

== ENCOUNTER → 2025-02-12 08:53 | Outpatient (BNVA) | payer OTHER, SELFPAY | PROVIDERS: PCP Internal Medicine; Visit Provider Internal Medicine | DX: I10 Essential (primary) hypertension (principal); E78.5 Hyperlipidemia, unspecified; K21.9 Gastro-esophageal reflux disease without esophagitis; G43.909 Migraine, unspecified, not intractable, without status migrainosus; J30.9 Allergic rhinitis, unspecified; E11.40 Type 2 diabetes mellitus with diabetic neuropathy, unspecified; J45.20 Mild intermittent asthma, uncomplicated; E11.65 Type 2 diabetes mellitus with hyperglycemia; K58.2 Mixed irritable bowel syndrome | CPT/HCPCS: 96127; 96160; 99212 ==

== ENCOUNTER 2025-04-13 09:17 | Outpatient (REF) | payer OTHER, SELFPAY ==
--- OUTSIDE RECORDS SUMMARY | 2025-04-13 09:19 | XMS_ITS | Clinical Summary ---
Author Organization [address] [facility] Address [address] [place] [address] Phone Care Team Providers Care Block Tester Name Role Phone Jocelyne Bravo MD Primary Care Provider [phone] Allergies Active Allergy Reactions Criticality Noted Date [...] of right hand 02/04/2023 Depression 08/10/2018 Diabetes ([facility] V24, [facility] V28) 08/10/2018 Hyperlipidemia 08/10/2018 Resolved Problems Problem Noted Date Diagnosed Date Resolved Date Bunion, left 08/13/2024 12/07/2024 Encounters Date Type Department Care Team Description 03/21/2025 1:00 PM EDT Office Visit Orthopedic Surgery [place] [address] [address] Kayden Rivera DPBautista Controlled type 2 diabetes with neuropathy ([facility] V24, [facility] V28) (Primary Dx); Pain in left foot; Ingrown toenail of right foot 02/28/2025 Telephone Orthopedic Surgery [facility] [address] [phone] Kayden Rivera, DPM 02/12/2025 Telephone Orthopedic Surgery [facility] [address] [phone] Kayden Rivera, DPM 02/11/2025 10:00 AM EDT Office Visit Orthopedic [facility] [address] [phone] Kayden Rivera, DPM Ingrown toenail of right foot (Primary Dx); Cellulitis of right foot; Left foot pain 01/17/2025 1:15 PM EDT Office Visit Orthopedic [facility] [address] [phone] Kayden Rivera DPM Post-operative state (Primary Dx) from Last 3 Months Surgical History Surgery Date Site/Laterality Comments TUBAL LIGATION PROCEDURE: HISTORICAL TUBAL LIGATION COLONOSCOPY PROCEDURE: HISTORICAL COLONOSCOPY CARPAL TUNNEL RELEASE Bilateral ENDOMETRIAL ABLATION 07/25/2007 - 07/24/2008 Medical History Medical History Date Comments DM (diabetes mellitus) with complications ([facility] V24, [facility] V28) DX:DM (diabetes mellitus) w ith complications [...] Care Team (Late st Contact Info) Description 05/23/2025 3:00 PM EDT Office Visit Orthopedic Surgery - [place] [address] [facility] [address] [place] [phone] Kayden Rivera, CHAD [address] [address] Health Maintenance Due Date Last Done Comments [...] Diabetes: Blood Sugar Control Test (HGBA1C) 07/10/2022 Zoster Vaccines (2 of 2) 04/04/2024 02/08/2024 Depression Screening 07/25/2024 08/10/2018 COVID-19 Vaccine ( season) 2025 02/08/2024, 12/14/2021, 12/16/2020, Additional history exists Influenza Vaccine (#1) 2025 , 05/17/2022, 06/17/2021, Additional history exists DTaP,Tdap,and Td [...] this topic Medical Devices Implanted Type Area Sports Bookmaker Device Identifier Shelf Expiration Date Model / Serial / Lot Kit Reamer Minibunion - Sn/A - [id number] Implanted:Qty: 1 on 12/07/2024 by Kayden Rivera DPM at [facility] Internal and External Fixation Left: First Toe [employer] [id number] 01/10/2028 3100-000 1 / N/A / [id number] Kit Instrument Minibunion - Sn/A - [id number] Implanted:Qty: 1 on 12/07/2024 by Kayden Rivera DPM at [facility] Internal and External Fixation Left: First Toe [employer] [id number] 04/03/2028 3100-000 0 / N/A / [id number] Nail Minibunion Offset Short 3.5mm - Sn/A - [id number] Implanted:Qty: 1 on 12/07/2024 by Kayden Rivera DPM at [facility] Internal and External Fixation Left: First Toe [employer] [id number] 05/01/2028 3100-003 0 / N/A / [id number] Screw Non Lock Minibunion 2.7x14mm - Sn/A - [id number] Implanted:Qty: 1 on 12/07/2024 by Kayden Rivera DPM at [facility] Internal and External Fixation Left: First Toe [employer] [id number] 03/03/2025 3100-271 4NL / N/A / [id number] Screw Locking Minibunion 3x20mm - Sn/A - [id number] Implanted:Qty: 1 on 12/07/2024 by Kayden Rivera DPM at [facility] Internal and External Fixation Left: First Toe [employer] [id number] 12/28/2027 3100-302 0LK / N/A / [id number] Procedures Procedure Name Priority Date/Time Associated Diagnosis Comments XR FOOT 3+ VIEWS LEFT Routine 01/17/2025 1:00 PM EDT Post-operative state HIV SCREENING Routine 09/07/2019 SCR MAMMO BI INCL CAD Routine 05/08/2019 1:52 PM EDT Encounter for screening mammogram for malignant neoplasm of breast DEPRESSION SCREENING Routine 08/10/2018 HPV Routine 01/04/2017 from Last 3 Months or Most Recently Relevant to Health Maintenance Results * XR Foot 3+ Views Left (01/17/2025 1:00 PM EDT) Anatomical Region Laterality Modality Lower Extremities, Foot Left Computed Radiography Narrative 01/17/2025 7:30 PM EDT Left foot 3 views nonweightbearing: Correction is maintained in good rectus alignment. Normal postoperative healing. Kayden Rivera DPM IMG XR PROCEDURES Final Res ult * HIV Screening (09/07/2019) [facility] HIV Screening Abstracted Historical Provider HEALTH MAINTENANCE [...] Resul t * Depression Screening (08/10/2018) Pathologist [facility] Depression Screening Abstracted Result [facility] Historical Provider HEALTH MAINTENANCE Final Result * Cervical Cancer Screening: HPV (01/04/2017) Pathologist [facility] Cervical Cancer Screening: HPV Abstracted, Negative Historical Provider HEALTH MAINTENANCE Final Result from Last 3 Months or Most Recently Relevant to Health [place] [phone] [facility] Advance Directives Documents on File Type Date Recorded 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 Care Teams Block Tester Relationship Specialty Start Date End Date Jocelyne Bravo MD [address] [place] [address] PCP - General 04/30/24
--- OUTSIDE RECORDS SUMMARY | 2025-04-13 09:19 | XMS_ITS | Clinical Summary ---
Author Organization [facility] Address [address] [place] [address] Care Team Providers Care Pc Network Technician Name Role Phone Afua Oakley PA-C Primary Care Provider [phone] Source Comments PLEASE NOTE, if this patient [...] mcg/actuation inhalerIndicatio ns:Mild intermittent asthma without complication ([facility]) Inhale 2 Puffs into the lungs every 4 (four) hours as needed for wheezing. 18 g 3 6 Active predniSONE (DELTASONE) 10 mg tabletIndication s:Mild intermittent asthma without complication ([facility]) 0 6 Active clotrimazole (LOTRIMIN) 1 % creamIndications :Tinea pedis of both feet Apply topically 2 (two) times daily. 15 g 0 6 Active gabapentin (NEURONTIN) 300 mg capsuleIndicatio ns:neuropathic pain Take 1 Cap by mouth 3 (three) times daily. Indications: Neuropathic Pain 90 Cap 3 6 Active citalopram (CELEXA) 20 mg tabletIndication s:depression associated with bipolar disorder,rxed by [facility]. looking for new Take 0.5 Tabs by mouth once daily. Indications: DEPRESSION ASSOCIATED WITH BIPOLAR DISORDER, rxed by [facility]. looking for new 15 Tab 3 6 Active lancets (FREESTYLE LANCETS) 28 gauge Dx. E11.9 checks once daily 100 Each 3 6 Active metFORMIN (GLUCOPHAGE) 500 mg tabletIndication s:Controlled type 2 diabetes mellitus without complication, without long-term current use of insulin ([facility]) take 1 tablet by mouth twice a day with A MEAL 10 Tab 0 7 Active Active Problems Problem Noted Date Diagnosed Date Fibroid 10/15/2015 Overview (10/15/2015): Planning pelvic next visit Colon cancer screening/repea t in 10yr, aug-2025/ HAD EGD ALSO, await bx path 09/05/2015 Overview (09/18/2015): 08/26/15 [facility] [phone], Dr. Arnold Plaza MD, had upper GI [...] H/O bone density study 08/14/2015 Overview (08/14/2015): [facility] 06/02/15 Normal DUB (dysfunctional uterine bleeding) 08/14/2015 Overview (08/14/2015): Has ablation in 2007, 09/19/14: Pelvic u/s + sm fibroid,ovaries normal, + nabothian cyst 04/05/11: Normal Pelvic u/s 12/14/07: pelvic U/s 1.8 cm right ovarian cyst, thick endometrium, without focal endo metrium. No fibroid, otherwise normal History of EKG 08/14/2015 Overview (08/14/2015): [facility] 02/07/08 NSR Encounter for gynecological examination 08/13/19 16 Overview (08/13/2015): Normal exam, the pt had a ablation done for fibroid, in 2007 Hematuria, microscopic 04/17/2015 Overview (04/17/2015): Renal U/s normal [facility] 04/11/15. Kidneys are normal. No mass/stone/or [...] 0.4 12/10/2014 Eye doc: [facility] #[id number] Lab Results Component Value Date HGBA1C 6.2 02/25/2015 Perfect! On metformin 500 bid 04/08/15 signed form for home diabetic supplies through [facility] Lab Results Component Value Date [...] 125* 06/23/2015 increaseing to zocor Jun Asthma ([facility]) Overview (10/18/2014): controlled with flovent [...] pt aware of result Pt notes rec [facility] [phone] PT form signed 10/23/14 for cont therapy Depressive disorder, not elsewhere classified Overview (08/23/2014): not in conseling: by willing to try Resolved Problems Problem Noted Date Diagnosed Date Resolved Date H/O bone density study/normal Jun 02, 2015 06/14/201506/1406/14/2015 Overview (08/19/2015): bmd done NORMAL 06/02/15 [facility]; done secondary to metabolic bone disease, post menopausal [address] [address] A Member of [facility] Patient: SPRING NICKERSON : 1965 Age: 50 Gender: F Account: [id number] Report: [facility] Dexa Axial Skeleton Ordered By: SOPHY OATES MD Date: 06/02/2015 3:29:09 PM Status: F DEXA (dual-energy x-ray absorptiometry) [id number] History: Metabolic bone disease. Post menopausal estrogen [...] IMPRESSION: Findings suggesting normal bone mineral density. 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
[2025-04-13 11:10] LABS: MANUAL DIFF FLAG NO
[2025-04-13 11:15] LABS: Hematocrit 35.7 % (37.0-47.0); Hemoglobin 11.3 g/dl (12.0-16.0); Imm Gran Abs Auto 0.02 X10*3/uL (0.00-0.03); Imm Gran Pct Auto 0.4 % (0.0-0.4); Lymphocytes Absolute Auto 2.2 X10*3/uL (1.2-4.9); Mean Corpuscular HGB Conc 31.7 g/dl (31.0-35.0); Mean Corpuscular Hemoglobin 30.3 pg (27.0-33.0); Mean Corpuscular Volume 95.7 fL (80.0-98.0); NRBC Abs Auto 0.000 X10*3/uL (0.0-0.012); NRBC Pct Auto 0.0 /100WBC (0.0-0.2); Platelet Count 303 X10*3/uL (160-400); Red Blood Count 3.73 X10*6/uL (4.20-5.50); White Blood Count 5.6 X10*3/uL (4.8-10.8)
[2025-04-13 11:28] LABS: Hemoglobin A1C 152.6952 umol/L; Total Hemoglobin (HGBA1C) 3039.1741 umol/L
[2025-04-13 11:56] LABS: Alanine Aminotransferase 22 U/L (0-31); Anion Gap 13 (12-20); Aspartate Amino Transferase 29 U/L (5-31); Blood Urea Nitrogen 20 mg/dL (9-16); Calcium 9.4 mg/dL (8.4-10.2); Carbon Dioxide 23 mmol/L (22-29); Chloride 111 mmol/L (96-108); Cholesterol 165 mg/dL (<200); Estimated Glomerular Filt Rate > 60; HDL Cholesterol 51 mg/dL (>40); Iron 82 mcg/dL (30-160); Percent Iron Saturation 29 % (15-50); Potassium 4.9 mmol/L (3.3-5.1); Sodium 142 mmol/L (135-145); Total Iron Binding Capacity 287 mcg/dL (228-428); Triglycerides 102 mg/dL (<150); Unsaturated Iron Binding 205 ug/dL
--- OUTSIDE RECORDS SUMMARY | 2025-05-21 20:00 | XMS_ITS | Clinical Summary ---
Author Organization Unknown Care Team Providers Care Receivables Specialist Name Role Phone ADIEL BAÑUELOS, OTTO FAJARDO Unavailable Unavaileli PEDERSON RN, SUN Unavailable Unavailable Payers Payer Name Policy Type Policy Number Effective Date Expira tion Date [facility] [place] [place] [facility] [id number] MEDICAID [facility] [id number] Problems Condition Name Condition Details Condition Category [...] on aerosol inhaler 01-23 00:00: 00 Yes [id number] 2 puff EVERY 4 HOURS 2 puff EVERY 4 HOURS (route: inhalation ) Med Classific ation: Respirato ry Therapy Agents citalopram 10 mg tablet 01-23 00:00: 00 Yes [id number] 2 tablet DAILY 2 tablet DAILY (route: oral) Med Classific ation: Central Nervous System Agents clotrimazol e-betametha sone 1 %-0.05 % topical cream 01-23 00:00: 00 Yes [id number] Per instruc tions 2 TIMES DAILY Per instructio ns 2 TIMES DAILY (route: topical) Med Classific ation: Dermatolo gical ibuprofen 800 mg tablet 01-23 00:00: 00 Yes [id number] 1 tablet 2 TIMES DAILY 1 tablet 2 TIMES DAILY (route: oral) Med Classific ation: Analgesic , Anti-infl ammatory or Antipyret ic metformin 1,000 mg tablet 01-23 00:00: 00 Yes [id number] 1 tablet 2 TIMES DAILY 1 tablet 2 TIMES DAILY (route: oral) Med Classific ation: Endocrine oxycodone 5 mg tablet 01-23 00:00: 00 03-21 23:59 :00 No [id number] 1 tablet EVERY 6 HOURS 1 tablet EVERY 6 HOURS (route: oral) Med Classific ation: Analgesic , Anti-infl ammatory or Antipyret ic Pain Relief (acetaminop hen) 650 mg tablet,exte nded release 01-23 00:00: 00 Yes [id number] 1 tablet EVERY 8 HOURS 1 tablet EVERY 8 HOURS (route: oral) Med Classific ation: Analgesic , Anti-infl ammatory or Antipyret ic trazodone 50 mg tablet 01-23 00:00: 00 Yes [id number] 1 tablet DAILY 1 tablet DAILY (route: oral) Med Classific ation: Central Nervous System Agents atorvastati n 20 mg tablet 03-24 00:00: 00 Yes [id number] 1 tablet DAILY 1 tablet DAILY (route: oral) Med Classific ation: Cardiovas cular Therapy Agents cetirizine 10 mg tablet 03-24 00:00: 00 Yes [id number] 1 tablet DAILY 1 tablet DAILY (route: oral) Med Classific ation: Respirato ry Therapy Agents dicyclomine 20 mg tablet 03-24 00:00: 00 Yes [id number] 1 tablet 3 TIMES DAILY 1 tablet 3 TIMES DAILY (route: oral) Med Classific ation: Gastroint estinal Therapy Agents famotidine 40 mg tablet 03-24 00:00: 00 Yes [id number] 1 tablet BEDTIME 1 tablet BEDTIME (route: oral) Med Classific ation: Gastroint estinal Therapy Agents ferrous sulfate 325 mg (65 mg iron) tablet,oksana yed release 03-24 00:00: 00 Yes [id number] 1 tablet DAILY 1 tablet DAILY (route: oral) Med Classific ation: Electroly te Balance-N utritiona l Products gabapentin 300 mg capsule 03-24 00:00: 00 Yes [id number] 1 capsule 3 TIMES DAILY 1 capsule 3 TIMES DAILY (route: oral) Med Classific ation: Central Nervous System Agents metoclopram rafael 10 mg tablet 03-24 00:00: 00 Yes [id number] 1 tablet 4 TIMES DAILY 1 tablet 4 TIMES DAILY (route: oral) Med Classific ation: Gastroint estinal Therapy Agents omeprazole 20 mg capsule,del ayed release 03-24 00:00: 00 Yes [id number] 1 capsule DAILY 1 capsule DAILY (route: oral) Med Classific ation: Gastroint estinal Therapy Agents sucralfate 1 gram tablet 03-24 00:00: 00 Yes [id number] 1 tablet 3 TIMES DAILY 1 tablet 3 TIMES DAILY (route: oral) Med Classific ation: Gastroint estinal Therapy Agents topiramate 25 mg tablet 03-24 00:00: 00 Yes [id number] 1 tablet 2 TIMES DAILY 1 tablet 2 TIMES DAILY (route: oral) Med Classific ation: Central Nervous System Agents Viberzi 100 mg tablet 03-24 00:00: 00 Yes [id number] 1 tablet 2 TIMES DAILY 1 tablet 2 TIMES DAILY (route: oral) Med Classific ation: Gastroint estinal Therapy Agents Immunizations Ordered Immunization Name Filled Immunization Name Date Status Comments Refusal Reason REFUSED FLU, PPV 2025-01-23 00:00:00 Vital Signs Vital Name Observation Time Observation Value Commen ts Temperature 2025-04-12 13:08:00.000 98.6 [degF] Temperature 2025-04-04 18:39:00.000 98.6 [degF] Temperature 2025-03-28 14:15:00.000 98.6 [degF] Pulse 2025-04-12 13:08:00.000 82 /min Pulse 2025-04-04 18:39:00.000 82 /min Pulse 2025-03-28 14:15:00.000 82 /min Respirations 2025-04-12 13:08:00.000 20 /min Respirations 2025-04-04 18:39:00.000 20 /min Respirations 2025-03-28 14:15:00.000 20 /min Systolic Blood Pressure 2025-04-12 13:08:00.000 132 mm [Hg] Systolic Blood Pressure 2025-04-04 18:39:00.000 132 mm [Hg] Systolic Blood Pressure 2025-03-28 14:15:00.000 124 mm [Hg] Diastolic Blood Pressure 2025-04-12 13:08:00.000 [...] MAINTAIN SITUATIONAL AWARENESS AND WILL NOTIFY CLINICAL HEEL COMPRESSOR AND PHYSICIAN/PROVIDER WITH ANY CHANGE IN CONDITION. [code = SKILLED NURSE TO PERFORM ENVIRONMENTAL SAFETY RISK ASSESSMENT AND FALL RISK ASSESSMENT AND PROVIDE INSTRUCTION TO IMPLEMENT ENVIRONMENTAL SAFETY AND FALL PREVENTION STRATEGIES THROUGHOUT THE CERTIFICATION PERIOD. SKILLED NURSE WILL MAINTAIN SITUATIONAL AWARENESS AND WILL NOTIFY CLINICAL HEEL COMPRESSOR AND PHYSICIAN/PROVIDER WITH ANY CHANGE IN CONDITION.] [...] AWARENESS FOR SAFETY AND WILL NOTIFY CLINICAL HEEL COMPRESSOR AND PHYSICIAN/PROVIDER WITH ANY CHANGE IN CONDITION. [code = SKILLED NURSE WILL MAINTAIN SITUATIONAL AWARENESS FOR SAFETY AND WILL NOTIFY CLINICAL HEEL COMPRESSOR AND PHYSICIAN/PROVIDER WITH ANY CHANGE IN CONDITION.] [...] CARE WILL BE ESTABLISHED THAT MEETS PATIENT'S INTERMEDIATE NEEDS AND INCLUDES PATIENT GOAL FOR HOME [...] BY THE END OF THE CERTIFICATION PERIOD. Progress Notes Progress Notes <paragraph>[Visit Date: 2024 by SUN PEDERSON RN]:</paragraph><paragraph>SN VISIT (04/12/2025) PATIENT PRESENTS ALERT ORIENTED X3 SPHERES. PATIENT MOOD DEPRESSED ANXIOUS IRRITABLE, COMPLIANTS OF LEFT LATERAL PEDAL, SITE FOOT SURGERY ON DECEMBER 07, 2025 FOR REPAIR OF BUNION. PATIENT HAVING PAIN AT THE SITE 5HE HARDWARE IS CAUSING PAIN, DUE TO GARDWARE ON SURFACE OF SKIN , INTERNAL SCREWS SCRAPES INNER FOOT TISSUES. PATIENT WILL CONTINUE FOLLOW UP WITH SURGEON, TO PLAN REPEAT SURGERY FOR REMOVAL OF HARDWARE. PATIENT SCHEDULED TO SEE SURGEON 05/23/2025. SHE IS SCHEDULED TO SEE NEW PCP, DR. RHETT ORTIZ ON April, [address] [place] [address]. [phone] ( TELEPHONE NUMBER [phone].</paragraph> Encounters Start Date/Time End Date/Time Encounter Type Admission Type Attending Clinicians Care Facility Care Department Encounter ID Discharge Date Discharge Status Discharge Condition Discharge Reason Percent Goals Met 2025-03-24 00:00:00 2025-05-22 00:00:00 Outpatient RECERTIFIC SUN [facility] [id number] 0.00
== END 2025-04-13 09:18 | disposition home or self-care (01) ==
LOC: HO.HMGCLDS 09:17
PROVIDERS: PCP Student in an Organized Health Care Education/Training Program; Visit Provider Internal Medicine
DX: I10 Essential (primary) hypertension (principal); E78.5 Hyperlipidemia, unspecified; E11.40 Type 2 diabetes mellitus with diabetic neuropathy, unspecified; K21.9 Gastro-esophageal reflux disease without esophagitis; D64.9 Anemia, unspecified; Z78.0 Asymptomatic menopausal state
CPT/HCPCS: 36415; 80048; 80061; 82306; 83036; 83540; 84450; 84460; 85025

== ENCOUNTER 2025-04-25 14:28 | Outpatient (AMB) | payer OTHER, SELFPAY ==
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
[2025-04-25 14:53] VITALS: BP 120/76; PULSE 86; RESP 16; TEMP 36.5; O2SAT 98; BMI 22.8
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
--- OUTSIDE RECORDS SUMMARY | 2025-04-25 16:03 | XMS_ITS | Clinical Summary ---
Author Organization [facility] Address [address] [place] [address] Care Team Providers Care Gasoline Service Attendant Name Role Phone Afua Oakley PA-C Primary Care Provider [phone] Source Comments PLEASE NOTE, if this patient [...] tabletIndication s:depression associated with bipolar disorder,rxed by [facility]. looking for new Take 0.5 Tabs by mouth once daily. Indications: DEPRESSION ASSOCIATED WITH BIPOLAR DISORDER, rxed by [facility]. looking for new 15 Tab 3 6 Active lancets (FREESTYLE LANCETS) 28 gauge Dx. E11.9 checks once daily 100 Each 3 6 Active metFORMIN (GLUCOPHAGE) 500 mg tabletIndication s:Controlled type 2 diabetes mellitus without complication, without long-term current use of insulin take 1 tablet by mouth twice a day with A MEAL 10 Tab 0 7 Active Active Problems Problem Noted Date Diagnosed Date Fibroid 10/15/2015 Overview (10/15/2015): Planning pelvic next visit Colon cancer screening/repea t in 10yr, aug-2025/ HAD EGD ALSO, await bx path 09/05/2015 Overview (09/18/2015): 08/26/15 Surgicenter [phone], Dr. Arnold Plaza MD, had upper GI [...] microscopic 04/17/2015 Overview (04/17/2015): Renal U/s normal [facility] 04/11/15. Kidneys are normal. No mass/stone/or obstruction [...] birads 2 06/03/10 birad 2 03/20/09: eduar [place] 1 Diabetes type 2, controlled 08/25/2014 Overview (06/23/2015): Lab Results Component Value [...] 0.4 12/10/2014 Eye doc: [facility] #[id number] Lab Results Component Value Date HGBA1C 6.2 02/25/2015 Perfect! On metformin 500 bid 04/08/15 signed form for home diabetic supplies through [facility] Lab Results Component Value Date HGBA1C [...] sciata also never had PT: film done [facility] long ago. 09/13/14 film ordered, and refer to PT [facility] 09/27/14: Disc space narrowing L5-S1 which has progressed from last exam. No fx or sublux: pt aware of result Pt notes rec [facility] [facility] [phone] PT form signed 10/23/14 for cont therapy Depressive disorder, not elsewhere classified Overview (08/23/2014): not in conseling: by willing to try Resolved Problems Problem Noted Date Diagnosed Date Resolved Date H/O bone density study/normal Jun 02, 2015 06/14/2015 06/14/2015 Overview (08/19/2015): bmd done NORMAL 06/02/15 [facility]; done secondary to metabolic bone disease, post menopausal [address] [address] A Member of [facility] Patient: SPRING NICKERSON : 1965 Age: 50 Gender: F Account: [id number] Report: [facility] Dexa Axial Skeleton Ordered By: SOPHY OATES MD Date: 06/02/2015 3:29:09 PM Status: F DEXA (dual-energy x-ray absorptiometry) 60170 History: Metabolic bone disease. Post menopausal estrogen [...] IMPRESSION: Findings suggesting normal bone mineral density. 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
--- OUTSIDE RECORDS SUMMARY | 2025-05-21 20:00 | XMS_ITS | Clinical Summary ---
Author Organization Unknown Care Team Providers Care Transportation Maintenance Operator Name Role Phone ADIEL BAÑUELOS, OTTO FAJARDO Unavailable Unavaileil PEDERSON RN, SUN Unavailable Unavailable Payers Payer Name Policy Type Policy Number Effective Date Expira tion Date [facility] ([facility] [place] [facility] [id number] MEDICAID [facility] [id number] Problems Condition Name Condition Details Condition Category [...] on aerosol inhaler 01-23 00:00: 00 Yes [id number] 2 puff EVERY 4 HOURS 2 puff EVERY 4 HOURS (route: inhalation ) Med Classific ation: Respirato ry Therapy Agents citalopram 10 mg tablet 01-23 00:00: 00 Yes [id number] 2 tablet DAILY 2 tablet DAILY (route: oral) Med Classific ation: Central Nervous System Agents clotrimazol e-betametha sone 1 %-0.05 % topical cream 01-23 00:00: 00 Yes [id number] Per instruc tions 2 TIMES DAILY Per instructio ns 2 TIMES DAILY (route: topical) Med Classific ation: Dermatolo gical ibuprofen 800 mg tablet 01-23 00:00: 00 Yes [id number] 1 tablet 2 TIMES DAILY 1 tablet 2 TIMES DAILY (route: oral) Med Classific ation: Analgesic , Anti-infl ammatory or Antipyret ic metformin 1,000 mg tablet 01-23 00:00: 00 Yes [id number] 1 tablet 2 TIMES DAILY 1 tablet 2 TIMES DAILY (route: oral) Med Classific ation: Endocrine oxycodone 5 mg tablet 01-23 00:00: 00 03-21 23:59 :00 No [id number] 1 tablet EVERY 6 HOURS 1 tablet EVERY 6 HOURS (route: oral) Med Classific ation: Analgesic , Anti-infl ammatory or Antipyret ic Pain Relief (acetaminop hen) 650 mg tablet,exte nded release 01-23 00:00: 00 Yes [id number] 1 tablet EVERY 8 HOURS 1 tablet EVERY 8 HOURS (route: oral) Med Classific ation: Analgesic , Anti-infl ammatory or Antipyret ic trazodone 50 mg tablet 01-23 00:00: 00 Yes [id number] 1 tablet DAILY 1 tablet DAILY (route: oral) Med Classific ation: Central Nervous System Agents atorvastati n 20 mg tablet 03-24 00:00: 00 Yes [id number] 1 tablet DAILY 1 tablet DAILY (route: oral) Med Classific ation: Cardiovas cular Therapy Agents cetirizine 10 mg tablet 03-24 00:00: 00 Yes [id number] 1 tablet DAILY 1 tablet DAILY (route: oral) Med Classific ation: Respirato ry Therapy Agents dicyclomine 20 mg tablet 03-24 00:00: 00 Yes [id number] 1 tablet 3 TIMES DAILY 1 tablet 3 TIMES DAILY (route: oral) Med Classific ation: Gastroint estinal Therapy Agents famotidine 40 mg tablet 03-24 00:00: 00 Yes [id number] 1 tablet BEDTIME 1 tablet BEDTIME (route: oral) Med Classific ation: Gastroint estinal Therapy Agents ferrous sulfate 325 mg (65 mg iron) tablet,oksana yed release 03-24 00:00: 00 Yes [id number] 1 tablet DAILY 1 tablet DAILY (route: oral) Med Classific ation: Electroly te Balance-N utritiona l Products gabapentin 300 mg capsule 03-24 00:00: 00 Yes [id number] 1 capsule 3 TIMES DAILY 1 capsule 3 TIMES DAILY (route: oral) Med Classific ation: Central Nervous System Agents metoclopram rafael 10 mg tablet 03-24 00:00: 00 Yes [id number] 1 tablet 4 TIMES DAILY 1 tablet 4 TIMES DAILY (route: oral) Med Classific ation: Gastroint estinal Therapy Agents omeprazole 20 mg capsule,del ayed release 03-24 00:00: 00 Yes [id number] 1 capsule DAILY 1 capsule DAILY (route: oral) Med Classific ation: Gastroint estinal Therapy Agents sucralfate 1 gram tablet 03-24 00:00: 00 Yes [id number] 1 tablet 3 TIMES DAILY 1 tablet 3 TIMES DAILY (route: oral) Med Classific ation: Gastroint estinal Therapy Agents topiramate 25 mg tablet 03-24 00:00: 00 Yes [id number] 1 tablet 2 TIMES DAILY 1 tablet 2 TIMES DAILY (route: oral) Med Classific ation: Central Nervous System Agents Viberzi 100 mg tablet 03-24 00:00: 00 Yes [id number] 1 tablet 2 TIMES DAILY 1 tablet 2 TIMES DAILY (route: oral) Med Classific ation: Gastroint estinal Therapy Agents Immunizations Ordered Immunization Name Filled Immunization Name Date Status Comments Refusal Reason REFUSED FLU, PPV 2025-01-23 00:00:00 Vital Signs Vital Name Observation Time Observation Value Commen ts Temperature 2025-04-18 13:51:00.000 98.6 [degF] Temperature 2025-04-12 13:08:00.000 98.6 [degF] Temperature 2025-04-04 18:39:00.000 98.6 [degF] Temperature 2025-03-28 14:15:00.000 98.6 [degF] Pulse 2025-04-18 13:51:00.000 82 /min Pulse 2025-04-12 13:08:00.000 82 /min Pulse 2025-04-04 18:39:00.000 82 /min Pulse 2025-03-28 14:15:00.000 82 /min Respirations 2025-04-18 13:51:00.000 20 /min Respirations 2025-04-12 13:08:00.000 20 /min Respirations 2025-04-04 18:39:00.000 20 /min Respirations 2025-03-28 14:15:00.000 20 /min Systolic Blood Pressure 2025-04-18 13:51:00.000 121 mm [Hg] Systolic Blood Pressure 2025-04-12 13:08:00.000 132 mm [Hg] Systolic Blood Pressure 2025-04-04 18:39:00.000 132 mm [Hg] Systolic Blood Pressure 2025-03-28 14:15:00.000 124 mm [Hg] Diastolic Blood Pressure 2025-04-18 13:51:00.000 [...] MAINTAIN SITUATIONAL AWARENESS AND WILL NOTIFY CLINICAL RECREATION PROGRAM SPECIALIST AND PHYSICIAN/PROVIDER WITH ANY CHANGE IN CONDITION. [code = SKILLED NURSE TO PERFORM ENVIRONMENTAL SAFETY RISK ASSESSMENT AND FALL RISK ASSESSMENT AND PROVIDE INSTRUCTION TO IMPLEMENT ENVIRONMENTAL SAFETY AND FALL PREVENTION STRATEGIES THROUGHOUT THE CERTIFICATION PERIOD. SKILLED NURSE WILL MAINTAIN SITUATIONAL AWARENESS AND WILL NOTIFY CLINICAL RECREATION PROGRAM SPECIALIST AND PHYSICIAN/PROVIDER WITH ANY CHANGE IN CONDITION.] [...] AWARENESS FOR SAFETY AND WILL NOTIFY CLINICAL RECREATION PROGRAM SPECIALIST AND PHYSICIAN/PROVIDER WITH ANY CHANGE IN CONDITION. [code = SKILLED NURSE WILL MAINTAIN SITUATIONAL AWARENESS FOR SAFETY AND WILL NOTIFY CLINICAL RECREATION PROGRAM SPECIALIST AND PHYSICIAN/PROVIDER WITH ANY CHANGE IN CONDITION.] [...] CARE WILL BE ESTABLISHED THAT MEETS PATIENT'S SENIOR CARE NEEDS AND INCLUDES PATIENT GOAL FOR HOME [...] End Date/Time Encounter Type Admission Type Attending [facility] Care Department Encounter ID Discharge Date Discharge Status Discharge Condition Discharge Reason Percent Goals Met 2025-03-24 00:00:00 2025-05-22 00:00:00 Outpatient RECERTIFIC ATSUN S[facility] [id number] 0.00
== END 2025-04-25 15:25 | disposition home or self-care (01) ==
LOC: HO.HMCHD 14:28
PROVIDERS: PCP Student in an Organized Health Care Education/Training Program; Visit Provider Student in an Organized Health Care Education/Training Program
DX: E11.40 Type 2 diabetes mellitus with diabetic neuropathy, unspecified (principal); E78.5 Hyperlipidemia, unspecified; K21.9 Gastro-esophageal reflux disease without esophagitis; K58.0 Irritable bowel syndrome with diarrhea; J45.20 Mild intermittent asthma, uncomplicated; M51.361 Other intervertebral disc degeneration, lumbar region with lower extremity pain only; J34.89 Other specified disorders of nose and nasal sinuses

== ENCOUNTER → 2025-04-25 14:28 | Outpatient (BNVA) | payer OTHER, SELFPAY | PROVIDERS: PCP Student in an Organized Health Care Education/Training Program; Visit Provider Student in an Organized Health Care Education/Training Program | DX: E11.40 Type 2 diabetes mellitus with diabetic neuropathy, unspecified (principal); E78.5 Hyperlipidemia, unspecified; K21.9 Gastro-esophageal reflux disease without esophagitis; K58.0 Irritable bowel syndrome with diarrhea; J45.20 Mild intermittent asthma, uncomplicated; M51.361 Other intervertebral disc degeneration, lumbar region with lower extremity pain only; J34.89 Other specified disorders of nose and nasal sinuses; Z79.84 Long term (current) use of oral hypoglycemic drugs; Z79.899 Other long term (current) drug therapy | CPT/HCPCS: 99212 ==

== ENCOUNTER 2025-05-16 13:30 | Outpatient (AMB) | payer OTHER, SELFPAY ==
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
[2025-05-16 13:39] VITALS: BP 114/82; PULSE 94; RESP 18; TEMP 36.3; O2SAT 98; BMI 24.1
--- OUTSIDE RECORDS SUMMARY | 2025-05-16 17:04 | XMS_ITS | Encounter Summary ---
Author Organization [facility] Address [address] [place] [address] Care Team Providers Care Electromagnet Crane Operator Name Role Phone Juan Manuel Muñoz MD Primary Care Provider Jocelyne Dial Md, MD Primary Care Provider Unavailable Encounter Details Date Type Department Care Team Description 05/16/2023 Orders Only [facility] [address] [facility] [address] [place] [phone] Rose Wilson PA-C [address] [facility] [address] [place] [address] Carpal tunnel syndrome of left wrist Social History Tobacco Use Types Packs/Day Years Used Date Smoking Tobacco: Never Smokeless Tobacco: Never Alcohol Use Standard Drinks/Week Comments No 0 (1 standard drink = 0.6 oz pur e alcohol) Sex Assigned at Date Recorded Not on file COVID-19 Exposure Response Date Recorded In the last 10 days, have yo u been in contact with someone who was confirmed or suspected to have Coronavirus/COVID-19? No / Unsure 04/19/2023 8:12 AM EDT documented as of this encounter Plan of Treatment Not on file documented as of this encounter Procedures Procedure Name Priority Date/Time Associated Diagnosis Comments EMG INTERNAL/EXTERNAL Routine 12/06/2022 Carpal tunnel syndrome of left wrist documented in this encounter Results * EMG INTERNAL/EXTERNAL (12/06/2022) Rose Wilson PA-C PHYSIATRY documented in this encounter Visit Diagnoses Diagnosis Carpal tunnel syndrome of left wrist Carpal tunnel syndrome documented in this encounter Care Teams Electromagnet Crane Operator Relationship Specialty Start Date End Date Juan Manuel Muñoz MD PCP - General Family Practice 05/08/19 04/29/24 Jocelyne Bravo MD, MD PCP - General Internal Medicine 04/30/24 documented as of this encounter"
--- OUTSIDE RECORDS SUMMARY | 2025-05-16 17:04 | XMS_ITS | Encounter Summary ---
Author Organization [facility] Address [address] [facility] [place] [address] Care Team Providers Care Dumper Name Role Phone Jocelyne Bravo Md, MD Primary Care Provider Unavailable Reason for Visit * Reason Comments E-prescribe Rx Request Encounter Details Date Type Department Care Team Description 04/30/2024 Refill [facility] [address] [facility] [address] [place] [phone] Rose Wilson, PA-C [address] [facility] [address] [place] [address] E-prescribe Rx Request Social History Tobacco Use Types Packs/Day Years Used Date Smoking Tobacco: Never Smokeless Tobacco: Never Alcohol Use Standard Drinks/Week Comments No 0 (1 standard drink = 0.6 oz pur e alcohol) Sex Assigned at Date Recorded Not on file documented as of this encounter Plan of Treatment Not on file documented as of this encounter Visit Diagnoses Not on filedocumented in this encounter Care Teams Dumper Relationship Specialty Start Date End Date Jocelyne Bravo MD, MD PCP - General Internal Medicine 04/30/24 documented as of this encounter
--- OUTSIDE RECORDS SUMMARY | 2025-05-16 17:04 | XMS_ITS | Encounter Summary ---
Author Organization [facility] Address [address] [facility] [place] [address] Care Team Providers Care Clinical Informatics Educator Name Role Phone Juan Manuel Muñoz MD Primary Care Provider Jocelyne Dial Md, MD Primary Care Provider Unavailable Reason for Visit * Reason Comments E-prescribe Rx Request Encounter Details Date Type Department Care Team Description 01/18/2024 Refill [facility] [address] [facility] [address] [place] [phone] Mela Pineda MD [address] [facility] [address] [place] [address] E-prescribe Rx Request Social History Tobacco Use [...] on filedocumented in this encounter Care Teams Clinical Informatics Educator Relationship Specialty Start Date End Date Juan Manuel Muñoz MD PCP - General Family Practice 05/08/19 04/29/24 Jocelyne Bravo MD, MD PCP - General Internal Medicine 04/30/24 documented as of this encounter
--- OUTSIDE RECORDS SUMMARY | 2025-05-16 17:04 | XMS_ITS | Clinical Summary ---
Author Organization [facility] Address [address] [place] [address] Care Team Providers Care Player Development Manager Name Role Phone Afua Oakley PA-C Primary Care Provider [phone] Source Comments PLEASE NOTE, if this patient [...] tabletIndication s:depression associated with bipolar disorder,rxed by [facility]. looking for new Take 0.5 Tabs by mouth once daily. Indications: DEPRESSION ASSOCIATED WITH BIPOLAR DISORDER, rxed by [facility]. looking for new 15 Tab 3 [...] bx path 09/05/2015 Overview (09/18/2015): 08/26/15 Surgicenter [phone], Dr. Arnold Plaza MD, had upper GI [...] microscopic 04/17/2015 Overview (04/17/2015): Renal U/s normal [facility] 04/11/15. Kidneys are normal. No mass/stone/or [...] 0.4 12/10/2014 Eye doc: [facility] #[id number] Lab Results Component Value Date HGBA1C 6.2 02/25/2015 Perfect! On metformin 500 bid 04/08/15 signed form for home diabetic supplies through [facility] Lab Results Component Value Date [...] also never had PT: film done [facility] long ago. 09/13/14 film ordered, and refer to PT [facility] 09/27/14: Disc space narrowing L5-S1 which has progressed from last exam. No fx or sublux: pt aware of result Pt notes rec [facility] [phone] PT form signed 10/23/14 for cont therapy Depressive disorder, not elsewhere classified Overview (08/23/2014): not in conseling: by willing to try Resolved Problems Problem Noted Date Diagnosed Date Resolved Date H/O bone density study/normal Jun 02, 2015 06/14/2015 06/14/2015 Overview (08/19/2015): bmd done NORMAL 06/02/[address] [facility]; done secondary to metabolic bone disease, post menopausal [address] [address] A Member of the [facility] Patient: SPRING NICKERSON : 1965 Age: 50 Gender: F Account: [id number] Report: [facility] Dexa Axial Skeleton Ordered By: SOPHY OATES MD Date: 06/02/2015 3:29:09 PM Status: F DEXA (dual-energy x-ray absorptiometry) [id number] History: Metabolic bone disease. Post menopausal estrogen [...] IMPRESSION: Findings suggesting normal bone mineral density. 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
--- OUTSIDE RECORDS SUMMARY | 2025-05-16 17:04 | XMS_ITS | Clinical Summary ---
Author Organization [address] [facility] Address [address] [place] [address] Phone Care Team Providers Care Client Advisor Name Role Phone Jocelyne Bravo MD Primary Care Provider [phone] Allergies Active Allergy Reactions Criticality Noted Date [...] of right hand 02/04/2023 Depression 08/10/2018 Diabetes ([facility] V24, [facility] V28) 08/10/2018 Hyperlipidemia 08/10/2018 Resolved Problems Problem Noted Date Diagnosed Date Resolved Date Bunion, left 08/13/2024 12/07/2024 Encounters Date Type Department Care Team Description 03/21/2025 1:00 PM EDT Office Visit Orthopedic Surgery [facility] [address] [address] Kayden Rivera DPM Controlled type 2 diabetes with neuropathy ([facility] V24, [facility] V28) (Primary Dx); Pain in left foot; Ingrown toenail of right foot 02/28/2025 Telephone Orthopedic Surgery [facility] [address] [address] Kayden Rivera DPM from Last 3 Months Surgical History Surgery Date Site/Laterality Comments TUBAL LIGATION PROCEDURE: HISTORICAL TUBAL LIGATION COLONOSCOPY PROCEDURE: HISTORICAL COLONOSCOPY CARPAL TUNNEL RELEASE Bilateral ENDOMETRIAL ABLATION 07/25/2007 - 07/24/2008 Medical History Medical History Date Comments DM (diabetes mellitus) with complications ([facility] V24, [facility] V28) DX:DM (diabetes mellitus) w ith complications ([facility]) Hyperlipidemia DX:Hyperlipidemi a Depression DX:Depression Arthritis DX:Arthritis [...] PM EDT Office Visit Orthopedic Surgery - [place] [address] [address] Kayden Rivera, CHAD [address] [address] Health Maintenance Due Date Last Done Comments Colorectal Cancer Screening: Colonoscopy 1965 Diabetes: Annual GFR (Glomerular Filtration Rate) 1965 Diabetes: Annual Foot Exam 1975 Diabetes: Annual Retina Eye Exam 1975 Hepatitis B Vaccines (1 of 3 - 19+ 3-dose series) 1984 RSV Immunization Adult Patients (1 - Risk 50-74 years 1-dose series) 2015 Pneumococcal Vaccine: 50+ Years (2 of 2 [...] - Td or Tdap) 03/16/2028 03/16/2018, 08/23/2014 HIV Screening Completed 09/07/2019 HIB Vaccines Aged [...] this topic Medical Devices Implanted Type Area Radio Sales Account Executive Device Identifier Shelf Expiration Date Model / Serial / Lot Kit Reamer Minibunion - Sn/A - [id number] Implanted:Qty: 1 on 12/07/2024 by Kayden Rivera DPM at [facility] Internal and External Fixation Left: First Toe [employer] [id number] 01/10/2028 3100-000 1 / N/A / [id number] Kit Instrument Minibunion - Sn/A - [id number] Implanted:Qty: 1 on 12/07/2024 by Kayden Rivera DPM at [facility] Internal and External Fixation Left: First Toe [employer] [id number] 04/03/2028 3100-000 0 / N/A / [id number] Nail Minibunion Offset Short 3.5mm - Sn/A - [id number] Implanted:Qty: 1 on 12/07/2024 by Kayden Rivera DPM at [facility] Internal and External Fixation Left: First Toe [employer] [id number] 05/01/2028 3100-003 0 / N/A / [id number] Screw Non Lock Minibunion 2.7x14mm - Sn/A - [id number] Implanted:Qty: 1 on 12/07/2024 by Kayden Rivera DPM at [facility] Internal and External Fixation Left: First Toe [employer] [id number] 03/03/2025 3100-271 4NL / N/A / [id number] Screw Locking Minibunion 3x20mm - Sn/A - [id number] Implanted:Qty: 1 on 12/07/2024 by Kayden Rivera DPM at [facility] Internal and External Fixation Left: First Toe [employer] [id number] 12/28/2027 3100-302 0LK / N/A / [id number] Procedures Procedure Name Priority Date/Time Associated Diagnosis [...] * Depression Screening (08/10/2018) Depression Screening Abstracted Historical Provider HEALTH MAINTENANCE Final Result * Cervical Cancer Screening: HPV (01/04/2017) Cervical Cancer Screening: HPV Abstracted, Negative Historical Provider HEALTH MAINTENANCE Final Result from Last 3 Months or Most Recently Relevant to Health Maintenance Insurance [facility] [employer] Advance Directives Documents on File Type Date Recorded Patient Tank Assembler Expl anation Health Care Decision (hx) 08/10/2019 [...] currently active code status orders. Care Teams Client Advisor Relationship Specialty Start Date End Date Jocelyne Bravo MD [address] [place] [address] PCP - General 04/30/24
--- OUTSIDE RECORDS SUMMARY | 2025-05-16 17:04 | XMS_ITS | Encounter Summary ---
Author Organization [facility] Address [address] [facility] [place] [address] Care Team Providers Care Mucking Machine Operator Name Role Phone Jocelyne Bravo Md, MD Primary Care Provider Unavailable Juan Manuel Muñoz MD Primary Care Provider Unav ailable Jocelyne Bravo Md, MD Primary Care Provider Unavailable Reason for Visit * Reason Onset Date Comments Abnormal Mammogram 05/12/2018 Encounter Details Date Type Department Care Team Description 05/12/2018 Telephone Radiology - [address] [place] [address] Radiology, Authorizing Abnormal Mammogram Social History Tobacco Use Types Packs/Day Years Used Date Smoking Tobacco: Never Smokeless Tobacco: Never Alcohol Use Standard Drinks/Week Comments No 0 (1 standard drink = 0.6 oz pur e alcohol) Sex Assigned at Date Recorded Not on file documented as of this encounter Miscellaneous Notes * Telephone Encounter - Arlette Clancy - 05/12/2018 1:34 PM EDT Pt scheduled for right add views and breast u/s l.m . documented in this encounter Plan of Treatment Not on file documented as of this encounter Visit Diagnoses Not on filedocumented in this encounter Care Teams Mucking Machine Operator Relationship Specialty Start Date End Date Jocelyne Bravo MD, MD PCP - General Internal Medicine 10/22/16 1 Juan Manuel Muñoz MD PCP - General Family Practice 05/08/19 04/29/24 Jocelyne Bravo MD, MD PCP - General Internal Medicine 04/30/24 documented as of this encounter
--- OUTSIDE RECORDS SUMMARY | 2025-05-16 17:04 | XMS_ITS | Encounter Summary ---
Author Organization [facility] Address [address] [place] [address] Care Team Providers Care Clinic Physician Name Role Phone Juan Manuel Muñoz MD Primary Care Provider Jocelyne Dial Md, MD Primary Care Provider Unavailable Encounter Details Date Type Department Care Team Description 02/14/2023 Hospital Medical Records [address] [place] [address] Meal Pineda MD [address] [place] [id number] Social History Tobacco Use Types Packs/Day Years [...] suspected to have Coronavirus/COVID-19? No / Unsure 02/04/2023 12:53 PM EDT documented as of this encounter Plan of Treatment Not on file documented as of this encounter Visit Diagnoses Not on filedocumented in this encounter Care Teams Clinic Physician Relationship Specialty Start Date End Date Juan Manuel Muñoz MD PCP - General Family Practice 05/08/19 04/29/24 Jocelyne Bravo MD, MD PCP - General Internal Medicine 04/30/24 documented as of this encounter
--- OUTSIDE RECORDS SUMMARY | 2025-05-21 20:00 | XMS_ITS | Clinical Summary ---
Author Organization Unknown Care Team Providers Care Social Media Coordinator Name Role Phone ADIEL BAÑUELOS, OTTO FAJARDO Unavailable Unavaileli PEDERSON RN, SUN Unavailable Unavailable Payers Payer Name Policy Type Policy Number Effective Date Expira tion Date [facility] ([facility] [place] [id number] MEDICAID [facility] [id number] Problems Condition Name Condition Details Condition Category [...] on aerosol inhaler 01-23 00:00: 00 Yes [id number] 2 puff EVERY 4 HOURS 2 puff EVERY 4 HOURS (route: inhalation ) Med Classific ation: Respirato ry Therapy Agents citalopram 10 mg tablet 01-23 00:00: 00 Yes [id number] 2 tablet DAILY 2 tablet DAILY (route: oral) Med Classific ation: Central Nervous System Agents clotrimazol e-betametha sone 1 %-0.05 % topical cream 01-23 00:00: 00 Yes [id number] Per instruc tions 2 TIMES DAILY Per instructio ns 2 TIMES DAILY (route: topical) Med Classific ation: Dermatolo gical ibuprofen 800 mg tablet 01-23 00:00: 00 Yes [id number] 1 tablet 2 TIMES DAILY 1 tablet 2 TIMES DAILY (route: oral) Med Classific ation: Analgesic , Anti-infl ammatory or Antipyret ic metformin 1,000 mg tablet 01-23 00:00: 00 Yes [id number] 1 tablet 2 TIMES DAILY 1 tablet 2 TIMES DAILY (route: oral) Med Classific ation: Endocrine oxycodone 5 mg tablet 01-23 00:00: 00 03-21 23:59 :00 No [id number] 1 tablet EVERY 6 HOURS 1 tablet EVERY 6 HOURS (route: oral) Med Classific ation: Analgesic , Anti-infl ammatory or Antipyret ic Pain Relief (acetaminop hen) 650 mg tablet,exte nded release 01-23 00:00: 00 Yes [id number] 1 tablet EVERY 8 HOURS 1 tablet EVERY 8 HOURS (route: oral) Med Classific ation: Analgesic , Anti-infl ammatory or Antipyret ic trazodone 50 mg tablet 01-23 00:00: 00 Yes [id number] 1 tablet DAILY 1 tablet DAILY (route: oral) Med Classific ation: Central Nervous System Agents atorvastati n 20 mg tablet 03-24 00:00: 00 Yes [id number] 1 tablet DAILY 1 tablet DAILY (route: oral) Med Classific ation: Cardiovas cular Therapy Agents cetirizine 10 mg tablet 03-24 00:00: 00 Yes [id number] 1 tablet DAILY 1 tablet DAILY (route: oral) Med Classific ation: Respirato ry Therapy Agents dicyclomine 20 mg tablet 03-24 00:00: 00 Yes [id number] 1 tablet 3 TIMES DAILY 1 tablet 3 TIMES DAILY (route: oral) Med Classific ation: Gastroint estinal Therapy Agents famotidine 40 mg tablet 03-24 00:00: 00 Yes [id number] 1 tablet BEDTIME 1 tablet BEDTIME (route: oral) Med Classific ation: Gastroint estinal Therapy Agents ferrous sulfate 325 mg (65 mg iron) tablet,oksana yed release 03-24 00:00: 00 Yes [id number] 1 tablet DAILY 1 tablet DAILY (route: oral) Med Classific ation: Electroly te Balance-N utritiona l Products gabapentin 300 mg capsule 03-24 00:00: 00 Yes [id number] 1 capsule 3 TIMES DAILY 1 capsule 3 TIMES DAILY (route: oral) Med Classific ation: Central Nervous System Agents metoclopram rafael 10 mg tablet 03-24 00:00: 00 Yes [id number] 1 tablet 4 TIMES DAILY 1 tablet 4 TIMES DAILY (route: oral) Med Classific ation: Gastroint estinal Therapy Agents omeprazole 20 mg capsule,del ayed release 03-24 00:00: 00 Yes [id number] 1 capsule DAILY 1 capsule DAILY (route: oral) Med Classific ation: Gastroint estinal Therapy Agents sucralfate 1 gram tablet 03-24 00:00: 00 Yes [id number] 1 tablet 3 TIMES DAILY 1 tablet 3 TIMES DAILY (route: oral) Med Classific ation: Gastroint estinal Therapy Agents topiramate 25 mg tablet 03-24 00:00: 00 Yes [id number] 1 tablet 2 TIMES DAILY 1 tablet 2 TIMES DAILY (route: oral) Med Classific ation: Central Nervous System Agents Viberzi 100 mg tablet 03-24 00:00: 00 Yes [id number] 1 tablet 2 TIMES DAILY 1 tablet 2 TIMES DAILY (route: oral) Med Classific ation: Gastroint estinal Therapy Agents Immunizations Ordered Immunization Name Filled Immunization Name Date Status Comments Refusal Reason REFUSED FLU, PPV 2025-01-23 00:00:00 Vital Signs Vital Name Observation Time Observation Value Commen ts Temperature 2025-05-10 13:42:00.000 98.6 [degF] Temperature 2025-05-02 14:09:00.000 98.6 [degF] Temperature 2025-04-25 11:54:00.000 98.6 [degF] Temperature 2025-04-18 13:51:00.000 98.6 [degF] Temperature 2025-04-12 13:08:00.000 98.6 [degF] Temperature 2025-04-04 18:39:00.000 98.6 [degF] Temperature 2025-03-28 14:15:00.000 98.6 [degF] Pulse 2025-05-10 13:42:00.000 82 /min Pulse 2025-05-02 14:09:00.000 78 /min Pulse 2025-04-25 11:54:00.000 82 /min Pulse 2025-04-18 13:51:00.000 82 /min Pulse 2025-04-12 13:08:00.000 82 /min Pulse 2025-04-04 18:39:00.000 82 /min Pulse 2025-03-28 14:15:00.000 82 /min O2 Saturation (%) 2025-05-10 13:43:00.000 99 % Respirations 2025-05-10 13:42:00.000 20 /min Respirations 2025-05-02 14:09:00.000 20 /min Respirations 2025-04-25 11:54:00.000 20 /min Respirations 2025-04-18 13:51:00.000 20 /min Respirations 2025-04-12 13:08:00.000 20 /min Respirations 2025-04-04 18:39:00.000 20 /min Respirations 2025-03-28 14:15:00.000 20 /min Systolic Blood Pressure 2025-05-10 13:42:00.000 102 mm [Hg] Systolic Blood Pressure 2025-05-02 14:09:00.000 142 mm [Hg] Systolic Blood Pressure 2025-04-25 11:54:00.000 172 mm [Hg] Systolic Blood Pressure 2025-04-18 13:51:00.000 121 mm [Hg] Systolic Blood Pressure 2025-04-12 13:08:00.000 132 mm [Hg] Systolic Blood Pressure 2025-04-04 18:39:00.000 132 mm [Hg] Systolic Blood Pressure 2025-03-28 14:15:00.000 124 mm [Hg] Diastolic Blood Pressure 2025-05-10 13:42:00.000 [...] PRN VIRTUAL VISITS MAY BE PERFORMED UTILIZING [email or web address] SYSTEM TO OPTIMIZE SKILLED SERVICES FURNISHED ON THE PLAN OF CARE. SKILLED NURSE TO ESTABLISH SUPPORT MEASURES TO MINIMIZE RISK OF REHOSPITALIZATION, AND INSTRUCT PATIENT/CAREGIVER ON METHODS TO REDUCE AVOIDABLE HOSPITALIZATION. [code = VIRTUAL VISIT FREQUENCY: 1-6 PER WEEK X 3 WEEKS AND 6 PRN VIRTUAL VISITS MAY BE PERFORMED UTILIZING [employer] SYSTEM TO OPTIMIZE SKILLED SERVICES FURNISHED ON [...] MAINTAIN SITUATIONAL AWARENESS AND WILL NOTIFY CLINICAL BENEFITS SALES CONSULTANT AND PHYSICIAN/PROVIDER WITH ANY CHANGE IN CONDITION. [code = SKILLED NURSE TO PERFORM ENVIRONMENTAL SAFETY RISK ASSESSMENT AND FALL RISK ASSESSMENT AND PROVIDE INSTRUCTION TO IMPLEMENT ENVIRONMENTAL SAFETY AND FALL PREVENTION STRATEGIES THROUGHOUT THE CERTIFICATION PERIOD. SKILLED NURSE WILL MAINTAIN SITUATIONAL AWARENESS AND WILL NOTIFY CLINICAL BENEFITS SALES CONSULTANT AND PHYSICIAN/PROVIDER WITH ANY CHANGE IN CONDITION.] [...] AWARENESS FOR SAFETY AND WILL NOTIFY CLINICAL BENEFITS SALES CONSULTANT AND PHYSICIAN/PROVIDER WITH ANY CHANGE IN CONDITION. [code = SKILLED NURSE WILL MAINTAIN SITUATIONAL AWARENESS FOR SAFETY AND WILL NOTIFY CLINICAL BENEFITS SALES CONSULTANT AND PHYSICIAN/PROVIDER WITH ANY CHANGE IN CONDITION.] [...] CARE WILL BE ESTABLISHED THAT MEETS PATIENT'S LONG TERM NEEDS AND INCLUDES PATIENT GOAL FOR HOME [...] End Date/Time Encounter Type Admission Type Attending [facility] Department Encounter ID Discharge Date Discharge Status Discharge Condition Discharge Reason Percent Goals Met 2025-03-24 00:00:00 2025-05-22 00:00:00 Outpatient RECERTIFIC ATION SUN PEDERSON [facility] [id number] 0.00
== END 2025-05-16 13:54 | disposition home or self-care (01) ==
LOC: HO.HMCHD 13:31
PROVIDERS: PCP Student in an Organized Health Care Education/Training Program; Visit Provider Student in an Organized Health Care Education/Training Program
DX: E11.40 Type 2 diabetes mellitus with diabetic neuropathy, unspecified (principal); E78.5 Hyperlipidemia, unspecified; M77.11 Lateral epicondylitis, right elbow; D64.9 Anemia, unspecified; K58.0 Irritable bowel syndrome with diarrhea; K21.9 Gastro-esophageal reflux disease without esophagitis; J45.20 Mild intermittent asthma, uncomplicated

== ENCOUNTER → 2025-05-16 13:30 | Outpatient (BNVA) | payer OTHER, SELFPAY | PROVIDERS: PCP Student in an Organized Health Care Education/Training Program; Visit Provider Student in an Organized Health Care Education/Training Program | DX: E11.40 Type 2 diabetes mellitus with diabetic neuropathy, unspecified (principal); E78.5 Hyperlipidemia, unspecified; M77.11 Lateral epicondylitis, right elbow; D64.9 Anemia, unspecified; K58.0 Irritable bowel syndrome with diarrhea; K21.9 Gastro-esophageal reflux disease without esophagitis; J45.20 Mild intermittent asthma, uncomplicated; Z79.899 Other long term (current) drug therapy; Z71.89 Other specified counseling | CPT/HCPCS: 99211; 99212 ==

== ENCOUNTER → 2025-05-23 23:59 | Outpatient (BNV) | payer OTHER, SELFPAY | PROVIDERS: PCP Internal Medicine; Visit Provider Internal Medicine | DX: E11.40 Type 2 diabetes mellitus with diabetic neuropathy, unspecified (principal); E78.5 Hyperlipidemia, unspecified | CPT/HCPCS: G0179 ==

== ENCOUNTER 2025-05-30 13:28 | Outpatient (REF) | payer OTHER, SELFPAY | END 2025-05-30 13:29 | disposition home or self-care (01) | LOC: HO.MAMMO 13:28 | PROVIDERS: PCP Student in an Organized Health Care Education/Training Program; Visit Provider Internal Medicine | DX: Z12.31 Encounter for screening mammogram for malignant neoplasm of breast (principal) | CPT/HCPCS: 77063; 77067 ==

== ENCOUNTER → 2025-05-30 13:45 | Outpatient (BNV) | payer OTHER, SELFPAY | PROVIDERS: PCP Student in an Organized Health Care Education/Training Program; Visit Provider Internal Medicine | DX: Z12.31 Encounter for screening mammogram for malignant neoplasm of breast (principal) | CPT/HCPCS: 77063; 77067 ==

== ENCOUNTER 2025-06-28 08:18 | Day surgery (SDC) | payer OTHER, SELFPAY ==
--- OUTSIDE RECORDS SUMMARY | 2025-05-21 20:00 | XMS_ITS | Clinical Summary ---
Author Organization Unknown Care Team Providers Care Manager Of Hospital Name Role Phone ADIEL BAÑUELOS, OTTO FAJARDO Unavailable Unavaileli PEDERSON RN, SUN Unavailable Unavailable Payers Payer Name Policy Type Policy Number Effective Date Expira tion Date [facility] ([facility] [id number] MED[facility] [id number] Problems Condition Name Condition Details Condition Category Status Onset Date Resolution Date Last Treatment Date Treating Clinician Comments TYPE 2 DIABETES MELLITUS WITH DIABETIC NEUROPATHY, UNSP Active 01-17 00:00: 00 HYPERLIPIDEM IA, UNSPECIFIED Active 02-18 00:00: 00 ESSENTIAL (PRIMARY) HYPERTENSION Active 02-11 00:00: 00 MILD INTERMITTENT ASTHMA, UNCOMPLICATE D Active 02-11 00:00: 00 ANEMIA, UNSPECIFIED Active 02-04 00:00: 00 GASTRO-ESOPH AGEAL REFLUX DISEASE WITHOUT ESOPHAGITIS Active 02-11 00:00: 00 TYPE 2 DIABETES MELLITUS WITH HYPERGLYCEMI A Active 02-04 00:00: 00 MIXED IRRITABLE BOWEL SYNDROME Active 02-18 00:00: 00 ASYMPTOMATIC MENOPAUSAL STATE Active 02-11 00:00: 00 Allergies, Adverse Reactions, Alerts Allergy Name Allergy Type Status Severity Reaction(s) Onset Date Inactive Date Treating Clinician Comments PREDNISONE Propensity to adverse reactions Active 02-18 13:42: 12 Medications Ordered Medication Name Filled Medication Name Start Date Stop Date Current Medication? Ordering Clinician Indication Dosage Frequency Signature (SIG) Comments Components albuterol sulfate HFA 90 mcg/actuati on aerosol inhaler 01-23 00:00: 00 Yes [id number] 2 puff EVERY 4 HOURS 2 puff EVERY 4 HOURS (route: inhalation ) Med Classific ation: Respirato ry Therapy Agents citalopram 10 mg tablet 01-23 00:00: 00 Yes [id number] 2 tablet DAILY 2 tablet DAILY (route: oral) Med Classific ation: Central Nervous System Agents clotrimazol e-betametha sone 1 %-0.05 % topical cream 01-23 00:00: 00 Yes [id number] Per instruc tions 2 TIMES DAILY Per instructio ns 2 TIMES DAILY (route: topical) Med Classific ation: Dermatolo gical ibuprofen 800 mg tablet 01-23 00:00: 00 Yes [id number] 1 tablet 2 TIMES DAILY 1 tablet 2 TIMES DAILY (route: oral) Med Classific ation: Analgesic , Anti-infl ammatory or Antipyret ic metformin 1,000 mg tablet 01-23 00:00: 00 Yes [id number] 1 tablet 2 TIMES DAILY 1 tablet 2 TIMES DAILY (route: oral) Med Classific ation: Endocrine oxycodone 5 mg tablet 01-23 00:00: 00 03-21 23:59 :00 No [id number] 1 tablet EVERY 6 HOURS 1 tablet EVERY 6 HOURS (route: oral) Med Classific ation: Analgesic , Anti-infl ammatory or Antipyret ic Pain Relief (acetaminop hen) 650 mg tablet,exte nded release 01-23 00:00: 00 Yes [id number] 1 tablet EVERY 8 HOURS 1 tablet EVERY 8 HOURS (route: oral) Med Classific ation: Analgesic , Anti-infl ammatory or Antipyret ic trazodone 50 mg tablet 01-23 00:00: 00 Yes [id number] 1 tablet DAILY 1 tablet DAILY (route: oral) Med Classific ation: Central Nervous System Agents atorvastati n 20 mg tablet 03-24 00:00: 00 Yes [id number] 1 tablet DAILY 1 tablet DAILY (route: oral) Med Classific ation: Cardiovas cular Therapy Agents cetirizine 10 mg tablet 03-24 00:00: 00 Yes [id number] 1 tablet DAILY 1 tablet DAILY (route: oral) Med Classific ation: Respirato ry Therapy Agents dicyclomine 20 mg tablet 03-24 00:00: 00 Yes [id number] 1 tablet 3 TIMES DAILY 1 tablet 3 TIMES DAILY (route: oral) Med Classific ation: Gastroint estinal Therapy Agents famotidine 40 mg tablet 03-24 00:00: 00 Yes [id number] 1 tablet BEDTIME 1 tablet BEDTIME (route: oral) Med Classific ation: Gastroint estinal Therapy Agents ferrous sulfate 325 mg (65 mg iron) tablet,oksana yed release 03-24 00:00: 00 Yes [id number] 1 tablet DAILY 1 tablet DAILY (route: oral) Med Classific ation: Electroly te Balance-N utritiona l Products gabapentin 300 mg capsule 03-24 00:00: 00 Yes [id number] 1 capsule 3 TIMES DAILY 1 capsule 3 TIMES DAILY (route: oral) Med Classific ation: Central Nervous System Agents metoclopram rafael 10 mg tablet 03-24 00:00: 00 Yes [id number] 1 tablet 4 TIMES DAILY 1 tablet 4 TIMES DAILY (route: oral) Med Classific ation: Gastroint estinal Therapy Agents omeprazole 20 mg capsule,del ayed release 03-24 00:00: 00 Yes [id number] 1 capsule DAILY 1 capsule DAILY (route: oral) Med Classific ation: Gastroint estinal Therapy Agents sucralfate 1 gram tablet 03-24 00:00: 00 Yes [id number] 1 tablet 3 TIMES DAILY 1 tablet 3 TIMES DAILY (route: oral) Med Classific ation: Gastroint estinal Therapy Agents topiramate 25 mg tablet 03-24 00:00: 00 Yes [id number] 1 tablet 2 TIMES DAILY 1 tablet 2 TIMES DAILY (route: oral) Med Classific ation: Central Nervous System Agents Viberzi 100 mg tablet 03-24 00:00: 00 Yes [id number] 1 tablet 2 TIMES DAILY 1 tablet 2 TIMES DAILY (route: oral) Med Classific ation: Gastroint estinal Therapy Agents Immunizations Ordered Immunization Name Filled Immunization Name Date Status Comments Refusal Reason REFUSED FLU, PPV 2025-01-23 00:00:00 Vital Signs Vital Name Observation Time Observation Value Commen ts Temperature 2025-05-18 10:41:00.000 98.6 [degF] Temperature 2025-05-10 13:42:00.000 98.6 [degF] Temperature 2025-05-02 14:09:00.000 98.6 [degF] Temperature 2025-04-25 11:54:00.000 98.6 [degF] Temperature 2025-04-18 13:51:00.000 98.6 [degF] Temperature 2025-04-12 13:08:00.000 98.6 [degF] Temperature 2025-04-04 18:39:00.000 98.6 [degF] Temperature 2025-03-28 14:15:00.000 98.6 [degF] Pulse 2025-05-18 10:41:00.000 82 /min Pulse 2025-05-10 13:42:00.000 82 /min Pulse 2025-05-02 14:09:00.000 78 /min Pulse 2025-04-25 11:54:00.000 82 /min Pulse 2025-04-18 13:51:00.000 82 /min Pulse 2025-04-12 13:08:00.000 82 /min Pulse 2025-04-04 18:39:00.000 82 /min Pulse 2025-03-28 14:15:00.000 82 /min O2 Saturation (%) 2025-05-10 13:43:00.000 99 % Respirations 2025-05-18 10:41:00.000 20 /min Respirations 2025-05-10 13:42:00.000 20 /min Respirations 2025-05-02 14:09:00.000 20 /min Respirations 2025-04-25 11:54:00.000 20 /min Respirations 2025-04-18 13:51:00.000 20 /min Respirations 2025-04-12 13:08:00.000 20 /min Respirations 2025-04-04 18:39:00.000 20 /min Respirations 2025-03-28 14:15:00.000 20 /min Systolic Blood Pressure 2025-05-18 10:41:00.000 142 mm [Hg] Systolic Blood Pressure 2025-05-10 13:42:00.000 102 mm [Hg] Systolic Blood Pressure 2025-05-02 14:09:00.000 142 mm [Hg] Systolic Blood Pressure 2025-04-25 11:54:00.000 172 mm [Hg] Systolic Blood Pressure 2025-04-18 13:51:00.000 121 mm [Hg] Systolic Blood Pressure 2025-04-12 13:08:00.000 132 mm [Hg] Systolic Blood Pressure 2025-04-04 18:39:00.000 132 mm [Hg] Systolic Blood Pressure 2025-03-28 14:15:00.000 124 mm [Hg] Diastolic Blood Pressure 2025-05-18 10:41:00.000 88 mm [Hg] Diastolic Blood Pressure 2025-05-10 13:42:00.000 72 mm [Hg] Diastolic Blood Pressure 2025-05-02 14:09:00.000 82 mm [Hg] Diastolic Blood Pressure 2025-04-25 11:54:00.000 78 mm [Hg] Diastolic Blood Pressure 2025-04-18 13:51:00.000 74 mm [Hg] Diastolic Blood Pressure 2025-04-12 13:08:00.000 70 mm [Hg] Diastolic Blood Pressure 2025-04-04 18:39:00.000 82 mm [Hg] Diastolic Blood Pressure 2025-03-28 14:15:00.000 72 mm [Hg] Plan of Treatment Planned Activity [...] Future Scheduled Test SKILLED NU RSE TO O/A OF PATIENTS MENTAL/BEHAVIORAL STATUS, ASSESS VITAL SIGNS WEEKLY. ALLOW 2 PRNS FOR MEDICATION MANAGEMENT. [code = SKILLED NURSE TO O/A OF PATIENTS MENTAL/BEHAVIORAL STATUS, ASSESS VITAL SIGNS WEEKLY. ALLOW 2 PRNS FOR MEDICATION MANAGEMENT.] Future Scheduled Test SKILLED NU RSE FOR O/A OF GENERAL HEALTH STATUS OF PAIN, CARDIAC, RESPIRATORY, GASTROINTESTINAL, GENITOURINARY, SKIN, NEUROLOGIC, ENDOCRINE SYSTEMS TO IDENTIFY CHANGES ASSOCIATED WITH EXACERBATION FOR EARLY INTERVENTION OF COMPLICATIONS WEEKLY [code = SKILLED NURSE FOR O/A OF GENERAL HEALTH STATUS OF PAIN, CARDIAC, RESPIRATORY, GASTROINTESTINAL, GENITOURINARY, SKIN, NEUROLOGIC, ENDOCRINE SYSTEMS TO IDENTIFY CHANGES ASSOCIATED WITH EXACERBATION FOR EARLY INTERVENTION OF COMPLICATIONS WEEKLY] Future Scheduled Test SKILLED NU RSE TO OBTAIN BLOOD SUGAR PRN FOR SIGNS AND SYMPTOMS OF HYPO/HYPERGLYCEMIA. IF OBTAINED BY PATIENT/CAREGIVER PRIOR TO VISIT AND PATIENT IS NOT SYMPTOMATIC, SKILLED NURSE TO RECORD READING FROM PATIENT LOG. [code = SKILLED NURSE TO OBTAIN BLOOD SUGAR PRN FOR SIGNS AND SYMPTOMS OF HYPO/HYPERGLYCEMIA. IF OBTAINED BY PATIENT/CAREGIVER PRIOR TO VISIT AND PATIENT IS NOT SYMPTOMATIC, SKILLED NURSE TO RECORD READING FROM PATIENT LOG.] Future Scheduled Test SKILLED NU RSE FOR O/A OF MUSCULOSKELETAL STATUS AND TEACHING ON MEASURES TO MANAGE MUSCULOSKELETAL DISEASE) AND TO MAINTAIN SAFETY WITH ACTIVITY [code = SKILLED NURSE FOR O/A OF MUSCULOSKELETAL STATUS AND TEACHING ON MEASURES TO MANAGE MUSCULOSKELETAL DISEASE) AND TO MAINTAIN SAFETY WITH ACTIVITY] Future Scheduled Test SKILLED NU RSE FOR O/A AND TEACHING OF ENDOCRINE SYSTEM TO IDENTIFY CHANGES ASSOCIATED WITH EXACERBATION OF DIABETES FOR EARLY INTERVENTION OF COMPLICATIONS. [code = SKILLED NURSE FOR O/A AND TEACHING OF ENDOCRINE SYSTEM TO IDENTIFY CHANGES ASSOCIATED WITH EXACERBATION OF DIABETES FOR EARLY INTERVENTION OF COMPLICATIONS.] Future Scheduled Test SKILLED NU RSE FOR MONITORING, O/A AND TEACHING RELATED TO MANAGEMENT OF ANTICOAGULATION THERAPY INCLUDING DIET, MEDICATION SIDE EFFECTS, SAFETY MEASURES TO PREVENT INJURY, AND S/S TO REPORT. [code = SKILLED NURSE FOR MONITORING, O/A AND TEACHING RELATED TO MANAGEMENT OF ANTICOAGULATION THERAPY INCLUDING DIET, MEDICATION SIDE EFFECTS, SAFETY MEASURES TO PREVENT INJURY, AND S/S TO REPORT.] Future Scheduled Test SKILLED NU [...] Test SKILLED NU RSE FOR O/A AND SKILLED TEACHING RELATED TO MANAGEMENT OF DEPRESSIVE SYMPTOMS AND/OR DEPRESSION. SN TO REPORT SIGNIFICANT CHANGE IN DEPRESSIVE SYMPTOMS TO CLINICAL PROVIDER FOR EARLY INTERVENTION. [code = SKILLED NURSE FOR O/A AND SKILLED TEACHING RELATED TO MANAGEMENT OF DEPRESSIVE SYMPTOMS AND/OR DEPRESSION. SN TO REPORT SIGNIFICANT CHANGE IN DEPRESSIVE SYMPTOMS TO CLINICAL PROVIDER FOR EARLY INTERVENTION.] Future Scheduled Test VIRTUAL SIT FREQUENCY: 1-6 PER WEEK X 3 WEEKS AND 6 PRN VIRTUAL VISITS MAY BE PERFORMED UTILIZING TELECOMMUNICATIONS SYSTEM TO OPTIMIZE SKILLED SERVICES FURNISHED ON THE PLAN OF CARE. SKILLED NURSE TO ESTABLISH SUPPORT MEASURES TO MINIMIZE RISK OF REHOSPITALIZATION, AND INSTRUCT PATIENT/CAREGIVER ON METHODS TO REDUCE AVOIDABLE HOSPITALIZATION. [code = VIRTUAL VISIT FREQUENCY: 1-6 PER WEEK X 3 WEEKS AND 6 PRN VIRTUAL VISITS MAY BE PERFORMED UTILIZING TELECOMMUNICATIONS SYSTEM TO OPTIMIZE SKILLED SERVICES FURNISHED ON THE PLAN OF CARE. SKILLED NURSE TO ESTABLISH SUPPORT MEASURES TO MINIMIZE RISK OF REHOSPITALIZATION, AND INSTRUCT PATIENT/CAREGIVER ON METHODS TO REDUCE AVOIDABLE HOSPITALIZATION.] Future Scheduled Test SKILLED NU RSE TO PERFORM ENVIRONMENTAL SAFETY RISK ASSESSMENT AND FALL RISK ASSESSMENT AND PROVIDE INSTRUCTION TO IMPLEMENT ENVIRONMENTAL SAFETY AND FALL PREVENTION STRATEGIES THROUGHOUT THE CERTIFICATION PERIOD. SKILLED NURSE WILL MAINTAIN SITUATIONAL AWARENESS AND WILL NOTIFY CLINICAL CHOCOLATE TEMPERER AND PHYSICIAN/PROVIDER WITH ANY CHANGE IN CONDITION. [code = SKILLED NURSE TO PERFORM ENVIRONMENTAL SAFETY RISK ASSESSMENT AND FALL RISK ASSESSMENT AND PROVIDE INSTRUCTION TO IMPLEMENT ENVIRONMENTAL SAFETY AND FALL PREVENTION STRATEGIES THROUGHOUT THE CERTIFICATION PERIOD. SKILLED NURSE WILL MAINTAIN SITUATIONAL AWARENESS AND WILL NOTIFY CLINICAL CHOCOLATE TEMPERER AND PHYSICIAN/PROVIDER WITH ANY CHANGE IN CONDITION.] Future Scheduled Test SKILLED NU RSE FOR OBSERVATION AND ASSESSMENT OF PATIENT S PAIN LEVEL AND EFFECTIVENESS OF PAIN MANAGEMENT REGIMEN. SKILLED NURSE TO INSTRUCT PATIENT/CAREGIVER REGARDING PHARMACOLOGIC AND NON-PHARMACOLOGIC PAIN CONTROL MEASURES. SKILLED NURSE TO REPORT TO PHYSICIAN IF PAIN LEVEL IS OUTSIDE OF ESTABLISHED PARAMETERS. [code = SKILLED NURSE FOR OBSERVATION AND ASSESSMENT OF PATIENT S PAIN LEVEL AND EFFECTIVENESS OF PAIN MANAGEMENT REGIMEN. SKILLED NURSE TO INSTRUCT PATIENT/CAREGIVER REGARDING PHARMACOLOGIC AND NON-PHARMACOLOGIC PAIN CONTROL MEASURES. SKILLED NURSE TO REPORT TO PHYSICIAN IF PAIN LEVEL IS OUTSIDE OF ESTABLISHED PARAMETERS.] Future Scheduled Test SKILLED NU RSE TO PROVIDE ASSESSMENT AND TEACHING/REINFORCEMENT OF MANAGEMENT OF DEPRESSION INCLUDING DISEASE PROCESS, MEDICATION MANAGEMENT, COPING SKILLS AND IDENTIFY CHANGES ASSOCIATED WITH DEPRESSIVE DISORDERS FOR EARLY INTERVENTION. [code = SKILLED NURSE TO PROVIDE ASSESSMENT AND TEACHING/REINFORCEMENT OF MANAGEMENT OF DEPRESSION INCLUDING DISEASE PROCESS, MEDICATION MANAGEMENT, COPING SKILLS AND IDENTIFY CHANGES ASSOCIATED WITH DEPRESSIVE DISORDERS FOR EARLY INTERVENTION.] Future Scheduled Test SKILLED NU RSE TO PERFORM HOME SAFETY AND FALL ASSESSMENT AND PROVIDE INSTRUCTION TO IMPLEMENT HOME SAFETY AND FALL PREVENTION STRATEGIES. [code = SKILLED NURSE TO PERFORM HOME SAFETY AND FALL ASSESSMENT AND PROVIDE INSTRUCTION TO IMPLEMENT HOME SAFETY AND FALL PREVENTION STRATEGIES.] Future Scheduled Test SKILLED NU RSE FOR OBSERVATION AND ASSESSMENT OF PATIENT S PAIN LEVEL AND EFFECTIVENESS OF PAIN MANAGEMENT REGIMEN. SKILLED NURSE TO INSTRUCT PATIENT/CAREGIVER REGARDING PHARMACOLOGIC AND NON-PHARMACOLOGIC PAIN CONTROL MEASURES. SKILLED NURSE TO REPORT TO PHYSICIAN IF PAIN IS UNCONTROLLED WITH CURRENT PAIN MANAGEMENT REGIMEN. [code = SKILLED NURSE FOR OBSERVATION AND ASSESSMENT OF PATIENT S PAIN LEVEL AND EFFECTIVENESS OF PAIN MANAGEMENT REGIMEN. SKILLED NURSE TO INSTRUCT PATIENT/CAREGIVER REGARDING PHARMACOLOGIC AND NON-PHARMACOLOGIC PAIN CONTROL MEASURES. SKILLED NURSE TO REPORT TO PHYSICIAN IF PAIN IS UNCONTROLLED WITH CURRENT PAIN MANAGEMENT REGIMEN.] Future Scheduled Test PATIENT GARCÍA S A RISK OF HOSPITALIZATION AND ED USE. SKILLED NURSE TO ESTABLISH SUPPORT MEASURES TO MINIMIZE RISK OF HOSPITALIZATION AND ED USE, AND INSTRUCT PATIENT/CAREGIVER ON METHODS TO REDUCE AVOIDABLE HOSPITALIZATION AND ED USE. [code = PATIENT HAS A RISK OF HOSPITALIZATION AND ED USE. SKILLED NURSE TO ESTABLISH SUPPORT MEASURES TO MINIMIZE RISK OF HOSPITALIZATION AND ED USE, AND INSTRUCT PATIENT/CAREGIVER ON METHODS TO REDUCE AVOIDABLE HOSPITALIZATION AND ED USE.] Future Scheduled Test SKILLED NU RSE TO [...] PROBLEMS.] Future Scheduled Test SKILLED NU RSE WILL MAINTAIN SITUATIONAL AWARENESS FOR SAFETY AND WILL NOTIFY CLINICAL CHOCOLATE TEMPERER AND PHYSICIAN/PROVIDER WITH ANY CHANGE IN CONDITION. [code = SKILLED NURSE WILL MAINTAIN SITUATIONAL AWARENESS FOR SAFETY AND WILL NOTIFY CLINICAL CHOCOLATE TEMPERER AND PHYSICIAN/PROVIDER WITH ANY CHANGE IN CONDITION.] Future Scheduled Test SKILLED NU RSE TO PROVIDE INSTRUCTION TO PATIENT/CAREGIVER RELATED TO DISCHARGE PLANNING. [code = SKILLED NURSE TO PROVIDE INSTRUCTION TO PATIENT/CAREGIVER RELATED TO DISCHARGE PLANNING.] Future Scheduled Test SKILLED NU RSE TO REVIEW PATIENT MEDICATIONS (PRESCRIPTION/OTC). INSTRUCT PATIENT/CAREGIVER ON ALL MEDICATIONS INCLUDING PURPOSE, WHEN TO TAKE, IMPORTANCE OF MEDICATION ADHERENCE, MONITORING OF EFFECTIVENESS, ADVERSE DRUG REACTIONS, POSSIBLE SIDE EFFECTS, AND WHEN TO NOTIFY AGENCY OR PHYSICIAN/PROVIDER OF ANY CONCERNS. [code = SKILLED NURSE TO REVIEW PATIENT MEDICATIONS (PRESCRIPTION/OTC). INSTRUCT PATIENT/CAREGIVER ON ALL MEDICATIONS INCLUDING PURPOSE, WHEN TO TAKE, IMPORTANCE OF MEDICATION ADHERENCE, MONITORING OF EFFECTIVENESS, ADVERSE DRUG REACTIONS, POSSIBLE SIDE EFFECTS, AND WHEN TO NOTIFY AGENCY OR PHYSICIAN/PROVIDER OF ANY CONCERNS.] Goal 2025-03-21 Patient Goal - I WANT TO GET BETTER NOT FEAR FALLING AGAIN. Goal Patient Goal - I WANT TO GET BETTER NOT FEAR FALLING AGAIN. Goal Provider Goal - A PLAN OF CARE WILL BE ESTABLISHED THAT MEETS PATIENT'S DETENTION NEEDS AND INCLUDES PATIENT GOAL FOR HOME HEALTH. Goal Provider Goal - ALTERED MENTAL/BEHAVIORAL STATUS WILL BE IDENTIFIED PROMPTLY AND INTERVENTION INITIATED QUICKLY TO MINIMIZE ASSOCIATED RISKS THROUGHOUT CERTIFICATION PERIOD. Goal Provider Goal - CHANGE IN GENERAL HEALTH STATUS WILL BE IDENTIFIED AND REPORTED TO PHYSICIAN FOR PROMPT INTERVENTION TO MINIMIZE ASSOCIATED RISKS THROUGHOUT CERTIFICATION PERIOD. Goal Provider Goal - BLOOD SUGAR READING WILL BE OBTAINED ORDERED THROUGHOUT CERTIFICATION PERIOD. Goal Provider Goal - PATIENT/CAREGIVER WILL VERBALIZE/DEMONSTRATE ABILITY TO MANAGE MUSCULOSKELETAL DISEASE WHILE MAINTAINING SAFETY THROUGHOUT THE EPISODE. Goal Provider Goal - PATIENT/CAREGIVER WILL VERBALIZE SIGNS AND SYMPTOMS OF EXACERBATION OF DIABETES TO REPORT TO NURSE/PHYSICIAN THROUGHOUT THE CERTIFICATION PERIOD. Goal Provider Goal - PATIENT/CAREGIVER WILL VERBALIZE/DEMONSTRATE UNDERSTANDING OF MANAGEMENT OF ANTICOAGULATION THERAPY AND PT/INR WILL BE MAINTAINED AT A THERAPEUTIC LEVEL BY END OF EPISODE. Goal Provider Goal - PATIENT/CAREGIVER WILL VERBALIZE/DEMONSTRATE KNOWLEDGE OF DIABETIC MANAGEMENT. CHANGES IN DIABETIC STATUS WILL BE IDENTIFIED AND REPORTED TO PHYSICIAN FOR PROMPT INTERVENTION THROUGHOUT THE CERTIFICATION PERIOD. Goal Provider Goal - PATIENT WILL REMAIN SAFE WITHOUT DECOMPENSATION IN DEPRESSIVE CONDITION, WHILE MAINTAINING OPTIMAL LEVEL OF MENTAL HEALTH AND WELL BEING THROUGHOUT CERTIFICATION PERIOD. Goal Provider Goal - PATIENT/CAREGIVER WILL UTILIZE VIRTUAL VISITS TO ACHIEVE GOALS OUTLINED ON THE PLAN OF CABRE. PATIENT WILL HAVE SUPPORT MEASURES ESTABLISHED TO PREVENT HOSPITALIZATION AND PATIENT/CAREGIVER WILL VERBALIZE/DEMONSTRATE METHODS TO REDUCE AVOIDABLE HOSPITALIZATION THROUGHOUT THE CERTIFICATION PERIOD. Goal Provider Goal - PATIENT/CAREGIVER WILL VERBALIZE/DEMONSTRATE EFFECTIVE ENVIRONMENTAL SAFETY AND FALL PREVENTION STRATEGIES, WILL REMAIN SAFE IN THE COMMUNITY, AND WILL BE FREE OF DANGER TO [...] Goal Provider Goal - PATIENT/CAREGIVER WILL VERBALIZE/DEMONSTRATE UNDERSTANDING OF THE MANAGEMENT OF DEPRESSION THROUGHOUT THE CERTIFICATION PERIOD AND SYMPTOMS ARE IDENTIFIED AND MANAGED TO MAINTAIN PATIENT SAFETY IN THE HOME. Goal Provider Goal - PATIENT/CAREGIVER WILL VERBALIZE/DEMONSTRATE [...] OF CERTIFICATION PERIOD. Goal Provider Goal - PATIENT WILL HAVE SUPPORT MEASURES ESTABLISHED TO PREVENT HOSPITALIZATION AND ED USE AND PATIENT/CAREGIVER WILL VERBALIZE/DEMONSTRATE METHODS TO REDUCE AVOIDABLE HOSPITALIZATION AND ED USE BY END OF EPISODE. Goal Provider Goal - PATIENT/CAREGIVER WILL VERBALIZE UNDERSTANDING OF EDUCATION PROVIDED ON MEDICATIONS BY THE END OF THE CERTIFICATION PERIOD. Goal Provider Goal - PATIENT WILL REMAIN SAFE IN THE COMMUNITY AND WILL BE FREE OF DANGER TO SELF AND OTHERS THROUGHOUT THE CERTIFICATION PERIOD. Goal Provider Goal - PATIENT/CAREGIVER WILL VERBALIZE UNDERSTANDING OF DISCHARGE PLANNING INSTRUCTIONS BY DATE OF DISCHARGE. Goal Provider Goal - PATIENT/CAREGIVER WILL VERBALIZE UNDERSTANDING OF EDUCATION PROVIDED ON MEDICATIONS BY THE END OF THE CERTIFICATION PERIOD. Encounters Start Date/Time End Date/Time Encounter Type Admission Type Attending [facility] Care Department Encounter ID Discharge Date Discharge Status Discharge Condition Discharge Reason Percent Goals Met 2025-03-24 00:00:00 2025-05-22 00:00:00 Outpatient RECERTIFIC SUN DOSS [facility] [id number]
--- OUTSIDE RECORDS SUMMARY | 2025-05-23 15:00 | XMS_ITS | Encounter Summary ---
Author Organization [facility] Address [address] [place] [address] Care Team Providers Care Pv Design Engineer Name Role Phone Jocelyne Bravo MD Primary Care Provider [phone] Reason for Referral * Consultation (Routine) - Pending Review Specialty Diagnoses / Procedures Referred By Contdiann t Referred To Contact Orthopaedics / Orthopedic Diagnoses Painful orthopaedic hardware ([facility] V24) Kayden Rivera DPM [address] [place] [address] Phone: tel: fax: Mela Pineda MD [address] [facility] [address] [place] [address] Phone: tel: fax: Referral ID Status Reason Start Date Expiration Date Visits Requested Visits Authorized [id number] Pending Review Specialty Services Required 05/23/2026 1 1 Reason for Visit * Reason Comments DM Foot Care Controlled type 2 di abetes with neuropathy (CMS/HCC V24, CMS/HCC V28)Pain in left footIngrown toenail of right foot Encounter Details Date Type Department Care Team ([facility] st Contact Info) Description 05/23/2025 3:00 PM EDT Office Visit Orthopedic Surgery - [facility] [place] [address] [facility] [address] [place] [address] Kayden Rivera DPM [address] [place] [address] Left foot pain (Primary Dx); Controlled type 2 diabetes with neuropathy ([facility] V24, [facility] V28); Ingrown toenail of right foot; Right elbow pain; Painful orthopaedic hardware ([facility] V24) Social History Tobacco Use Types Packs/Day Years Used Date Smoking Tobacco: Former Cigarettes Smokeless Tobacco: Never Alcohol Use Standard Drinks/Week [...] as of this encounter Progress Notes * Kayden Rivera, DPM - 05/23/2025 3:00 PM EDT Referring MD: Shelly Last PCP visit: 04/18/2025 IDENTIFIER: Krishan is a 59 y.o. year old female who presents for consultation. CC: Bilateral foot pain HPI: 59-year-old diabetic female returns office chief complaint of bilateral foot pain. Patient notes recently she been having some increased tingling numbness of the feet bilaterally. Patient does have some pain in the right great toe where nail seems to impinge soft tissue. Patient's been using topical antibiotic for this. Patient notes that she is starting to feel some of the hardware at the medialaspect of the left great toe area. Patient is here for evaluation and treatment ROS: GENERAL: Pt denies nausea, fever, vomiting, chills, or shortness of breath. Pt in NAD. CARDIOLOGY: pt denies chest pain, palpitations LUNGS: pt denies shortness of breath MUSCULOSKELETAL: See HPI, otherwise no joint pain or swelling, back pain, or muscle pain. SKIN: see HPI, otherwise no lesions, rash or itching NEURO: No persistent headache, weakness or numbness The remainder of the review of systems is noncontributory PAST MEDICAL HISTORY: Patient Active Problem List Diagnosis Depression Diabetes ([facility] V24, [facility] V28) Hyperlipidemia Right carpal tunnel syndrome Trigger little finger of right hand Arthritis Gastroesophageal reflux disease without esophagitis Asthma SOCIAL HISTORY: Social History Tobacco Use Smoking status: Former Types: Cigarettes Smokeless tobacco: Never Substance Use Topics Alcohol use: No ACTIVE MEDICATIONS: No outpatient medications have been marked as taking for the 05/23/25 encounter (Office Visit) Rock Rivera DPM. ALLERGIES: @ALL@ PHYSICAL EXAM: There were no vitals taken for this visit. PODIATRIC EXAMINATION: GENERAL: Patient appears well nourished, with NAD. VASCULAR: Dorsalis pedis pulses are 2/4 bilaterally and Posterior tibial pulses are 2/4 bilaterally. Capillary filling time within normal limits the digits. No pallor on elevation or rubor on dependency. Positive hair growth. No varicosities. Denies rest pain or claudication pain. NEUROLOGICAL: Sharp/dull sensation intact, protective sensation intact on Knapp. Peripheral neuropathy throughout the feet bilaterally. ORTHOPEDIC: Good muscle strength 5/5 of all flexors and extensors. Dorsi flexion of ankle ,10 degrees, plantar flexion WNL. No muscle atrophy. Rectus alignment of the left toe on the medial column ofthe foot. Pain at the area of hardware to the medial aspect of the left foot DERMATOLOGICAL:.Scar tissue formation around the plate left foot. No open wounds or clinical signs of infection BIOMECHANICS: STJ ROM wnl, MTJ ROM wnl, 1st MPJ ROM wnl. IMAGING: Correction is maintained in good rectus alignment. Normal postoperative healing. IMPRESSION: 1. Left foot pain PLAN: Pt was seen and examined, history reviewed. Patient educated on the importance of good pedal hygiene and tight blood glucose control. Patient encouraged to maintain a healthy lifestyle with a well-balanced diet. Patient should never go barefoot and wear supportive shoe gear. Patient should aim for A1c less than 7% every month. Continue with regular appointments with PMD or diet counselor for tight medical management Patient is having pain within her right arm. Patient has seen Dr. Pineda previously for her left arm. New referral was placed for patient to follow-up with Dr. Pineda for right elbow Surgical Planning visit: PLAN: During today???s visit we discussed at great length the etiology, prognosis, and treatment options for the patient???s condition. Risks and benefits of operative and non operative treatment options were discussed. Treatment options for left foot painful hardware correction were discussed, non- operative treatmentwould involve tapping, strapping, adjustments in shoe gear, orthotics insoles, rest, bracing and edema control. There is potential for the deformities to stabilize without surgery yet there may stillbe a need for delayed surgery and joint distructive procedures. There is potential for non- union with surgery and non-operative care would avoid incision problems, fixation complications and anesthesia risks. Surgery has added risks including but not limited to infection, incision pain, neuritis ornumbness reoccurance of deformity, scar tissue contracture, worsening of deformity and eventual need for removal of hardware. Removal of painful orthopedic hardware left foot healing was discussed inrelation to operative treatment. Recovery and post operative immobilization was discussed based on the various treatment options. A decision was made to pursue removal of painful hardware left foot surgery. Patient voices understanding of the risks and benefits and would like to proceed with surgery. Weight bearing status: Weightbearing in surgical shoe for 2 weeks Work&Activity restrictions: Impact of undergoing surgery to work and daily activity was discussed today Pain management: Postoperative pain regiment were discussed in great detail with the patient. The patient was also encouraged to aggressively elevate and ice postoperatively to help with swelling andpain control. The patient was in agreement with this plan. The patient will be prescribed IbuprofenTylenol Oxycodone for postoperative pain management. VTE Risk assessment: Risk of DVT/ PE were discussed in relation to immobilization, inactivity, injury, surgery, medication and personal risk factors. Signs and symptoms of a blood clot were discussedincluding action plan if the patient experiences these signs or symptoms. Methods of prevention and risk reduction were explained. Mechanical prophylaxis including ROM and mobilization is encouraged as much as possible. The patient???s risk for deep vein thrombosis was also assessed today. In regards to major risk factors they: Do not have personal history of DVT Do not have known active cancer Do not have known clotting disorder Do not have family history of DVT Pending foot surgery and current level of immobilization are risk factors. Measure taken to decrease their risk of deep vein thrombosis will consist of detailed education, as well as lower extremity range of motion. Chemical prophylaxis is not recommended based on patients history, procedure and postoperative plan. We discussed ASA 325mg qd as a precautionary measure to further decrease potential for clot formation for as long as the postoperative offloading device is required Planned procedure(s): Removal of painful orthopedic hardware left foot surgery WB status: Weightbearing as tolerated in surgical shoe for 2 weeks DVT Prophylaxis: 325 mg QD Pain medication: Ibuprofen Tylenol Oxycodone Kayden Rivera DPM documented in this encounter Plan of Treatment Upcoming Encounters Date Type Department Care Team (Late st Contact Info) Description 06/25/2025 3:00 PM EST Office Visit Orthopedic Surgery [facility] 175 [facility] [address] [place] [phone] Mela Pineda MD [address] [place] [phone] 07/29/2025 2:30 PM EST Office Visit Orthopedic Surgery [facility] [address] [facility] [address] [place] [phone] Kayden Rivera DPM [address] [place] [address] Pending Results Name Type Priority Associated Diagnoses Date /Time XR Foot 3+ Views Left Imaging Routine Left foot pain 05/23/2025 3:49 PM EDT Scheduled Orders Name Type Priority Associated Diagnoses Orde r Schedule XR Foot 3+ Views Left Imaging Routine Left foot pain Expected: 05/23/2025, Expires: 05/23/2026 Scheduled Procedures Name Priority Associated Diagnoses Date/Ti me REMOVAL FIXATION DEVICE INTE RNAL EXTR LOWER Painful orthopaedic hardware ([facility] V24) Scheduled Referrals Name Type Priority Associated Diagnoses Order Schedule Ambulatory referral to Orthopedic Outpatient Referral Routine Painful orthopaedic hardware ([facility] V24) 1 Occurrences starting 05/23/2025 until 05/23/2026 documented as of this encounter Goals Goal Patient Goal Type Associated Problems Recent Progress Patient-Stated? Author Autogenerat ed Goal Care Plan Autogenerated Problem No Kayden Rivera DPM documented as of this encounter Visit Diagnoses Diagnosis Left foot pain- Primary Pain in soft tissues of limb Controlled type 2 diabetes with neuropathy ([facility] V24, [facility] V28) Type II or unspecified type diabetes mellitus with neurological manifestations, not stated as uncontrolled Ingrown toenail of right foot Right elbow pain Pain in joint, upper arm Painful orthopaedic hardware ([facility] V24) documented in this encounter Orders Case Request Count Last Ordered Date First Orde red Date CASE REQUEST OPERATING ROOM 1 05/23/2025 documented in this encounter Additional Health Concerns Active Problems Noted Date Diagnosed Date Autogenerated Problem 05/23/2025 documented as of this encounter Care Teams Pv Design Engineer Relationship Specialty Start Date End Date Jocelyne Bravo MD [address] [place] [address] PCP - General 04/30/24 documented as of this encounter
--- OUTSIDE RECORDS SUMMARY | 2025-05-24 07:46 | XMS_ITS | Clinical Summary ---
Author Organization 175 [facility] Address [address] [place] [address] Phone Care Team Providers Care Petrology Teacher Name Role Phone Jocelyne Bravo MD Primary Care Provider [phone]- [phone] Allergies Active Allergy Reactions Criticality Noted Date [...] Active Problems Problem Noted Date Diagnosed Date Painful orthopaedic hardware ([facility] V24) 05/23 Gastroesophageal reflux disease without esophagi tis 12/07/2024 Asthma 12/07/2024 Arthritis 12/06/2024 Right carpal tunnel syndrome 02/04/2023 Trigger little finger of right hand 02/04/2023 Depression 08/10/2018 Diabetes ([facility] [place], [facility] V28) 08/10/2018 Hyperlipidemia 08/10/2018 Resolved Problems Problem Noted Date Diagnosed Date Resolved Date Kimberley, left 08/13/2024 12/07/2024 Encounters Date Type Department Care Team Description 05/23/2025 3:00 PM EDT Office Visit Orthopedic Surgery [facility] [address] [address] Kayden Rivera DPM Left foot pain (Primary Dx); Controlled type 2 diabetes with neuropathy ([facility] V24, [facility] V28); Ingrown toenail of right foot; Right elbow pain; Painful orthopaedic hardware ([facility] V24) 03/21/2025 1:00 PM EDT Office Visit Orthopedic Surgery [facility] [address] [address] Kayden Rivera DPM Controlled type 2 diabetes with neuropathy ([facility] [place], [facility] V28) (Primary Dx); Pain in left foot; Ingrown toenail of right foot 02/28/2025 Telephone Orthopedic Surgery [facility] [address] [address] Kayden Rivera DPM from Last 3 Months Surgical History Surgery Date Site/Laterality Comments TUBAL LIGATION PROCEDURE: HISTORICAL TUBAL LIGATION COLONOSCOPY PROCEDURE: HISTORICAL COLONOSCOPY CARPAL TUNNEL RELEASE Bilateral ENDOMETRIAL ABLATION 07/25/2007 - 07/24/2008 Medical History Medical History Date Comments DM (diabetes mellitus) with complications ([facility] V24, [facility] V28) DX:DM (diabetes mellitus) w ith complications ([facility]) Hyperlipidemia DX:Hyperlipidemi a Depression DX:Depression Arthritis DX:Arthritis [...] 3:00 PM EST Office Visit Orthopedic Surgery [facility] [address] [facility] [address] [place] [phone] Mela Pineda MD [address] [place] [address] 07/29/2025 2:30 PM EST Office Visit Orthopedic Surgery [facility] [address] [facility] [address] [place] [phone] Kayden Rivera DPM [address] [place] [address] Scheduled Procedures Name Priority Associated Diagnoses Date/Ti me REMOVAL FIXATION DEVICE INTE RNAL EXTR LOWER Painful orthopaedic hardware ([facility] V24) Health Maintenance Due Date Last Done Comments [...] on patient's age to complete this topic Goals Goal Patient Goal Type Associated Problems Recent Progress Patient-Stated? Author Autogenerat ed Goal Care Plan Autogenerated Problem No Kayden Rivera DPM Medical Devices Implanted Type Area Tomb Maker Helper Device Identifier Shelf Expiration Date Model / Serial / Lot Kit Reamer Minibunion - Sn/A - [id number] Implanted:Qty: 1 on 12/07/2024 by Kayden Rivera DPM at [facility] Internal and External Fixation Left: First Toe [employer] [id number] 01/10/2028 3100-000 1 / N/A / [id number] Kit Instrument Minibunion - Sn/A - [id number] Implanted:Qty: 1 on 12/07/2024 by Kayden Rivera DPM at [facility] Internal and External Fixation Left: First Toe [employer] [id number] 04/03/2028 3100-000 0 / N/A / [id number] Nail Minibunion Offset Short 3.5mm - Sn/A - [id number] Implanted:Qty: 1 on 12/07/2024 by Kayden Rivera DPM at [facility] Internal and External Fixation Left: First Toe [employer] [id number] 05/01/2028 3100-003 0 / N/A / [id number] Screw Non Lock Minibunion 2.7x14mm - Sn/A - [id number] Implanted:Qty: 1 on 12/07/2024 by Kayden Rivera DPM at [facility] Internal and External Fixation Left: First Toe [employer] [id number] 03/03/2025 3100-271 4NL / N/A / [id number] Screw Locking Minibunion 3x20mm - Sn/A - [id number] Implanted:Qty: 1 on 12/07/2024 by Kayden Rivera DPM at [facility] Internal and External Fixation Left: First Toe [employer] [id number] 12/28/2027 3100-302 0LK / N/A / [id number] Procedures Procedure Name Priority Date/Time Associated Diagnosis Comments HIV SCREENING Routine 09/07/2019 SCR MAMMO BI INCL CAD Routine 05/08/2019 1:52 PM EDT Encounter for screening mammogram for malignant neoplasm of breast DEPRESSION SCREENING Routine 08/10/2018 HPV Routine 01/04/2017 from Last 3 Months or Most Recently Relevant to Health Maintenance Results * HIV Screening (09/07/2019) Pathologist [facility] HIV Screening Abstracted us Historical Provider MD [...] Resul t * Depression Screening (08/10/2018) Pathologist [facility] Depression Screening Abstracted Historical Provider HEALTH MAINTENANCE Final Result * Cervical Cancer Screening: HPV (01/04/2017) [facility] Cervical Cancer Screening: HPV Abstracted, Negative Historical Provider HEALTH MAINTENANCE Final Result from Last 3 Months or Most Recently Relevant to Health Maintenance Additional Health Concerns Active Problems Noted Date Diagnosed Date Autogenerated Problem 05/23/2025 Insurance [facility] [place] [phone] Advance Directives Documents on File Type Date Recorded Patient Deli Manager Expl anation Health Care Decision (hx) 08/10/2019 [...] currently active code status orders. Care Teams Petrology Teacher Relationship Specialty Start Date End Date Jocelyne Bravo MD [address] [place] [address] PCP - General 04/30/24
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
[2025-06-28 08:58] VITALS: BMI 22.8
[2025-06-28] MEDS: Lactated Ringers 1,000 ML 100 ML IVCONT (09:17)
[2025-06-28 09:18] VITALS: BP 131/74; PULSE 100; RESP 16; TEMP 36.9; O2SAT 99
[2025-06-28 09:19] LABS: Glucose, Whole Blood 131 mg/dL (60-115)
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
--- NOTE | 2025-06-28 10:10 | P.OPN-COLO_ITS ---
Colonoscopy Operative Note Operative Note Date of Service: 06/28/25 Narrative: Procedure: Upper endoscopy and colonoscopy Indication: Personal hx of gastric ulcer, fam hx of gastric ca, CRC screening Endoscopist: Jess Robison MD Anesthesia Provider: Dr Palma Anesthesia type: MAC Instrument: [id number]-H190 and PCF-[id number] EGD Procedure:?? The procedure, indications, preparation and potential complications were reviewed with the patient, who indicated understanding and gave written informed consent to proceed. The endoscope was introduced through the mouth, and advanced to the 2nd part of the duodenum. The mucosa was carefully examined on slow withdrawal of the endoscope. The patient tolerated the procedure well. There were no immediate complications.? EGD Findings:? * Esophagus:? Normal esophageal mucosa was noted. The Z-line was at 35 cm. * Stomach:? A single erosion noted in proximal gastric body along the greater curvature. Retroflexion was performed in the cardia. Jumbo cold forceps biopsies were taken from the stomach as per Alejandra protocol. * Duodenum:? Normal duodenal mucosa. Colonoscopy Procedure:? The patient was then turned for the colonoscopy. A digital rectal exam was performed which was normal .? A distal attachment cap was affixed to the tip of the scope and the colonoscope was then inserted through the anus and advanced through the colon and advanced to the cecum at 75 cm and terminal ileum.? Appendiceal orifice and ileocecal valve were identified. Mucosa was carefully examined under high definition white light as the instrument was slowly withdrawn in a retrograde panoramic fashion. Retroflexion was performed in ascending colon and rectum. The procedure was not difficult. The quality of the prep was BBPS: 3+3+3 = adequate Withdrawal time 9 minutes Limitations: No limitations Findings: Mucosa: Normal colon and terminal ileum mucosa. Protruding lesions: * Medium internal hemorrhoids without stigmata of recent bleeding. Excavated lesions: * mild diverticulosis of left colon. Impression: 1. Normal esophagus 2. gastritis (biopsy) 3. Normal duodenum 4. Normal colon and terminal ileum mucosa 5. Diverticulosis 6. Internal hemorrhoids Recommendations:?? * Follow-up path results * Avoid NSAIDs * Cont PPI * H Pylori treatment if biopsies + * Repeat EGD contingent on findings of any GIM. * Repeat colonoscopy for CRC screening in 10 years.
[2025-06-28 10:52] VITALS: BP 128/50; PULSE 70; RESP 16; TEMP 36.6; O2SAT 98
[2025-06-28 11:10] VITALS: BP 132/60; PULSE 74; RESP 17; TEMP 36.6; O2SAT 100
== END 2025-06-28 12:08 | disposition home or self-care (01) ==
PROVIDERS: PCP Student in an Organized Health Care Education/Training Program; Visit Provider Internal Medicine
PROC: (CPT 45378; principal; 2025-06-28 11:00)
DX: Z12.11 Encounter for screening for malignant neoplasm of colon (principal); K25.9 Gastric ulcer, unspecified as acute or chronic, without hemorrhage or perforation; Z80.0 Family history of malignant neoplasm of digestive organs; R10.9 Unspecified abdominal pain; K58.0 Irritable bowel syndrome with diarrhea; K64.8 Other hemorrhoids; K57.30 Diverticulosis of large intestine without perforation or abscess without bleeding; K29.70 Gastritis, unspecified, without bleeding
CPT/HCPCS: 45378; 43239; 82947; 88305; 88313; 88342; J2003; J2704; J3010

== ENCOUNTER → 2025-06-28 08:18 | Outpatient (BNV) | payer OTHER, SELFPAY | PROVIDERS: PCP Student in an Organized Health Care Education/Training Program; Visit Provider Internal Medicine | DX: Z12.11 Encounter for screening for malignant neoplasm of colon (principal); K57.90 Diverticulosis of intestine, part unspecified, without perforation or abscess without bleeding; K64.8 Other hemorrhoids; Z80.0 Family history of malignant neoplasm of digestive organs; K29.70 Gastritis, unspecified, without bleeding | CPT/HCPCS: 43239; 45378 ==

== ENCOUNTER 2025-07-09 12:15 | Outpatient (AMB) | payer OTHER, SELFPAY ==
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
[2025-07-09 12:26] VITALS: BP 129/62; PULSE 97; BMI 24.1
--- OUTSIDE RECORDS SUMMARY | 2025-07-09 16:06 | XMS_ITS | Clinical Summary ---
Author Organization [address] [facility] Address [address] [place] [address] Phone Care Team Providers Care Curing Bin Operator Name Role Phone Jocelyne Bravo MD Primary Care Provider [phone] Allergies Active Allergy Reactions Criticality Noted Date [...] Noted Date Diagnosed Date Painful orthopaedic hardware 05/23/2025 Gastroesophageal reflux disease without esophagi tis 12/07/2024 Asthma 12/07/2024 Arthritis 12/06/2024 Right carpal tunnel syndrome 02/04/2023 Trigger little finger of right hand 02/04/2023 Depression 08/10/2018 Diabetes 08/10/2018 Hyperlipidemia 08/10/2018 Resolved Problems Problem Noted Date Diagnosed Date Resolved Date Bunion, left 08/13/2024 12/07/2024 Encounters Date Type Department Care Team Description 05/23/2025 3:00 PM EDT Office Visit Orthopedic Surgery - [place] [address] [facility] [address] [place] [id number] Kayden Rivera DPM Left foot pain (Primary Dx); Controlled type 2 diabetes with neuropathy (CMS/HCC V24, CMS/HCC V28); Ingrown toenail of right foot; Right elbow pain; Painful orthopaedic hardware ([facility]/HCC V24) from Last 3 Months Surgical History Surgery [...] on file Sexual Orientation Not on file Last Filed Vital Signs [...] Care Team (Late st Contact Info) Description 07/29/2025 11:45 AM EST Office Visit Orthopedic Surgery [facility] 175 [facility] [address] [place] [phone] Mela Pineda MD 175 [facility] [address] [place] [phone] 07/29/2025 2:30 PM EST Office Visit Orthopedic [facility] [address] [facility] [address] [place] [phone] Kayden Rivera DPM [address] [address] Scheduled Procedures Name Priority Associated Diagnoses Date/Ti me REMOVAL FIXATION DEVICE INTE RNAL EXTR LOWER Painful orthopaedic hardware ([facility] V24) Health Maintenance Due Date Last Done Comments Colorectal Cancer Screening: Colonoscopy 1965 Diabetes: Annual GFR (Glomerular Filtration Rate) 1965 Diabetes: Annual Foot Exam 1975 Diabetes: Annual Retina Eye Exam 1975 RSV Immunization Adult Patients (1 - Risk 50-74 years 1-dose series) 2015 Pneumococcal Vaccine: 50+ Years (2 of 2 - PPSV23, PCV20, or PCV21) 08/21/2015 06/26/2015 Cervical Cancer Screening: Pap Smear 01/05/2020 01/04/2017 Breast Cancer Screening 05/08/2021 05/08/20 19, [...] patient's age to complete this topic Hepatitis B Vaccines Aged Out No long er eligible [...] Rivera DPM Medical Devices Implanted Type Area Marketing Proposal Specialist Device Identifier Shelf Expiration Date Model / Serial / Lot Kit Reamer Minibunion - Sn/A - [id number] Implanted:Qty: 1 on 12/07/2024 by Kayden Rivera DPM at [facility] Internal and External Fixation Left: First Toe [employer] [id number] 01/10/2028 3100-000 1 / N/A / [id number] Kit Instrument Minibunion - Sn/A - [id number] Implanted:Qty: 1 on 12/07/2024 by Kayden Rivera DPM at [facility] Internal and External Fixation Left: First Toe [employer] [id number] 04/03/2028 3100-000 0 / N/A / [id number] Nail Minibunion Offset Short 3.5mm - Sn/A - [id number] Implanted:Qty: 1 on 12/07/2024 by Kayden Rivera DPM at [facility] Internal and External Fixation Left: First Toe [employer] [id number] 05/01/2028 3100-003 0 / N/A / [id number] Screw Non Lock Minibunion 2.7x14mm - Sn/A - [id number] Implanted:Qty: 1 on 12/07/2024 by Kayden Rivera DPM at [facility] Internal and External Fixation Left: First Toe [employer] [id number] 03/03/2025 3100-271 4NL / N/A / [id number] Screw Locking Minibunion 3x20mm - Sn/A - [id number] Implanted:Qty: 1 on 12/07/2024 by Kayden Rivera DPM at [facility] Internal and External Fixation Left: First Toe [employer] [id number] 12/28/2027 3100-302 0LK / N/A / [id number] Procedures Procedure Name Priority Date/Time Associated Diagnosis Comments XR FOOT 3+ VIEWS LEFT Routine 05/23/2025 3:49 PM EDT Left foot pain HIV SCREENING Routine 09/07/2019 [facility] MAMMO BI INCL CAD Routine 05/08/2019 1:52 PM EDT Encounter for screening mammogram for malignant neoplasm of breast DEPRESSION SCREENING Routine 08/10/2018 PAP SMEAR Routine 01/04/2017 from Last 3 Months or Most Recently Relevant to Health Maintenance Results * XR Foot 3+ Views Left (05/23/2025 3:49 PM EDT) Anatomical Region Laterality Modality Lower Extremities, Foot Left Computed Radiography Narrative 06/03/2025 9:29 PM EST Left foot 3 views weightbearing: Rectus alignment of the great toe on the first MPJ and along the medial column. Some sclerosis to the bones throughout. Hardware is in proper positioning without subsidence or retraction Kayden Rivera DPM IMG XR PROCEDURES Final Res ult * HIV Screening (09/07/2019) HIV Screening Abstracted [...] Historical Provider HEALTH MAINTENANCE Final Result * Pap Smear (01/04/2017) Pap smear Abstracted, Negative Historical Provider HEALTH MAINTENANCE Final Result from Last 3 Months or Most Recently Relevant to Health Maintenance Additional Health Concerns Active Problems Noted Date Diagnosed Date Autogenerated Problem 05/23/[address] [place] [phone] [facility] Advance Directives Documents on File Type Date Recorded Patient Assistant Winemaker Expl anation Health Care Decision (hx) 08/10/2019 [...] currently active code status orders. Care Teams Curing Bin Operator Relationship Specialty Start Date End Date Jocelyne Bravo MD [address] [facility] [place] [address] PCP - General 04/30/24
--- OUTSIDE RECORDS SUMMARY | 2025-07-20 19:00 | XMS_ITS | Clinical Summary ---
Author Organization Unknown Care Team Providers Care [employer] G[employer] Name Role Phone ADIEL BAÑUELOS, OTTO FAJARDO Unavailable Unavaileli PEDERSON RN, SUN Snowden Unavailable Payers Payer Name Policy Type Policy Number Effective Date Expira tion Date [facility] [place] [place] [id number] MEDICAID [facility] [id number] Problems Condition Name Condition Details Condition Category [...] on aerosol inhaler 01-23 00:00: 00 Yes [id number] 2 puff EVERY 4 HOURS 2 puff EVERY 4 HOURS (route: inhalation ) Med Classific ation: Respirato ry Therapy Agents citalopram 10 mg tablet 01-23 00:00: 00 05-22 23:59 :00 No [id number] 2 tablet DAILY 2 tablet DAILY (route: oral) Med Classific ation: Central Nervous System Agents clotrimazol e-betametha sone 1 %-0.05 % topical cream 01-23 00:00: 00 05-22 23:59 :00 No [id number] Per instruc tions 2 TIMES DAILY Per instructio ns 2 TIMES DAILY (route: topical) Med Classific ation: Dermatolo gical ibuprofen 800 mg tablet 01-23 00:00: 00 05-22 23:59 :00 No [id number] 1 tablet 2 TIMES DAILY 1 tablet 2 TIMES DAILY (route: oral) Med Classific ation: Analgesic , Anti-infl ammatory or Antipyret ic metformin 1,000 mg tablet 01-23 00:00: 00 05-22 23:59 :00 No [id number] 1 tablet 2 TIMES DAILY 1 tablet 2 TIMES DAILY (route: oral) Med Classific ation: Endocrine oxycodone 5 mg tablet 01-23 00:00: 00 03-21 23:59 :00 No [id number] 1 tablet EVERY 6 HOURS 1 tablet EVERY 6 HOURS (route: oral) Med Classific ation: Analgesic , Anti-infl ammatory or Antipyret ic Pain Relief (acetaminop hen) 650 mg tablet,exte nded release 01-23 00:00: 00 05-23 23:59 :00 No [id number] 1 tablet EVERY 8 HOURS 1 tablet EVERY 8 HOURS (route: oral) Med Classific ation: Analgesic , Anti-infl ammatory or Antipyret ic trazodone 50 mg tablet 01-23 00:00: 00 05-22 23:59 :00 No [id number] 1 tablet DAILY 1 tablet DAILY (route: oral) Med Classific ation: Central Nervous System Agents atorvastati n 20 mg tablet 8-31 00:00: 00 05-22 23:59 :00 No [id number] 1 tablet DAILY 1 tablet DAILY (route: oral) Med Classific ation: Cardiovas cular Therapy Agents cetirizine 10 mg tablet 03-24 00:00: 00 05-22 23:59 :00 No [id number] 1 tablet DAILY 1 tablet DAILY (route: oral) Med Classific ation: Respirato ry Therapy Agents dicyclomine 20 mg tablet 03-24 00:00: 00 05-22 23:59 :00 No [id number] 1 tablet 3 TIMES DAILY 1 tablet 3 TIMES DAILY (route: oral) Med Classific ation: Gastroint estinal Therapy Agents famotidine 40 mg tablet 03-24 00:00: 00 Yes [id number] 1 tablet BEDTIME 1 tablet BEDTIME (route: oral) Med Classific ation: Gastroint estinal Therapy Agents ferrous sulfate 325 mg (65 mg iron) tablet,oksana yed release 03-24 00:00: 00 05-22 23:59 :00 No [id number] 1 tablet DAILY 1 tablet DAILY (route: oral) Med Classific ation: Electroly te Balance-N utritiona l Products gabapentin 300 mg capsule 03-24 00:00: 00 05-22 23:59 :00 No [id number] 1 capsule 3 TIMES DAILY 1 capsule 3 TIMES DAILY (route: oral) Med Classific ation: Central Nervous System Agents metoclopram rafael 10 mg tablet 03-24 00:00: 00 05-22 23:59 :00 No [id number] 1 tablet 4 TIMES DAILY 1 tablet 4 TIMES DAILY (route: oral) Med Classific ation: Gastroint estinal Therapy Agents omeprazole 20 mg capsule,del ayed release 03-24 00:00: 00 Yes [id number] 1 capsule DAILY 1 capsule DAILY (route: oral) Med Classific ation: Gastroint estinal Therapy Agents sucralfate 1 gram tablet 03-24 00:00: 00 Yes [id number] 1 tablet 3 TIMES DAILY 1 tablet 3 TIMES DAILY (route: oral) Med Classific ation: Gastroint estinal Therapy Agents topiramate 25 mg tablet 03-24 00:00: 00 05-22 23:59 :00 No [id number] 1 tablet 2 TIMES DAILY 1 tablet 2 TIMES DAILY (route: oral) Med Classific ation: Central Nervous System Agents Viberzi 100 mg tablet 03-24 00:00: 00 05-22 23:59 :00 No [id number] 1 tablet 2 TIMES DAILY 1 tablet 2 TIMES DAILY (route: oral) Med Classific ation: Gastroint estinal Therapy Agents albuterol sulfate HFA 90 mcg/actuati on aerosol inhaler 2024-07 00:00: 00 Yes [id number] 2 puff EVERY 4-6 HOURS NEEDED 2 puff EVERY 4-6 HOURS NEEDED (route: inhalation ) Med Classific ation: Respirato ry Therapy Agents atorvastati n 20 mg tablet 2024-07 00:00: 00 Yes [id number] 1 tablet BEDTIME 1 tablet BEDTIME (route: oral) Med Classific ation: Cardiovas cular Therapy Agents cetirizine 10 mg tablet 2024-07 00:00: 00 Yes [id number] 1 tablet EVERY AM 1 tablet EVERY AM (route: oral) Med Classific ation: Respirato ry Therapy Agents citalopram 10 mg tablet 2024-07 00:00: 00 Yes [id number] 2 tablet EVERY AM 2 tablet EVERY AM (route: oral) Med Classific ation: Central Nervous System Agents clotrimazol e-betametha sone 1 %-0.05 % topical cream 2024-07 00:00: 00 Yes [id number] 1 inch 2 TIMES DAILY 1 inch 2 TIMES DAILY (route: topical) Med Classific ation: Dermatolo gical dicyclomine 20 mg tablet 2024-07 00:00: 00 Yes [id number] 1 tablet 3 TIMES DAILY 1 tablet 3 TIMES DAILY (route: oral) Med Classific ation: Gastroint estinal Therapy Agents ferrous sulfate 325 mg (65 mg iron) tablet,oksana yed release 2024-07 00:00: 00 Yes [id number] 1 tablet EVERY AM 1 tablet EVERY AM (route: oral) Med Classific ation: Electroly te Balance-N utritiona l Products gabapentin 300 mg capsule 2024-07 00:00: 00 Yes [id number] 1 capsule 3 TIMES DAILY 1 capsule 3 TIMES DAILY (route: oral) Med Classific ation: Central Nervous System Agents ibuprofen 800 mg tablet 2024-07 00:00: 00 Yes [id number] 1 tablet 2 TIMES DAILY 1 tablet 2 TIMES DAILY (route: oral) Med Classific ation: Analgesic , Anti-infl ammatory or Antipyret ic metformin 1,000 mg tablet 2024-07 00:00: 00 Yes [id number] 1 tablet 2 TIMES DAILY 1 tablet 2 TIMES DAILY (route: oral) Med Classific ation: Endocrine metoclopram rafael 10 mg tablet 2024-07 00:00: 00 Yes [id number] 1 tablet 4 TIMES DAILY 1 tablet 4 TIMES DAILY (route: oral) Med Classific ation: Gastroint estinal Therapy Agents omeprazole 20 mg capsule,del ayed release 2024-07 00:00: 00 Yes [id number] 1 capsule EVERY AM 1 capsule EVERY AM (route: oral) Med Classific ation: Gastroint estinal Therapy Agents Pain Relief (acetaminop hen) 650 mg tablet,exte nded release 2024-07 00:00: 00 Yes [id number] 1 tablet DAILY 1 tablet DAILY (route: oral) Med Classific ation: Analgesic , Anti-infl ammatory or Antipyret ic sucralfate 1 gram tablet 2024-07 00:00: 00 Yes [id number] 1 tablet 3 TIMES DAILY 1 tablet 3 TIMES DAILY (route: oral) Med Classific ation: Gastroint estinal Therapy Agents topiramate 25 mg tablet 2024-07 00:00: 00 Yes [id number] 1 tablet 2 TIMES DAILY 1 tablet 2 TIMES DAILY (route: oral) Med Classific ation: Central Nervous System Agents trazodone 50 mg tablet 2024-07 00:00: 00 Yes [id number] 1 tablet BEDTIME 1 tablet BEDTIME (route: oral) Med Classific ation: Central Nervous System Agents Viberzi 100 mg tablet 2024-07 00:00: 00 Yes [id number] 1 tablet 2 TIMES DAILY 1 tablet 2 TIMES DAILY (route: oral) Med Classific ation: Gastroint estinal Therapy Agents Immunizations Ordered Immunization Name Filled Immunization Name Date Status Comments Refusal Reason REFUSED FLU, PPV 2025-01-23 00:00:00 Vital Signs Vital Name Observation Time Observation Value Commen ts Temperature 2025-06-27 17:22:00.000 98.6 [degF] Temperature 2025-06-18 16:41:00.000 98.6 [degF] Temperature 2025-06-16 17:52:00.000 98.6 [degF] Temperature 2025-05-31 21:12:00.000 98.6 [degF] Pulse 2025-06-27 17:22:00.000 88 /min Pulse 2025-06-18 16:41:00.000 97 /min Pulse 2025-06-16 17:52:00.000 88 /min Pulse 2025-05-31 21:12:00.000 82 /min Respirations 2025-06-27 17:22:00.000 20 /min Respirations 2025-06-18 16:41:00.000 20 /min Respirations 2025-06-16 17:52:00.000 20 /min Respirations 2025-05-31 21:12:00.000 20 /min Systolic Blood Pressure 2025-06-27 17:22:00.000 132 mm [Hg] Systolic Blood Pressure 2025-06-18 16:41:00.000 132 mm [Hg] Systolic Blood Pressure 2025-06-16 17:52:00.000 134 mm [Hg] Systolic Blood Pressure 2025-05-31 21:12:00.000 132 mm [Hg] Diastolic Blood Pressure 2025-06-27 17:22:00.000 78 mm [Hg] Diastolic Blood Pressure 2025-06-18 16:41:00.000 83 mm [Hg] Diastolic Blood Pressure 2025-06-16 17:52:00.000 78 mm [Hg] Diastolic Blood Pressure 2025-05-31 21:12:00.000 82 mm [Hg] Plan of Treatment Planned Activity Planned Date Details Comments Future Scheduled Test SKILLED NU RSE TO EVALUATE PATIENT, IDENTIFY PRIMARY AND CO-MORBID CONDITIONS CODED PER CODING GUIDELINES, AND DEVELOP PATIENT SPECIFIC PLAN OF CARE THAT INCLUDES PATIENT GOAL FOR HOME HEALTH. PLAN OF CARE TO INCLUDE 3 PRN VISIT(S) FOR OASIS DATA COLLECTION/COMPREHENSIVE ASSESSMENT AT TIMEPOINTS PER FEDERAL REGULATIONS. THIS INCLUDES VISITS FOR MIKI, RECERT, SCIC, AND/OR DC. [code = SKILLED NURSE TO EVALUATE PATIENT, IDENTIFY PRIMARY AND CO-MORBID CONDITIONS CODED PER CODING GUIDELINES, AND DEVELOP PATIENT SPECIFIC PLAN OF CARE THAT INCLUDES PATIENT GOAL FOR HOME HEALTH. PLAN OF CARE TO INCLUDE 3 PRN VISIT(S) FOR OASIS DATA COLLECTION/COMPREHENSIVE ASSESSMENT AT TIMEPOINTS PER FEDERAL REGULATIONS. THIS INCLUDES VISITS FOR MIKI, RECERT, SCIC, AND/OR DC.] Future Scheduled Test SKILLED NU RSE TO [...] NOTIFY AGENCY OR PHYSICIAN/PROVIDER OF ANY CONCERNS.] Future Scheduled Test SKILLED NU RSE TO PERFORM ENVIRONMENTAL SAFETY RISK ASSESSMENT AND FALL RISK ASSESSMENT AND PROVIDE INSTRUCTION TO IMPLEMENT ENVIRONMENTAL SAFETY AND FALL PREVENTION STRATEGIES THROUGHOUT THE CERTIFICATION PERIOD. SKILLED NURSE WILL MAINTAIN SITUATIONAL AWARENESS AND WILL NOTIFY CLINICAL COIL WINDER STRAP AND PHYSICIAN/PROVIDER WITH ANY CHANGE IN CONDITION. [code = SKILLED NURSE TO PERFORM ENVIRONMENTAL SAFETY RISK ASSESSMENT AND FALL RISK ASSESSMENT AND PROVIDE INSTRUCTION TO IMPLEMENT ENVIRONMENTAL SAFETY AND FALL PREVENTION STRATEGIES THROUGHOUT THE CERTIFICATION PERIOD. SKILLED NURSE WILL MAINTAIN SITUATIONAL AWARENESS AND WILL NOTIFY CLINICAL COIL WINDER STRAP AND PHYSICIAN/PROVIDER WITH ANY CHANGE IN CONDITION.] [...] Scheduled Test SKILLED NU RSE TO PROVIDE TEACHING ON SIGNS AND SYMPTOMS AND MANAGEMENT OF HYPERTENSION. [code = SKILLED NURSE TO PROVIDE TEACHING ON SIGNS AND SYMPTOMS AND MANAGEMENT OF HYPERTENSION.] Future Scheduled Test SKILLED NU RSE FOR O/A AND SKILLED TEACHING RELATED TO SIGNS AND SYMPTOMS AND MANAGEMENT OF ANEMIA. [code = SKILLED NURSE FOR O/A AND SKILLED TEACHING RELATED TO SIGNS AND SYMPTOMS AND MANAGEMENT OF ANEMIA.] Future Scheduled Test SKILLED NU RSE FOR [...] REPORT.] Future Scheduled Test SKILLED NU RSE TO [...] LOG.] Future Scheduled Test SKILLED NU RSE TO PRE-POUR PER MEDICATION LIST [code = SKILLED NURSE TO PRE-POUR PER MEDICATION LIST] Future Scheduled Test SKILLED NU RSE FOR O/A, TEACHING RELATED TO GERD DISEASE) FOR EARLY IDENTIFICATION OF EXACERBATION OF DISEASE PROCESS. [code = SKILLED NURSE FOR O/A, TEACHING RELATED TO GERD DISEASE) FOR EARLY IDENTIFICATION OF EXACERBATION OF DISEASE PROCESS.] Goal 2025-03-21 Patient Goal - I WANT TO GET BETTER NOT FEAR FALLING AGAIN. Goal 2025-05-22 Patient Goal - I WANT TO GET BETTER NOT FEAR FALLING AGAIN. Goal Patient Goal - I WANT TO GET BETTER NOT FEAR FALLING AGAIN. Goal Provider Goal - A PLAN OF CARE WILL BE ESTABLISHED THAT MEETS PATIENT'S INTERMEDIATE NEEDS AND INCLUDES PATIENT GOAL FOR HOME HEALTH. Goal Provider Goal - PATIENT/CAREGIVER WILL VERBALIZE [...] PATIENT/CAREGIVER WILL VERBALIZE SIGNS AND SYMPTOMS OF HYPERTENSION AND WILL BE ABLE TO DEMONSTRATE ABILITY TO MANAGE EXACERBATION BY END OF THE EPISODE. Goal Provider Goal - PATIENT/CARGIVER WILL VERBALIZE UNDERSTANDING OF ANEMIA INCLUDING SIGNS AND SYMPTOMS, MANAGEMENT OF COMPLICATIONS, AND PRESCRIBED TREATMENT REGIMEN BY END OF EPISODE. Goal Provider Goal - PATIENT/CAREGIVER WILL VERBALIZE/DEMONSTRATE KNOWLEDGE OF DIABETIC MANAGEMENT. CHANGES IN DIABETIC STATUS WILL BE IDENTIFIED AND REPORTED TO PHYSICIAN FOR PROMPT INTERVENTION THROUGHOUT THE CERTIFICATION PERIOD. Goal Provider Goal - BLOOD SUGAR READING WILL BE OBTAINED ORDERED THROUGHOUT CERTIFICATION PERIOD. Goal Provider Goal - PATIENT WILL COMPLY WITH MEDICATION WHEN SKILLED NURSE PRE-POURS MEDICATION THROUGHOUT CERTIFICATION PERIOD. Goal Provider Goal - EXACERBATIONS OF GERD GASTROINTESTINAL DISEASE WILL BE PROMPTLY IDENTIFIED AND INTERVENTIONS IMPLEMENTED TO MINIMIZE RISKS TO PATIENT BY END OF EPISODE. Encounters Start Date/Time End Date/Time Encounter Type Admission Type Attending [facility] Care Department Encounter ID Discharge Date Discharge Status Discharge Condition Discharge Reason Percent Goals Met 2025-05-23 00:00:00 2025-07-21 00:00:00 Outpatient RECERTIFIC [facility] D[facility] [id number] [id number]
== END 2025-07-09 13:13 | disposition home or self-care (01) ==
LOC: HO.HGI 12:16
PROVIDERS: PCP Student in an Organized Health Care Education/Training Program; Visit Provider Nurse Practitioner
DX: K21.9 Gastro-esophageal reflux disease without esophagitis (principal); K26.9 Duodenal ulcer, unspecified as acute or chronic, without hemorrhage or perforation; K58.0 Irritable bowel syndrome with diarrhea
CPT/HCPCS: 99213

== ENCOUNTER → 2025-07-09 12:15 | Outpatient (BNVA) | payer OTHER, SELFPAY | PROVIDERS: PCP Student in an Organized Health Care Education/Training Program; Visit Provider Nurse Practitioner | DX: K21.9 Gastro-esophageal reflux disease without esophagitis (principal); K26.9 Duodenal ulcer, unspecified as acute or chronic, without hemorrhage or perforation; K58.0 Irritable bowel syndrome with diarrhea; K30 Functional dyspepsia; Z79.899 Other long term (current) drug therapy; E11.9 Type 2 diabetes mellitus without complications; K29.70 Gastritis, unspecified, without bleeding | CPT/HCPCS: 99212 ==